=== PATIENT | female | born 1960 | race Hispanic/Latino ===

== ENCOUNTER 2018-02-24 02:24 | Emergency (ER) | payer OTHER ==
[2018-02-24 02:32] VITALS: BP 124/80; PULSE 82; RESP 18; TEMP 98.3; O2SAT 97; BMI 18.1
--- NOTE | 2018-02-24 02:50 | ED PDOC ---
Arrival/HPI - General Chief Complaint: Alcohol Ingestion Time Seen by Provider: 02/24/18 02:27 Historian: Patient - History of Present Illness Narrative History of Present Illness (Text): 02/24/18 02:48 57 year old patient, with past medical history of alcohol abuse, presents to the emergency department via EMS after being found intoxicated in the street. Patient is walking around the emergency department normally and would like to go home. Patient denies any fever, chills, headache, dizziness, chest pain, shortness of breath, cough, abdominal pain, nausea, vomiting, diarrhea, back pain, neck pain, urinary/bowel changes, or any other complaint. Time/Duration: Prior to Arrival Past Medical History - Provider Review Nursing Documentation Reviewed: Yes - Infectious Disease Hx of Infectious Diseases: None - Tetanus Immunization Tetanus Immunization: Unknown - Past Medical History Past Medical History: No Previous - Cardiac Hx Cardiac Disorders: No - Pulmonary Hx Respiratory Disorders: No - Neurological Hx Neurological Disorder: No - HEENT Hx HEENT Disorder: No - Renal Hx Renal Disorder: No - Endocrine/Metabolic Hx Endocrine Disorders: No - Hematological/Oncological Hx Blood Disorders: No - Integumentary Hx Dermatological Disorder: No - Musculoskeletal/Rheumatological Hx Musculoskeletal Disorders: No - Gastrointestinal Hx Gastrointestinal Disorders: No - Genitourinary/Gynecological Hx Genitourinary Disorders: No - Psychiatric Hx Psychophysiologic Disorder: No Hx Substance Use: No - Past Surgical History Past Surgical History: Unable to Obtain - Surgical History Hx Section: Yes - Anesthesia Hx Anesthesia: Yes Hx Anesthesia Reactions: No Hx Malignant Hyperthermia: No - Suicidal Assessment Feels Threatened In Home Enviroment: No Family/Social History - Physician Review Nursing Documentation Reviewed: Yes Family/Social History: No Known Family HX Smoking Status: Heavy Smoker > 10 Cigarettes Daily 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) Hx Substance Use: No Hx Substance Use Treatment: No Allergies/Home Meds Allergies/Adverse Reactions: Allergies No Known Allergies Allergy (Verified 07/23/15 20:13) Home Medications: Home Meds Medication Instructions Recorded Confirmed Unobtainable 07/23/15 07/23/15 Review of Systems - Physician Review All systems were reviewed & negative as marked: Yes - Review of Systems Constitutional: absent: Fevers, Night Sweats Respiratory: absent: SOB, Cough Cardiovascular: absent: Chest Pain Gastrointestinal: absent: Abdominal Pain, Diarrhea, Nausea, Vomiting Genitourinary Female: absent: Urine Output Changes Musculoskeletal: absent: Back Pain, Neck Pain Neurological: absent: Headache, Dizziness Physical Exam Vital Signs Reviewed: Yes Vital Signs Temp Pulse Resp BP Pulse Ox 02/24/18 02:31 98.3 F 82 18 124/80 97 Temperature: Afebrile Blood Pressure: Normal Pulse: Regular Respiratory Rate: Normal Appearance: Positive for: Well-Appearing, Non-Toxic, Comfortable Pain Distress: None Mental Status: Positive for: Alert and Oriented X 3 - Systems Exam Head: Present: Atraumatic, Normocephalic Pupils: Present: PERRL Extroacular Muscles: Present: EOMI Conjunctiva: Present: Normal Mouth: Present: Moist Mucous Membranes Neck: Present: Normal Range of Motion Respiratory/Chest: Present: Clear to Auscultation, Good Air Exchange. No: Respiratory Distress, Accessory Muscle Use Cardiovascular: Present: Regular Rate and Rhythm, Normal S1, S2. No: Murmurs Abdomen: No: Tenderness, Distention, Peritoneal Signs Back: Present: Normal Inspection Upper Extremity: Present: Normal Inspection. No: Cyanosis, Edema Lower Extremity: Present: Normal Inspection. No: Edema Neurological: Present: GCS=15, CN II-XII Intact, Speech Normal Skin: Present: Warm, Dry, Normal Color. No: Rashes Medical Decision Making ED Course and Treatment: 02/24/18 02:51 Impression: 57 year old female presents to the emergency department via EMS after being found intoxicated in the street. Plan: -- Reassess and disposition Prior Visits: Notes and results from previous visits were reviewed. Progress Notes: - Scribe Statement The provider has reviewed the documentation as recorded by the Tg Huynh Provider Scribe Attestation: All medical record entries made by the Meganibole were at my direction and personally dictated by me. I have reviewed the chart and agree that the record accurately reflects my personal performance of the history, physical exam, medical decision making, and the department course for this patient. I have also personally directed, reviewed, and agree with the discharge instructions and disposition. Disposition/Present on Arrival - Present on Arrival Any Indicators Present on Arrival: No History of DVT/PE: No History of Uncontrolled Diabetes: No Urinary Catheter: No History of Decub. Ulcer: No History Surgical Site Infection Following: None - Disposition Have Diagnosis and Disposition been Completed?: Yes Diagnosis: Alcohol use Disposition: HOME/ ROUTINE Disposition Time: 02:40 Condition: IMPROVED Discharge Instructions (ExitCare): Alcohol Use - When Is Drinking a Problem? Additional Instructions: DONOVAN DIALLO, thank you for letting us take care of you today. Your provider was Mike Hollins DO and you were treated for ETOH. The emergency medical care you received today was directed at your acute symptoms. If you were prescribed any medication, please fill it and take as directed. It may take several days for your symptoms to resolve. Return to the Emergency Department if your symptoms worsen, do not improve, or if you have any other problems. Please contact your doctor or call one of the physicians/clinics you have been referred to that are listed on the Patient Visit Information form that is included in your discharge packet. Bring any paperwork you were given at discharge with you along with any medications you are taking to your follow up visit. Our treatment cannot replace ongoing medical care by a primary care provider outside of the emergency department. Thank you for allowing the [facility] team to be part of your care today. Follow up with your primary care doctor in 2-3 days for re-evaluation. Referrals: Winsome Mar MD [Primary Care Provider] - Follow up with primary Forms: [employer] (Georgian)
== END 2018-02-24 02:40 | disposition home or self-care (01) ==
LOC: ED 02:24
DX: Z72.89 Other problems related to lifestyle (principal); F17.210 Nicotine dependence, cigarettes, uncomplicated

== ENCOUNTER 2018-03-21 11:34 | Emergency (ER) | payer OTHER ==
[2018-03-21 11:50] VITALS: BMI 26.2
[2018-03-21 11:56] VITALS: RESP 18
--- NOTE | 2018-03-21 12:45 | ED PDOC ---
Arrival/HPI - General Chief Complaint: Alcohol Ingestion Time Seen by Provider: 03/21/18 12:40 Historian: EMS - History of Present Illness Narrative History of Present Illness (Text): 57yo female, history of hypertension, copd, brought to Emergency room by EMS due to public intoxication. Patient denies any medical complaints at this time and wants to leave the Emergency room. A full HPI is unavailable due to patient's drunken state. Symptom Onset: Gradual Past Medical History - Provider Review Nursing Documentation Reviewed: Yes - Infectious Disease Hx of Infectious Diseases: None - Tetanus Immunization Tetanus Immunization: Unknown - Reproductive Menopause: Yes - Past Medical History Past Medical History: No Previous - Cardiac Hx Cardiac Disorders: No - Pulmonary Hx Respiratory Disorders: No - Neurological Hx Neurological Disorder: No - HEENT Hx HEENT Disorder: No - Renal Hx Renal Disorder: No - Endocrine/Metabolic Hx Endocrine Disorders: No - Hematological/Oncological Hx Blood Disorders: No - Integumentary Hx Dermatological Disorder: No - Musculoskeletal/Rheumatological Hx Musculoskeletal Disorders: No - Gastrointestinal Hx Gastrointestinal Disorders: No - Genitourinary/Gynecological Hx Genitourinary Disorders: No - Psychiatric Hx Psychophysiologic Disorder: No Hx Substance Use: No - Past Surgical History Past Surgical History: Unable to Obtain - Surgical History Hx Section: Yes - Anesthesia Hx Anesthesia: Yes Hx Anesthesia Reactions: No Hx Malignant Hyperthermia: No - Suicidal Assessment Feels Threatened In Home Enviroment: No Family/Social History - Physician Review Nursing Documentation Reviewed: Yes Smoking Status: Heavy Smoker > 10 Cigarettes Daily 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 ENT: normal pharynx Eye: EOMI, PERRL Neck: no JVD, supple, no adenopathy CV: regular rate, regular rhythm, no rubs, no murmur, no gallops, S1, S2, pulses equal and strong Pulm: no distress, clear to auscultation, no wheeze, no rhonchi, breath sounds equal, no rales Abd: soft, nontender, no guarding, no rebound, no rigidity, normal bowel sounds Ext: no edema Skin: good color, no rash, no cyanosis Psych: Intoxicated Neuro: oriented x 3, CN2-12 intact grossly, motor intact, sensation intact Vital Signs Temp Pulse Resp BP Pulse Ox 03/21/18 11:34 98.3 F 48 L 18 136/85 93 L Medical Decision Making ED Course and Treatment: Impression: 57yo female, brought to Emergency room due to intoxication Plan: -- Patient placed in 4 point restraints due to concerns of safety -- Reassess and disposition Prior Visits: Notes and results from previous visits were reviewed. Patient seen in Emergency room on 02/24/18 due to intoxication and was discharged home. Progress Notes: 03/21/18 15:42 patient is awake and alert, clinically sober, clear speech and witnessed to have steady gait. patient denies HI or SI and appears stable for dc. - Scribe Statement The provider has reviewed the documentation as recorded by the Tg Kang Provider Scribe Attestation: All medical record entries made by the Meganibole were at my direction and personally dictated by me. I have reviewed the chart and agree that the record accurately reflects my personal performance of the history, physical exam, medical decision making, and the department course for this patient. I have also personally directed, reviewed, and agree with the discharge instructions and disposition. Disposition/Present on Arrival - Present on Arrival Any Indicators Present on Arrival: No History of DVT/PE: No History of Uncontrolled Diabetes: No Urinary Catheter: No History of Decub. Ulcer: No History Surgical Site Infection Following: None - Disposition Have Diagnosis and Disposition been Completed?: Yes Diagnosis: Alcohol intoxication Disposition: HOME/ ROUTINE Disposition Time: 15:43 Patient Plan: Discharge Discharge Instructions (ExitCare): Alcohol Abuse and Alcoholism (DC) Forms: [employer] (Nepali)
[2018-03-21 15:32] VITALS: O2SAT 95
[2018-03-21 15:52] VITALS: BP 132/75; PULSE 52; TEMP 98
== END 2018-03-21 15:50 | disposition home or self-care (01) ==
LOC: ED 11:34
DX: F10.129 Alcohol abuse with intoxication, unspecified (principal)

== ENCOUNTER 2018-05-22 23:40 | Inpatient (IN) | payer MEDICAID, OTHER ==
--- NOTE | 2018-05-23 00:36 | ED PDOC ---
Arrival/HPI - General Historian: Patient - History of Present Illness Narrative History of Present Illness (Text): Yasmin Kent is a 57 year old female smoker, whose past medical history includes alcohol abuse, COPD, hypertension, and anemia, who presents to the Emergency department complaining of shortness of breath for the past 4 hours. Patient reports associated chest tightness and productive cough with yellow sputum over the last few days. Patient admits to drinking 1 beer with lunch today. Patient takes her medications as prescribed. Patient denies any fever, chills, chest pain, diaphoresis, palpitation, jaw pain, arm pain, dizziness, headache, hemoptysis, abdominal pain, nausea, vomiting, diarrhea, or any other complaints, Symptom Onset: Gradual Symptom Course: Unchanged Activities at Onset: Light Context: Home <Katya Dangelo - Last Filed: 05/23/18 02:29> <Steve Cruz - Last Filed: 05/23/18 02:31> - General Chief Complaint: Shortness Of Breath Time Seen by Provider: 05/22/18 23:54 Past Medical History - Provider Review Nursing Documentation Reviewed: Yes - Infectious Disease Hx of Infectious Diseases: None - Tetanus Immunization Tetanus Immunization: Unknown - Past Medical History Past Medical History: No Previous - Cardiac Hx Cardiac Disorders: No - Pulmonary Hx Respiratory Disorders: No - Neurological Hx Neurological Disorder: No - HEENT Hx HEENT Disorder: No - Renal Hx Renal Disorder: No - Endocrine/Metabolic Hx Endocrine Disorders: No - Hematological/Oncological Hx Blood Disorders: No - Integumentary Hx Dermatological Disorder: No - Musculoskeletal/Rheumatological Hx Musculoskeletal Disorders: No - Gastrointestinal Hx Gastrointestinal Disorders: No - Genitourinary/Gynecological Hx Genitourinary Disorders: No - Psychiatric Hx Psychophysiologic Disorder: No Hx Substance Use: No - Past Surgical History Past Surgical History: Unable to Obtain - Surgical History Hx Section: Yes - Anesthesia Hx Anesthesia: Yes Hx Anesthesia Reactions: No Hx Malignant Hyperthermia: No - Suicidal Assessment Feels Threatened In Home Enviroment: No <Katya Dangelo - Last Filed: 05/23/18 02:29> Family/Social History - Physician Review Nursing Documentation Reviewed: Yes Family/Social History: Unknown Family HX Smoking Status: Heavy Smoker > 10 Cigarettes Daily 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 absent: Fevers Eyes: Normal ENT: Normal Respiratory: SOB, Cough, Sputum Cardiovascular: absent: Chest Pain Gastrointestinal: Normal. absent: Abdominal Pain, Diarrhea, Nausea, Vomiting Genitourinary Female: Normal. absent: Dysuria, Frequency, Hematuria, Urine Output Changes Musculoskeletal: Normal. absent: Back Pain, Neck Pain Skin: Normal. absent: Rash Neurological: Normal. absent: Headache, Dizziness Endocrine: Normal Hemo/Lymphatic: Normal Psychiatric: Normal <Reynaldo Dangeloyssa - Last Filed: 05/23/18 02:29> Physical Exam Vital Signs Reviewed: Yes Vital Signs Temp Pulse Resp BP Pulse Ox 05/23/18 00:06 97.6 F 74 20 133/86 100 Temperature: Afebrile Blood Pressure: Normal Pulse: Regular Respiratory Rate: Normal Appearance: Positive for: Non-Toxic, Unkept, Other (Smells of tobacco) Pain Distress: None Mental Status: Positive for: Alert and Oriented X 3 - Systems Exam Head: Present: Atraumatic, Normocephalic Pupils: Present: PERRL Extroacular Muscles: Present: EOMI Conjunctiva: Present: Normal Ears: Present: Normal, NORMAL TM, Normal Canal. No: Erythema, TM Bulging, Fluid, TM Perf Mouth: Present: Moist Mucous Membranes Pharnyx: Present: Normal. No: ERYTHEMA, EXUDATE, TONSILS ENLARGED, Peritonsilar Swelling, Uvular Deviation, Muffled/Hoarse Voice, Strider, Soft Palate/Uvular Edema Nose (External): Present: Atraumatic Nose (Internal): Present: Normal Inspection Neck: Present: Normal Range of Motion. No: Meningeal Signs, MIDLINE TENDERNESS, Paraspinal Tenderness Respiratory/Chest: Present: Wheezes (Diffuse inspiratory and expiratory wheezing bilaterally, R>L). No: Respiratory Distress, Accessory Muscle Use Cardiovascular: Present: Regular Rate and Rhythm, Normal S1, S2. No: Murmurs Abdomen: No: Tenderness, Distention, Peritoneal Signs Back: Present: Normal Inspection. No: CVA Tenderness, Midline Tenderness, Paraspinal Tenderness Upper Extremity: Present: Normal Inspection. No: Cyanosis, Edema Lower Extremity: Present: Normal Inspection. No: Edema Neurological: Present: GCS=15, CN II-XII Intact, Speech Normal Skin: Present: Warm, Dry, Normal Color. No: Rashes Psychiatric: Present: Alert, Oriented x 3, Normal Insight, Normal Concentration <Katya Dangelo - Last Filed: 05/23/18 02:29> Vital Signs Temp Pulse Resp BP Pulse Ox 05/23/18 00:06 97.6 F 74 20 133/86 100 <Steve Cruz - Last Filed: 05/23/18 02:31> Medical Decision Making ED Course and Treatment: Impression: 57 year old female complaining of shortness of breath, productive cough with yellow sputum. Plan: -- CBC, CMP -- Cardiac Iso -- BNP -- Alcohol serum -- EKG -- Chest X-ray -- Aspirin -- Solu-medrol -- Duoneb -- Reassess and disposition Prior Visits: Notes and results from previous visits were reviewed. Progress Notes: Reviewed EKG, NSR at 79 bpm. Normal intervals. Non-specific ST changes. CXR Impression: As read by me, flattened diaphragm, otherwise no acute processes. 05/23/18 02:[address] Bryan, who is aware and agrees with plan. Accepts pt in to hospitalist service. resident care provider notified. 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 Physician - EKG Interpretation Interpreted by ED Physician: Yes Type: 12 lead EKG - Medication Orders Current Medication Orders: Albuterol/Ipratropium (Duoneb 3 Mg/0.5 Mg (3 Ml) Ud) 3 ml IH Q15M ALBA Stop: 05/23/18 01:16 Methylprednisolone (Solu-Medrol) 125 mg IVP STAT STA Stop: 05/23/18 00:33 <Katya Dangelo - Last Filed: 05/23/18 02:29> - Lab Interpretations Lab Results: 05/23/18 00:50 05/23/18 00:50 Lab Results 05/23/18 00:50: Sodium 143, Potassium 3.6, Chloride 112 H, Carbon Dioxide 22, Anion Gap 12, BUN 15, Creatinine 0.7, Est GFR ( Amer) > 60, Est GFR (Non- Af Amer) > 60, Random Glucose 84, Calcium 8.9, Total Bilirubin 0.1 L, AST 39 H, ALT 27, Alkaline Phosphatase 71, Lactate Dehydrogenase 545, Total Creatine Kinase 161, Troponin I < 0.01, NT-Pro-B Natriuret Pep 87.3, Total Protein 7.1, Albumin 4.0, Globulin 3.2, Albumin/Globulin Ratio 1.2 05/23/18 00:50: WBC 6.8, RBC 3.21 L, Hgb 10.6 L, Hct 32.9 L, MCV 102.5, MCH 33.0, MCHC 32.2, RDW 15.1 H, Plt Count 368, MPV 8.3, Gran % 55.0, Lymph % (Auto) 33.0, [place] % (Auto) 8.1 H, Eos % (Auto) 2.6, Baso % (Auto) 1.3, Gran # 3.75, Lymph # (Auto) 2.3, [place] # (Auto) 0.6, Eos # (Auto) 0.2, Baso # (Auto) 0.09 - RAD Interpretation Radiology Orders: 05/23/18 00:05 CXR (PA/LAT) [CHEST TWO VIEWS (PA/LAT)] [RAD] Stat - Medication Orders Current Medication Orders: Discontinued Medications Albuterol/Ipratropium (Duoneb 3 Mg/0.5 Mg (3 Ml) Ud) 3 ml IH Q15M ALBA Stop: 05/23/18 01:16 Last Admin: 05/23/18 01:20 Dose: 3 ml Aspirin (Aspirin) 325 mg PO STAT STA Stop: 05/23/18 00:35 Last Admin: 05/23/18 01:37 Dose: 325 mg Methylprednisolone (Solu-Medrol) 125 mg IVP STAT STA Stop: 05/23/18 00:33 Last Admin: 05/23/18 01:00 Dose: 125 mg IVP Administration Document 05/23/18 01:00 MILLY (Rec: 05/23/18 01:38 RG [id number]) Charges for Administration # of IVP Administrations 1 <Steve Cruz - Last Filed: 05/23/18 02:31> - Scribe Statement The provider has reviewed the documentation as recorded by the Tg Son Provider Scribe Attestation: All medical record entries made by the Scribe were at my direction and personally dictated by me. I have reviewed the chart and agree that the record accurately reflects my personal performance of the history, physical exam, medical decision making, and the department course for this patient. I have also personally directed, reviewed, and agree with the discharge instructions and disposition. <Katya Dangelo - Last Filed: 05/23/18 02:29> - PA / BILINGUAL INSTRUCTOR / Resident Statement / has reviewed & agrees with the documentation as recorded. / has examined the patient and agrees with the treatment plan. <Steve Cruz - Last Filed: 05/23/18 02:31> Disposition/Present on Arrival - Present on Arrival History of DVT/PE: No History of Uncontrolled Diabetes: No Urinary Catheter: No History of Decub. Ulcer: No History Surgical Site Infection Following: None <Katya Dangelo - Last Filed: 05/23/18 02:29> - Present on Arrival Any Indicators Present on Arrival: No History of DVT/PE: No History of Uncontrolled Diabetes: No Urinary Catheter: No History of Decub. Ulcer: No History Surgical Site Infection Following: None - Disposition Have Diagnosis and Disposition been Completed?: Yes Disposition Time: 02:31 <Steve Cruz - Last Filed: 05/23/18 02:31> - Disposition Diagnosis: COPD exacerbation Disposition: HOSPITALIZED Condition: STABLE Referrals: Winsome Mar MD [Primary Care Provider] - Follow up with primary Forms: [employer] (Tajik)
[2018-05-23] MEDS: Albuterol-Ipratrop 3 mg / 0.5 (3 ml) UD IH SCH ×6 (00:46→20:26)
[2018-05-23 01:54] LABS: ALB/GLOB RATIO 1.2 (1.1-1.8); ALT/SGPT 27 U/L (7-56); AST/SGOT 39 U/L (14-36); BLOOD UREA NITROGEN 15 mg/dL (7-21); CALCIUM 8.9 mg/dL (8.4-10.5); GFR NON-AFRICAN AMERICAN > 60
[2018-05-23 02:05] LABS: B-TYPE NATRIURETIC PEPTIDE 87.3 pg/mL (0-450); TROPONIN I < 0.01 ng/mL
[2018-05-23 02:13] LABS: BASO # 0.09 K/mm3 (0.0-2.0); BASO % 1.3 % (0.0-3.0); EOS # 0.2 (0.0-0.7); EOS % 2.6 % (1.5-5.0); GRAN # 3.75 (1.4-6.5); HEMOGLOBIN 10.6 g/dL (12.0-16.0); LYMPH # 2.3 (1.2-3.4); MEAN CELL VOLUME 102.5 fl (80.0-105.0); MEAN CORPUSCULAR HGB CONC 32.2 g/dl (31.0-37.0); MEAN PLATELET VOLUME 8.3 fl (7.0-11.0); MONO # 0.6 (0.1-0.6); MONO % 8.1 % (1.0-6.0); RBC 3.21 10^6/uL (3.5-6.1); RED CELL DISTRIBUTION WIDTH 15.1 % (11.5-14.5); WHITE BLOOD COUNT 6.8 10^3/uL (4.5-11.0)
--- NOTE | 2018-05-23 03:17 | CP.PCM.HP ---
<Sharon Pablo - Last Filed: 05/23/18 03:48> History of Present Illness - History of Present Illness History of Present Illness: Sharon Pablo, PGY1 Hospital H&P This is a 57 year old female with PMH of anemia, HTN, COPD, alcohol abuse with multiple ED visits for public intoxication presenting to the ED for chest pressure, productive cough with yellow sputum and SOB that began Tuesday. Patient states she has been short of breath over the last 3-4 days and started to feel chest pressure with productive cough over the last day. She denies having similar symptoms in the past. She states her last drink was a few days ago when she had 2 beers. She says she is compliant with her medications which consist of an iron pill and an unknown blood pressure medication. She denies chest pain, vomiting, fevers, chills, headaches, runny nose, sinus congestion, hemoptysis back pain, abdominal pain, urinary complaints, numbness, tingling, swelling, diarrhea, constipation, recent travel, sickness, trauma and lifestyle changes. 12 point ROS noted here, otherwise unremarkable. PMD: Dr. Winsome Mar Pharmacy[facility]: iron pill, unknown BP pill PMH: anemia, HTN, COPD, alcohol abuse SH: drinks 3-5 beers per week, sometimes "more" for many years, smokes 1/2 ppd for 40 years, denies drug use Sx: 2 x 30 years ago FH: denies All: antihistimines Present on Admission - Present on Admission Any Indicators Present on Admission: No Past Patient History - Infectious Disease Hx of Infectious Diseases: None - Tetanus Immunizations Tetanus Immunization: Unknown - Past Social History Smoking Status: Heavy Smoker > 10 Cigarettes Daily - CARDIAC Hx Cardiac Disorders: No - PULMONARY Hx Respiratory Disorders: No - NEUROLOGICAL Hx Neurological Disorder: No - HEENT Hx HEENT Problems: No - RENAL Hx Chronic Kidney Disease: No - ENDOCRINE/METABOLIC Hx Endocrine Disorders: No - HEMATOLOGICAL/ONCOLOGICAL Hx Blood Disorders: No - INTEGUMENTARY Hx Dermatological Problems: No - MUSCULOSKELETAL/RHEUMATOLOGICAL Hx Musculoskeletal Disorders: No - GASTROINTESTINAL Hx Gastrointestinal Disorders: No - GENITOURINARY/GYNECOLOGICAL Hx Genitourinary Disorders: No - PSYCHIATRIC Hx Psychophysiologic Disorder: No Hx Substance Use: No - SURGICAL HISTORY Hx Section: Yes - ANESTHESIA Hx Anesthesia: Yes Hx Anesthesia Reactions: No Hx Malignant Hyperthermia: No Meds Allergies/Adverse Reactions: Allergies Allergy/AdvReac Type Severity Reaction Status Date / Time Antihistamines - Alkylamine Allergy RASH Verified 05/22/18 23:48 Physical Exam - Constitutional Appears: No Acute Distress - Head Exam Head Exam: ATRAUMATIC, NORMAL INSPECTION - Eye Exam Eye Exam: EOMI Pupil Exam: PERRL - ENT Exam ENT Exam: Mucous Membranes Moist - Respiratory Exam Respiratory Exam: Wheezes. absent: Accessory Muscle Use, Respiratory Distress Additional comments: expiratory wheezing appreciated in all lung levin - Cardiovascular Exam Cardiovascular Exam: REGULAR RHYTHM, +S1, +S2 - GI/Abdominal Exam GI & Abdominal Exam: Normal Bowel Sounds, Soft. absent: Firm, Guarding, Tenderness - Extremities Exam Extremities exam: Positive for: normal inspection, pedal pulses present. Negative for: calf tenderness - Back Exam Back exam: NORMAL INSPECTION. absent: CVA tenderness (L), CVA tenderness (R) - Neurological Exam Neurological exam: Alert, Oriented x3 - Skin Skin Exam: Normal Color, Warm Results - Vital Signs Recent Vital Signs: Last Vital Signs Temp 97.6 F 05/23/18 00:06 Pulse 74 05/23/18 00:06 Resp 20 05/23/18 00:06 BP 133/86 05/23/18 00:06 Pulse Ox 100 05/23/18 00:06 - Labs Result Diagrams: 05/23/18 00:50 05/23/18 00:50 Labs: Laboratory Results - last 24 hr 05/23/18 05/23/18 05/23/18 00:50 00:50 00:50 WBC 6.8 RBC 3.21 L Hgb 10.6 L Hct 32.9 L MCV 102.5 MCH 33.0 MCHC 32.2 RDW 15.1 H Plt Count 368 MPV 8.3 Gran % 55.0 Lymph % (Auto) 33.0 [place] % (Auto) 8.1 H Eos % (Auto) 2.6 Baso % (Auto) 1.3 Gran # 3.75 Lymph # (Auto) 2.3 [place] # (Auto) 0.6 Eos # (Auto) 0.2 Baso # (Auto) 0.09 Sodium 143 Potassium 3.6 Chloride 112 H Carbon Dioxide 22 Anion Gap 12 BUN 15 Creatinine 0.7 Est GFR ( Amer) > 60 Est GFR (Non-Af Amer) > 60 Random Glucose 84 Calcium 8.9 Total Bilirubin 0.1 L AST 39 H ALT 27 Alkaline Phosphatase 71 Lactate Dehydrogenase 545 Total Creatine Kinase 161 Troponin I < 0.01 NT-Pro-B Natriuret Pep 87.3 Total Protein 7.1 Albumin 4.0 Globulin 3.2 Albumin/Globulin Ratio 1.2 Alcohol, Quantitative 166 H Assessment & Plan - Assessment and Plan (Free Text) Assessment: This is a 57 year old female with PMH of anemia, HTN, COPD, alcohol abuse with multiple ED visits for public intoxication presenting to the ED for chest pressure, productive cough with yellow sputum and SOB that began Tuesday. Plan: Shortness of breath -COPD exacerbation vs URI -ABG pending -CXR shows increased AP diameter and flattened diaphragm consistent with COPD. F/u official read -duonebs prn and chucky -azithromycin and rocephin -solumedrol 40mg IVP BID -UDS pending Hx of alcohol abuse -CIWA protocol -ativan prn -seizure precautions -alcohol level of 166 on admission -bannana bag -social welfare administrator referral for alcohol education Hx of tobacco use -nicotine patch -social welfare administrator referral for tobacco education Hx of HTN -BP currently controlled -patient cannot remember BP med, her pharmacy is [facility] in [place] Hx of anemia -iron studies, B12, folate pending -continue iron tab PPX with protonix and lovenox HHD Patient seen and examined with attending, Dr. Bryan <Daniela Bryan - Last Filed: 05/23/18 05:28> Results - Vital Signs Recent Vital Signs: Last Vital Signs Temp 97.6 F 05/23/18 00:06 Pulse 74 05/23/18 00:06 Resp 20 05/23/18 00:06 BP 133/86 05/23/18 00:06 Pulse Ox 100 05/23/18 00:06 - Labs Result Diagrams: 05/23/18 00:50 05/23/18 00:50 Labs: Laboratory Results - last 24 hr 05/23/18 05/23/18 05/23/18 00:50 00:50 00:50 WBC 6.8 RBC 3.21 L Hgb 10.6 L Hct 32.9 L MCV 102.5 MCH 33.0 MCHC 32.2 RDW 15.1 H Plt Count 368 MPV 8.3 Gran % 55.0 Lymph % (Auto) 33.0 [place] % (Auto) 8.1 H Eos % (Auto) 2.6 Baso % (Auto) 1.3 Gran # 3.75 Lymph # (Auto) 2.3 [place] # (Auto) 0.6 Eos # (Auto) 0.2 Baso # (Auto) 0.09 Sodium 143 Potassium 3.6 Chloride 112 H Carbon Dioxide 22 Anion Gap 12 BUN 15 Creatinine 0.7 Est GFR ( Amer) > 60 Est GFR (Non-Af Amer) > 60 Random Glucose 84 Calcium 8.9 Total Bilirubin 0.1 L AST 39 H ALT 27 Alkaline Phosphatase 71 Lactate Dehydrogenase 545 Total Creatine Kinase 161 Troponin I < 0.01 NT-Pro-B Natriuret Pep 87.3 Total Protein 7.1 Albumin 4.0 Globulin 3.2 Albumin/Globulin Ratio 1.2 Alcohol, Quantitative 166 H Attending/Attestation - Attestation I have personally seen and examined this patient.: Yes I have fully participated in the care of the patient.: Yes I have reviewed all pertinent clinical information: Yes Notes (Text): 05/23/18 05:27 Patient was seen when she was in bed # 4 in the ER. Agree with history, physical examination, assessment and plan.
[2018-05-23] MEDS ORDERED: Albuterol-Ipratrop 3 mg / 0.5 (3 ml) UD IH PRN (03:26)
[2018-05-23] MEDS ORDERED: Multivitamin (MVI) 10 ML, Thiamine 100 MG, Folic Acid 1 MG in Sodium Chloride 0.9% 1,00... IV ONE (03:33)
[2018-05-23 04:58] LABS: ARTERIAL BLOOD GAS HCO3 20.5 mmol/L (21-28); ARTERIAL BLOOD GAS HEMOGLOBIN 10.3 g/dL (11.7-17.4); ARTERIAL BLOOD GAS O2 CAPACITY 13.9 mL/dl (16-24); ARTERIAL BLOOD GAS O2 CONTENT 13.7 ML/dl (15-23); ARTERIAL BLOOD GAS O2 SAT 98.7 % (95-98); ARTERIAL BLOOD GAS PCO2 38 mm/Hg (35-45); ARTERIAL BLOOD GAS PH 7.34 (7.35-7.45); ARTERIAL BLOOD GAS TCO2 21.7 mmol.L (22-28)
[2018-05-23 06:05] LABS: BASO # 0.06 K/mm3 (0.0-2.0); BASO % 0.7 % (0.0-3.0); EOS % 0.2 % (1.5-5.0); GRAN # 7.88 (1.4-6.5); GRAN % 92.2 % (50.0-68.0); HEMOGLOBIN 11.1 g/dL (12.0-16.0); LYMPH # 0.6 (1.2-3.4); LYMPH % 6.5 % (22.0-35.0); MEAN CELL VOLUME 102.4 fl (80.0-105.0); MEAN CORPUSCULAR HEMOGLOBIN 33.2 pg (25.0-35.0); MEAN CORPUSCULAR HGB CONC 32.5 g/dl (31.0-37.0); MEAN PLATELET VOLUME 8.4 fl (7.0-11.0); MONO % 0.4 % (1.0-6.0); PLATELET COUNT 384 10^3/uL (120.0-450.0); RBC 3.34 10^6/uL (3.5-6.1); RED CELL DISTRIBUTION WIDTH 15.1 % (11.5-14.5); WHITE BLOOD COUNT 8.6 10^3/uL (4.5-11.0)
[2018-05-23 06:13] LABS: IRON 35 ug/dL (45-180)
[2018-05-23 06:15] LABS: ALB/GLOB RATIO 1.2 (1.1-1.8); ALBUMIN 4.3 g/dL (3.0-4.8); ALT/SGPT 24 U/L (7-56); AST/SGOT 41 U/L (14-36); BLOOD UREA NITROGEN 15 mg/dL (7-21); CALCIUM 9.2 mg/dL (8.4-10.5); GFR NON-AFRICAN AMERICAN > 60
[2018-05-23 06:22] LABS: % IRON SATURATION 8 % (20-55); TOTAL IRON BINDING CAPACITY 443 ug/dL (265-497)
[2018-05-23 06:39] LABS: BAND 2 % (0-2); BASOPHIL 1 % (0.0-1.0); EOSINOPHIL 1 % (0.0-3.0); LYMPHOCYTE 7 % (22.0-35.0); MONOCYTE 1 % (1.0-6.0); NEUTROPHIL 88 % (50.0-70.0); PLATELET ESTIMATE NORMAL (NORMAL)
[2018-05-23 07:03] LABS: BARBITURATES, UR NEGATIVE (NEGATIVE); BENZODIAZEPINES, UR NEGATIVE (NEGATIVE); OPIATES, UR NEGATIVE (NEGATIVE); PHENCYCLIDINE, UR NEGATIVE (NEGATIVE)
[2018-05-23] MEDS: Pantoprazole 40 mg EC Tab PO SCH (07:14)
--- NOTE | 2018-05-23 08:18 | RAD ---
Date of service: 05/23/2018 HISTORY: SOB COMPARISON: No prior. TECHNIQUE: Chest PA and lateral FINDINGS: LUNGS: No active pulmonary disease. PLEURA: No significant pleural effusion identified. No pneumothorax apparent. CARDIOVASCULAR: No aortic atherosclerotic calcification present. Normal cardiac size. No pulmonary vascular congestion. OSSEOUS STRUCTURES: No significant abnormalities. VISUALIZED UPPER ABDOMEN: Normal. OTHER FINDINGS: None. IMPRESSION: No active disease.
[2018-05-23] MEDS ORDERED: cefTRIAXone 1 gm 1 GM/100 ML BAG IVPB SCH (10:00)
[2018-05-23] MEDS: MethylPREDNISolone 40 mg Vial IVP SCH ×2 (10:33→21:28)
[2018-05-23] MEDS: Azithromycin 500MG/NS 250ml 500 MG/250 ML BAG IVPB SCH (10:33)
[2018-05-23] MEDS: Enoxaparin 40 mg Syringe SC SCH (10:34)
[2018-05-23] MEDS: Iron Complex Polysacch 150mg Cap PO SCH (10:34)
[2018-05-23 12:05] VITALS: BMI 18.1
[2018-05-23 14:04] LABS: FOLATE 10.4 ng/mL
--- NOTE | 2018-05-23 18:50 | CARD ---
APPROVED REPORT Date of service: 05/23/2018 EKG Measurement Heart [id number] <Conclusion> Normal sinus rhythm Possible Left atrial enlargement Anteroseptal infarct, age undetermined Abnormal ECG
[2018-05-24] MEDS: Albuterol-Ipratrop 3 mg / 0.5 (3 ml) UD IH SCH ×4 (01:28→20:53)
[2018-05-24] MEDS: Pantoprazole 40 mg EC Tab PO SCH (05:09)
[2018-05-24 06:37] LABS: GRAN # 12.98 (1.4-6.5); GRAN % 92.1 % (50.0-68.0); HEMOGLOBIN 9.7 g/dL (12.0-16.0); LYMPH # 0.5 (1.2-3.4); LYMPH % 3.8 % (22.0-35.0); MEAN CELL VOLUME 102.3 fl (80.0-105.0); MEAN CORPUSCULAR HEMOGLOBIN 32.2 pg (25.0-35.0); MEAN CORPUSCULAR HGB CONC 31.5 g/dl (31.0-37.0); MEAN PLATELET VOLUME 8.7 fl (7.0-11.0); MONO # 0.6 (0.1-0.6); MONO % 4.1 % (1.0-6.0); RBC 3.01 10^6/uL (3.5-6.1); WHITE BLOOD COUNT 14.1 10^3/uL (4.5-11.0)
[2018-05-24 07:15] LABS: ALB/GLOB RATIO 1.1 (1.1-1.8); ALBUMIN 3.6 g/dL (3.0-4.8); ALT/SGPT 14 U/L (7-56); AST/SGOT 28 U/L (14-36); BLOOD UREA NITROGEN 15 mg/dL (7-21); CALCIUM 8.6 mg/dL (8.4-10.5); GFR NON-AFRICAN AMERICAN > 60
[2018-05-24] MEDS: Multivitamin Therapeutic Tab PO SCH (08:47)
[2018-05-24] MEDS: Iron Complex Polysacch 150mg Cap PO SCH (11:05)
[2018-05-24] MEDS: MethylPREDNISolone 40 mg Vial IVP SCH ×2 (11:06→21:39)
[2018-05-24] MEDS: Azithromycin 500MG/NS 250ml 500 MG/250 ML BAG IVPB SCH (11:06)
[2018-05-24] MEDS: Enoxaparin 40 mg Syringe SC SCH (11:07)
--- NOTE | 2018-05-24 17:15 | CP.PCM.PN ---
Subjective - Date & Time of Evaluation Date of Evaluation: 05/24/18 Time of Evaluation: 09:30 - Subjective Subjective: Cory Parrish, PGY-1 Medicine Progress Note for Dr. Avitia: Pt was seen and examined this AM at bedside. Pt states that she has some SOB when she woke up and is currently on nebulizer treatment. She states that she is already feeling better with the nebulizer treatment. She states that she is still coughing but it is improving from admission. She continues to deny fevers, chills, chest pain, palpitations, abd pain, nausea, vomiting, constipation, diarrhea or dysuria. Objective - Vital Signs/Intake and Output Vital Signs (last 24 hours): Temp Pulse Resp BP Pulse Ox 98.5 F 98 H 20 120/69 95 05/24/18 12:00 05/24/18 14:00 05/24/18 12:00 05/24/18 12:00 05/23/18 06:50 Intake and Output: 05/24/18 05/24/18 06:59 18:59 Intake Total 840 Balance 840 - Medications Medications: Current Medications Acetaminophen (Tylenol 325mg Tab) 650 mg PO Q6H PRN PRN Reason: Pain, Mild (1-3) Last Admin: 05/23/18 15:41 Dose: 650 mg Albuterol/Ipratropium (Duoneb 3 Mg/0.5 Mg (3 Ml) Ud) 3 ml IH Q2H PRN PRN Reason: Shortness of Breath Albuterol/Ipratropium (Duoneb 3 Mg/0.5 Mg (3 Ml) Ud) 3 ml IH [id number] [facility]UCKY Last Admin: 05/24/18 14:08 Dose: 3 ml Enoxaparin Sodium (Lovenox) 40 mg SC DAILY [facility]; Protocol Last Admin: 05/24/18 11:07 Dose: 40 mg Folic Acid (Folic Acid) 1 mg PO DAILY [facility] Last Admin: 05/24/18 11:07 Dose: 1 mg Azithromycin (Zithromax 500mg In Ns) 500 mg in 250 mls @ 167 mls/hr IVPB DAILY [facility]; Protocol Last Admin: 05/24/18 11:06 Dose: 167 mls/hr Lorazepam (Ativan) 2 mg IVP Q4H PRN; Protocol PRN Reason: Symptoms of alcohol withdrawl Last Admin: 05/24/18 11:07 Dose: 2 mg Methylprednisolone (Solu-Medrol) 40 mg IVP Q12 [facility] Last Admin: 05/24/18 11:06 Dose: 40 mg Multivitamins (Thera Tab) 1 tab PO 0800 [facility] Last Admin: 05/24/18 08:47 Dose: 1 tab Nicotine (Nicoderm Cq) 1 patch TD DAILY [facility] Last Admin: 05/24/18 11:06 Dose: 1 patch Pantoprazole Sodium (Protonix Ec Tab) 40 mg PO 0600 [facility] Last Admin: 05/24/18 05:09 Dose: 40 mg Polysaccharide Iron Complex (Ferrex-150) 150 mg PO DAILY [facility] Last Admin: 05/24/18 11:05 Dose: 150 mg Thiamine HCl (Vitamin B1 Tab) 100 mg PO DAILY [facility] Last Admin: 05/24/18 11:06 Dose: 100 mg - Labs Labs: 05/24/18 06:00 05/24/18 06:00 - Constitutional Appears: Well, Non-toxic, No Acute Distress - Head Exam Head Exam: ATRAUMATIC, NORMAL INSPECTION, NORMOCEPHALIC - Eye Exam Eye Exam: EOMI, Normal appearance, PERRL - Respiratory Exam Respiratory Exam: Decreased Breath Sounds, NORMAL BREATHING PATTERN. absent: Accessory Muscle Use, Rales, Rhonchi, Wheezes, Respiratory Distress, Stridor - Cardiovascular Exam Cardiovascular Exam: RRR, +S1, +S2. absent: Gallop, Rubs - GI/Abdominal Exam GI & Abdominal Exam: Soft, Normal Bowel Sounds. absent: Firm, Guarding, Rigid, Tenderness - Extremities Exam Extremities Exam: Normal Inspection. absent: Calf Tenderness, Normal Capillary Refill, Pedal Edema - Back Exam Back Exam: NORMAL INSPECTION. absent: CVA tenderness (L), CVA tenderness (R) - Neurological Exam Neurological Exam: Alert, Awake, Oriented x3 - Psychiatric Exam Psychiatric exam: Normal Affect, Normal Mood - Skin Skin Exam: Dry, Normal Color, Warm Assessment and Plan - Assessment and Plan (Free Text) Assessment: This is a 57 year old female with PMH of anemia, HTN, COPD, alcohol abuse with multiple ED visits for public intoxication presenting to the ED for chest pressure, productive cough with yellow sputum and SOB that began Tuesday. Plan: 1. COPD exacerbation -CXR shows increased AP diameter and flattened diaphragm consistent with COPD -duonebs prn and chucky -azithromycin -solumedrol 40mg IVP BID Hx of alcohol abuse -CIWA protocol -ativan prn -seizure precautions -alcohol level of 166 on admission -velvet linder -outreach and education social worker referral for alcohol education Hx of tobacco use -nicotine patch -outreach and education social worker referral for tobacco education Hx of HTN -BP currently controlled -patient cannot remember BP med, her pharmacy is [facility] in [place] Hx of anemia -iron studies, B12, folate pending -continue iron tab PPX with protonix and lovenox HHD Patient seen and examined with attending, Dr. Sadi Parrish DO Internal Medicine Resident PGY-1
[2018-05-25] MEDS: Albuterol-Ipratrop 3 mg / 0.5 (3 ml) UD IH SCH ×4 (01:53→19:59)
[2018-05-25] MEDS: Pantoprazole 40 mg EC Tab PO SCH (06:26)
[2018-05-25 07:07] LABS: BASO # 0.01 K/mm3 (0.0-2.0); BASO % 0.1 % (0.0-3.0); GRAN # 10.48 (1.4-6.5); GRAN % 89.7 % (50.0-68.0); HEMOGLOBIN 10.8 g/dL (12.0-16.0); LYMPH # 0.7 (1.2-3.4); LYMPH % 6.3 % (22.0-35.0); MEAN CELL VOLUME 102.4 fl (80.0-105.0); MEAN CORPUSCULAR HEMOGLOBIN 32.3 pg (25.0-35.0); MEAN CORPUSCULAR HGB CONC 31.6 g/dl (31.0-37.0); MEAN PLATELET VOLUME 8.8 fl (7.0-11.0); MONO # 0.5 (0.1-0.6); MONO % 3.9 % (1.0-6.0); RBC 3.34 10^6/uL (3.5-6.1); RED CELL DISTRIBUTION WIDTH 15.1 % (11.5-14.5); WHITE BLOOD COUNT 11.7 10^3/uL (4.5-11.0)
[2018-05-25 07:30] LABS: ALB/GLOB RATIO 1.1 (1.1-1.8); ALT/SGPT 23 U/L (7-56); AST/SGOT 40 U/L (14-36); BLOOD UREA NITROGEN 15 mg/dL (7-21); CALCIUM 9.7 mg/dL (8.4-10.5); GFR NON-AFRICAN AMERICAN > 60
[2018-05-25] MEDS: Benzocaine/Menthol (Cepacol) Lozenge MT PRN ×2 (11:50→19:12)
[2018-05-25] MEDS: Enoxaparin 40 mg Syringe SC SCH (11:52)
[2018-05-25] MEDS: Iron Complex Polysacch 150mg Cap PO SCH (11:53)
[2018-05-25] MEDS: Multivitamin Therapeutic Tab PO SCH (11:53)
[2018-05-25] MEDS: guaiFENesin-DM 600-30 mg ER Tab PO SCH (19:12)
--- NOTE | 2018-05-25 22:36 | CP.PCM.PN ---
<Cory Parrish - Last Filed: 05/25/18 22:32> Subjective - Date & Time of Evaluation Date of Evaluation: 05/25/18 Time of Evaluation: 11:00 - Subjective Subjective: Cory Parrish, PGY-1 Medicine Progress Note for Dr. Massey Pt was seen and examined this AM at bedside. Pt states that her SOB is improved from admission and yesterday but still is present at this time. She also states that she is already feeling better with the nebulizer treatment. She states that she is still coughing but it is improving from admission. She continues to deny fevers, chills, chest pain, palpitations, abd pain, nausea, vomiting, constipation, diarrhea or dysuria. Objective - Vital Signs/Intake and Output Vital Signs (last 24 hours): Temp Pulse Resp BP Pulse Ox 98.7 F 98 H 20 148/76 97 05/25/18 18:00 05/25/18 18:00 05/25/18 18:00 05/25/18 18:00 05/25/18 06:00 Intake and Output: 05/25/18 05/26/18 18:59 06:59 Intake Total 3060 Balance 3060 - Medications Medications: Current Medications Acetaminophen (Tylenol 325mg Tab) 650 mg PO Q6H PRN PRN Reason: Pain, Mild (1-3) Last Admin: 05/23/18 15:41 Dose: 650 mg Albuterol/Ipratropium (Duoneb 3 Mg/0.5 Mg (3 Ml) Ud) 3 ml IH Q2H PRN PRN Reason: Shortness of Breath Albuterol/Ipratropium (Duoneb 3 Mg/0.5 Mg (3 Ml) Ud) 3 ml IH [id number] [facility] Last Admin: 05/25/18 19:59 Dose: 3 ml Azithromycin (Zithromax) 500 mg PO DAILY [facility] Benzocaine/Menthol (Cepacol Sore Throat) 1 magali MT Q2H PRN PRN Reason: Sore Throat Last Admin: 05/25/18 19:12 Dose: 1 magali Enoxaparin Sodium (Lovenox) 40 mg SC DAILY [facility]; Protocol Last Admin: 05/25/18 11:52 Dose: 40 mg Folic Acid (Folic Acid) 1 mg PO DAILY [facility] Last Admin: 05/25/18 11:53 Dose: 1 mg Guaifenesin/Dextromethorphan (Mucinex-Dm 600-30 Mg) 1 tab PO BID [facility] Last Admin: 05/25/18 19:12 Dose: 1 tab Multivitamins (Thera Tab) 1 tab PO 0800 [facility] Last Admin: 05/25/18 11:53 Dose: 1 tab Nicotine (Nicoderm Cq) 1 patch TD DAILY [facility] Last Admin: 05/25/18 11:50 Dose: 1 patch Pantoprazole Sodium (Protonix Ec Tab) 40 mg PO 0600 [facility] Last Admin: 05/25/18 06:26 Dose: 40 mg Polysaccharide Iron Complex (Ferrex-150) 150 mg PO DAILY [facility] Last Admin: 05/25/18 11:53 Dose: 150 mg Prednisone (Prednisone Tab) 30 mg PO DAILY [facility] Thiamine HCl (Vitamin B1 Tab) 100 mg PO DAILY [facility] Last Admin: 05/25/18 11:52 Dose: 100 mg - Labs Labs: 05/25/18 06:20 05/25/18 06:20 - Constitutional Appears: Well, Non-toxic, No Acute Distress - Head Exam Head Exam: ATRAUMATIC, NORMAL INSPECTION, NORMOCEPHALIC - Eye Exam Eye Exam: EOMI, Normal appearance, PERRL - Respiratory Exam Respiratory Exam: Accessory Muscle Use, Clear to Ausculation Bilateral, NORMAL BREATHING PATTERN. absent: Rales, Rhonchi, Wheezes, Respiratory Distress, Stridor - Cardiovascular Exam Cardiovascular Exam: RRR, +S1, +S2. absent: Gallop, Rubs - GI/Abdominal Exam GI & Abdominal Exam: Soft, Normal Bowel Sounds. absent: Tenderness - Extremities Exam Extremities Exam: Full ROM, Normal Capillary Refill. absent: Pedal Edema - Back Exam Back Exam: NORMAL INSPECTION. absent: CVA tenderness (L), CVA tenderness (R) - Neurological Exam Neurological Exam: Alert, Awake, Oriented x3 - Psychiatric Exam Psychiatric exam: Normal Affect, Normal Mood - Skin Skin Exam: Dry, Normal Color, Warm Assessment and Plan - Assessment and Plan (Free Text) Assessment: This is a 57 year old female with PMH of anemia, HTN, COPD, alcohol abuse with multiple ED visits for public intoxication presenting to the ED for chest pressure, productive cough with yellow sputum and SOB that began Tuesday. She has been having improving SOB since admission, transitioned from IV to PO zithro and prednisone. Plan: 1. COPD exacerbation - CXR shows increased AP diameter and flattened diaphragm consistent with COPD - duonebs prn and chucky - azithromycin po - day 3 of 5 - solumedrol 40mg po BID - Robitussen DM for cough 2. Hx of alcohol abuse - [facility] protocol - seizure precautions - alcohol level of 166 on admission 3. Hx of tobacco use - nicotine patch 4. Hx of HTN - BP currently controlled 5. Hx of anemia - Fe and % saturation is low - B12, folate are both wnl - continue iron tab 6. PPX: GI: protonix DVT: lovenox HHD Patient seen and examined with attending, Dr. Shilpa Parrish DO Internal Medicine Resident PGY-1 <Alton Massey - Last Filed: 05/26/18 09:23> Objective - Vital Signs/Intake and Output Vital Signs (last 24 hours): Temp Pulse Resp BP Pulse Ox 98.6 F 68 20 177/103 H 97 05/26/18 00:01 05/26/18 07:17 05/26/18 00:01 05/26/18 07:17 05/25/18 06:00 Intake and Output: 05/26/18 05/26/18 06:59 18:59 Intake Total 960 Balance 960 - Medications Medications: Current Medications Acetaminophen (Tylenol 325mg Tab) 650 mg PO Q6H PRN PRN Reason: Pain, Mild (1-3) Last Admin: 05/23/18 15:41 Dose: 650 mg Albuterol/Ipratropium (Duoneb 3 Mg/0.5 Mg (3 Ml) Ud) 3 ml IH Q2H PRN PRN Reason: Shortness of Breath Albuterol/Ipratropium (Duoneb 3 Mg/0.5 Mg (3 Ml) Ud) 3 ml IH [id number] [id number] Last Admin: 05/26/18 08:02 Dose: 3 ml Azithromycin (Zithromax) 500 mg PO DAILY [facility] Last Admin: 05/26/18 09:09 Dose: 500 mg Benzocaine/Menthol (Cepacol Sore Throat) 1 magali MT Q2H PRN PRN Reason: Sore Throat Last Admin: 05/25/18 19:12 Dose: 1 magali Enoxaparin Sodium (Lovenox) 40 mg SC DAILY [facility]; Protocol Last Admin: 05/26/18 09:09 Dose: 40 mg Folic Acid (Folic Acid) 1 mg PO DAILY [facility] Last Admin: 05/26/18 09:08 Dose: 1 mg Guaifenesin/Dextromethorphan (Mucinex-Dm 600-30 Mg) 1 tab PO BID [facility] Last Admin: 05/26/18 09:08 Dose: 1 tab Multivitamins (Thera Tab) 1 tab PO 0800 [facility] Last Admin: 05/26/18 09:09 Dose: 1 tab Nicotine (Nicoderm Cq) 1 patch TD DAILY [facility] Last Admin: 05/26/18 09:09 Dose: 1 patch Pantoprazole Sodium (Protonix Ec Tab) 40 mg PO 0600 [facility] Last Admin: 05/26/18 05:32 Dose: 40 mg Polysaccharide Iron Complex (Ferrex-150) 150 mg PO DAILY [facility] Last Admin: 05/26/18 09:08 Dose: 150 mg Prednisone (Prednisone Tab) 30 mg PO DAILY [facility] Last Admin: 05/26/18 09:08 Dose: 30 mg Thiamine HCl (Vitamin B1 Tab) 100 mg PO DAILY [facility] Last Admin: 05/26/18 09:08 Dose: 100 mg - Labs Labs: 05/26/18 06:00 05/26/18 06:00 Attending/Attestation - Attestation I have personally seen and examined this patient.: Yes I have fully participated in the care of the patient.: Yes I have reviewed all pertinent clinical information, including history, physical exam and plan: Yes Notes (Text): COPD exacerbation: Clinically improving Minimal expiratory wheezing on exam Will change steroids to prednisone taper EtOH abuse: pt was on [facility] protocol Will DC ativan as pt has not required it Pt was counseled on EtOH use cessation 05/26/18 09:21
[2018-05-26] MEDS: Albuterol-Ipratrop 3 mg / 0.5 (3 ml) UD IH SCH ×4 (01:52→20:46)
[2018-05-26] MEDS: Pantoprazole 40 mg EC Tab PO SCH (05:32)
[2018-05-26 06:59] LABS: BASO # 0.01 K/mm3 (0.0-2.0); BASO % 0.1 % (0.0-3.0); EOS % 0.3 % (1.5-5.0); GRAN # 7.03 (1.4-6.5); HEMOGLOBIN 10.7 g/dL (12.0-16.0); LYMPH # 1.7 (1.2-3.4); LYMPH % 17.7 % (22.0-35.0); MEAN CELL VOLUME 102.1 fl (80.0-105.0); MEAN CORPUSCULAR HEMOGLOBIN 32.5 pg (25.0-35.0); MEAN CORPUSCULAR HGB CONC 31.8 g/dl (31.0-37.0); MEAN PLATELET VOLUME 8.5 fl (7.0-11.0); MONO # 0.8 (0.1-0.6); MONO % 7.9 % (1.0-6.0); RBC 3.29 10^6/uL (3.5-6.1); RED CELL DISTRIBUTION WIDTH 14.9 % (11.5-14.5); WHITE BLOOD COUNT 9.5 10^3/uL (4.5-11.0)
[2018-05-26 07:19] LABS: ALB/GLOB RATIO 1.2 (1.1-1.8); ALBUMIN 4.1 g/dL (3.0-4.8); ALT/SGPT 22 U/L (7-56); AST/SGOT 36 U/L (14-36); BLOOD UREA NITROGEN 14 mg/dL (7-21); CALCIUM 9.6 mg/dL (8.4-10.5); GFR NON-AFRICAN AMERICAN > 60
[2018-05-26] MEDS: guaiFENesin-DM 600-30 mg ER Tab PO SCH ×2 (09:08→17:35)
[2018-05-26] MEDS: Iron Complex Polysacch 150mg Cap PO SCH (09:08)
[2018-05-26] MEDS: Enoxaparin 40 mg Syringe SC SCH (09:09)
[2018-05-26] MEDS: Multivitamin Therapeutic Tab PO SCH (09:09)
--- NOTE | 2018-05-26 12:37 | CP.PCM.PN ---
<Cory Parrish - Last Filed: 05/26/18 12:34> Subjective - Date & Time of Evaluation Date of Evaluation: 05/26/18 Time of Evaluation: 12:34 - Subjective Subjective: Cory Parrish, PGY-1 Medicine Progress Note for Dr. Massey Pt was seen and examined this AM at bedside. Pt states that her SOB is improved from admission and yesterday but still is present at this time. She also admits to chest tightness and soreness at this time from her coughing but states that the cough is improving from admission. She continues to deny fevers, chills, chest pain, palpitations, abd pain, nausea, vomiting, constipation, diarrhea or dysuria. Objective - Vital Signs/Intake and Output Vital Signs (last 24 hours): Temp Pulse Resp BP Pulse Ox 98.6 F 99 H 20 131/77 97 05/26/18 00:01 05/26/18 10:00 05/26/18 00:01 05/26/18 09:00 05/25/18 06:00 Intake and Output: 05/26/18 05/26/18 06:59 18:59 Intake Total 960 Balance 960 - Medications Medications: Current Medications Acetaminophen (Tylenol 325mg Tab) 650 mg PO Q6H PRN PRN Reason: Pain, Mild (1-3) Last Admin: 05/23/18 15:41 Dose: 650 mg Albuterol/Ipratropium (Duoneb 3 Mg/0.5 Mg (3 Ml) Ud) 3 ml IH Q2H PRN PRN Reason: Shortness of Breath Albuterol/Ipratropium (Duoneb 3 Mg/0.5 Mg (3 Ml) Ud) 3 ml IH [id number] CHUCKY Last Admin: 05/26/18 08:02 Dose: 3 ml Azithromycin (Zithromax) 500 mg PO DAILY CHUCKY Last Admin: 05/26/18 09:09 Dose: 500 mg Benzocaine/Menthol (Cepacol Sore Throat) 1 magali MT Q2H PRN PRN Reason: Sore Throat Last Admin: 05/25/18 19:12 Dose: 1 magali Enoxaparin Sodium (Lovenox) 40 mg SC DAILY [facility]; Protocol Last Admin: 05/26/18 09:09 Dose: 40 mg Folic Acid (Folic Acid) 1 mg PO DAILY [facility] Last Admin: 05/26/18 09:08 Dose: 1 mg Guaifenesin/Dextromethorphan (Mucinex-Dm 600-30 Mg) 1 tab PO BID [facility] Last Admin: 05/26/18 09:08 Dose: 1 tab Multivitamins (Thera Tab) 1 tab PO 0800 [facility] Last Admin: 05/26/18 09:09 Dose: 1 tab Nicotine (Nicoderm Cq) 1 patch TD DAILY [facility] Last Admin: 05/26/18 09:09 Dose: 1 patch Pantoprazole Sodium (Protonix Ec Tab) 40 mg PO 0600 [facility] Last Admin: 05/26/18 05:32 Dose: 40 mg Polysaccharide Iron Complex (Ferrex-150) 150 mg PO DAILY [facility] Last Admin: 05/26/18 09:08 Dose: 150 mg Prednisone (Prednisone Tab) 30 mg PO DAILY [facility] Last Admin: 05/26/18 09:08 Dose: 30 mg Thiamine HCl (Vitamin B1 Tab) 100 mg PO DAILY [facility] Last Admin: 05/26/18 09:08 Dose: 100 mg - Labs Labs: 05/26/18 06:00 05/26/18 06:00 - Constitutional Appears: Well, Non-toxic, No Acute Distress - Head Exam Head Exam: ATRAUMATIC, NORMAL INSPECTION, NORMOCEPHALIC - Eye Exam Eye Exam: EOMI, Normal appearance, PERRL - Respiratory Exam Respiratory Exam: Clear to Ausculation Bilateral, NORMAL BREATHING PATTERN. absent: Accessory Muscle Use, Decreased Breath Sounds, Rales, Rhonchi, Wheezes, Respiratory Distress - Cardiovascular Exam Cardiovascular Exam: RRR, +S1, +S2. absent: Gallop, Rubs, Murmur - GI/Abdominal Exam GI & Abdominal Exam: Soft, Normal Bowel Sounds. absent: Firm, Guarding, Tenderness - Extremities Exam Extremities Exam: Normal Capillary Refill, Normal Inspection. absent: Calf T enderness, Pedal Edema, Tenderness - Back Exam Back Exam: NORMAL INSPECTION. absent: CVA tenderness (L), CVA tenderness (R) - Neurological Exam Neurological Exam: Alert, Awake, Oriented x3 - Psychiatric Exam Psychiatric exam: Normal Affect, Normal Mood - Skin Skin Exam: Dry, Normal Color, Warm Assessment and Plan - Assessment and Plan (Free Text) Assessment: This is a 57 year old female with PMH of anemia, HTN, COPD, alcohol abuse with multiple ED visits for public intoxication presenting to the ED for chest pressure, productive cough with yellow sputum and SOB that began Tuesday. She has been having improving SOB since admission, transitioned from IV to PO zithro and prednisone. Plan: 1. COPD exacerbation - Pt is clinically improved, but is still complaining of SOB and chest tightness, will continue to monitor for resolution tomorrow. - CXR shows increased AP diameter and flattened diaphragm consistent with COPD - duonebs prn and chucky - azithromycin po - day 4 of 5 - solumedrol 40mg po BID - Robitussen DM for cough 2. Hx of alcohol abuse - CIWA currently 0 - seizure precautions - alcohol level of 166 on admission 3. Hx of tobacco use - nicotine patch 4. Hx of HTN - BP currently controlled 5. Hx of anemia - Fe and % saturation is low - B12, folate are both wnl - continue iron tab 6. PPX: GI: protonix DVT: lovenox HHD Patient seen and examined with attending, Dr. Shilpa Parrish DO Internal Medicine Resident PGY-1 <Alton Massey - Last Filed: 05/26/18 13:52> Objective - Vital Signs/Intake and Output Vital Signs (last 24 hours): Temp Pulse Resp BP Pulse Ox 97.1 F L 93 H 19 127/77 97 05/26/18 12:00 05/26/18 12:00 05/26/18 12:00 05/26/18 12:00 05/25/18 06:00 Intake and Output: 05/26/18 05/26/18 06:59 18:59 Intake Total 960 Balance 960 - Medications Medications: Current Medications Acetaminophen (Tylenol 325mg Tab) 650 mg PO Q6H PRN PRN Reason: Pain, Mild (1-3) Last Admin: 05/23/18 15:41 Dose: 650 mg Albuterol/Ipratropium (Duoneb 3 Mg/0.5 Mg (3 Ml) Ud) 3 ml IH Q2H PRN PRN Reason: Shortness of Breath Albuterol/Ipratropium (Duoneb 3 Mg/0.5 Mg (3 Ml) Ud) 3 ml IH [id number] CHUCKY Last Admin: 05/26/18 08:02 Dose: 3 ml Azithromycin (Zithromax) 500 mg PO DAILY [facility] Last Admin: 05/26/18 09:09 Dose: 500 mg Benzocaine/Menthol (Cepacol Sore Throat) 1 magali MT Q2H PRN PRN Reason: Sore Throat Last Admin: 05/25/18 19:12 Dose: 1 magali Enoxaparin Sodium (Lovenox) 40 mg SC DAILY [facility]; Protocol Last Admin: 05/26/18 09:09 Dose: 40 mg Folic Acid (Folic Acid) 1 mg PO DAILY [facility] Last Admin: 05/26/18 09:08 Dose: 1 mg Guaifenesin/Dextromethorphan (Mucinex-Dm 600-30 Mg) 1 tab PO BID [facility] Last Admin: 05/26/18 09:08 Dose: 1 tab Multivitamins (Thera Tab) 1 tab PO 0800 [facility] Last Admin: 05/26/18 09:09 Dose: 1 tab Nicotine (Nicoderm Cq) 1 patch TD DAILY [facility] Last Admin: 05/26/18 09:09 Dose: 1 patch Pantoprazole Sodium (Protonix Ec Tab) 40 mg PO 0600 [facility] Last Admin: 05/26/18 05:32 Dose: 40 mg Polysaccharide Iron Complex (Ferrex-150) 150 mg PO DAILY [facility] Last Admin: 05/26/18 09:08 Dose: 150 mg Prednisone (Prednisone Tab) 30 mg PO DAILY [facility] Last Admin: 05/26/18 09:08 Dose: 30 mg Thiamine HCl (Vitamin B1 Tab) 100 mg PO DAILY [facility] Last Admin: 05/26/18 09:08 Dose: 100 mg - Labs Labs: 05/26/18 06:00 05/26/18 06:00 Attending/Attestation - Attestation I have personally seen and examined this patient.: Yes I have fully participated in the care of the patient.: Yes I have reviewed all pertinent clinical information, including history, physical exam and plan: Yes Notes (Text): Pt seen and examined, she states she has mild tightness with deep inspiration. Not back to her baseline. Will c/w zithromax for one more day and c/w steroid taper. Tentative DC plan tomorrow 05/26/18 13:41
[2018-05-27] MEDS: Albuterol-Ipratrop 3 mg / 0.5 (3 ml) UD IH SCH ×3 (01:42→13:07)
[2018-05-27] MEDS: Pantoprazole 40 mg EC Tab PO SCH (06:19)
[2018-05-27 08:38] LABS: BASO # 0.01 K/mm3 (0.0-2.0); BASO % 0.1 % (0.0-3.0); EOS # 0.1 (0.0-0.7); EOS % 1.4 % (1.5-5.0); GRAN # 5.29 (1.4-6.5); GRAN % 66.6 % (50.0-68.0); LYMPH # 1.9 (1.2-3.4); LYMPH % 23.5 % (22.0-35.0); MEAN CELL VOLUME 100.9 fl (80.0-105.0); MEAN CORPUSCULAR HEMOGLOBIN 32.1 pg (25.0-35.0); MEAN CORPUSCULAR HGB CONC 31.8 g/dl (31.0-37.0); MEAN PLATELET VOLUME 8.5 fl (7.0-11.0); MONO # 0.7 (0.1-0.6); MONO % 8.4 % (1.0-6.0); RBC 3.43 10^6/uL (3.5-6.1); RED CELL DISTRIBUTION WIDTH 14.8 % (11.5-14.5)
[2018-05-27] MEDS: Multivitamin Therapeutic Tab PO SCH (08:38)
[2018-05-27 08:53] LABS: ALB/GLOB RATIO 1.3 (1.1-1.8); ALBUMIN 4.1 g/dL (3.0-4.8); ALT/SGPT 38 U/L (7-56); AST/SGOT 55 U/L (14-36); BLOOD UREA NITROGEN 19 mg/dL (7-21); CALCIUM 9.3 mg/dL (8.4-10.5); GFR NON-AFRICAN AMERICAN > 60
[2018-05-27] MEDS ORDERED: Potassium Chloride 40 mEq/30 ml LIQ UD PO ONE (09:18)
[2018-05-27] MEDS: Enoxaparin 40 mg Syringe SC SCH (09:43)
[2018-05-27] MEDS: Iron Complex Polysacch 150mg Cap PO SCH (09:44)
[2018-05-27] MEDS: guaiFENesin-DM 600-30 mg ER Tab PO SCH (09:44)
[2018-05-27 13:49] VITALS: BP 140/86; PULSE 77; RESP 20; TEMP 99
[2018-05-27 14:27] VITALS: O2SAT 99
--- NOTE | 2018-05-27 19:19 | CP.PCM.DIS ---
Provider - Provider Date of Admission: 05/24/18 13:16 Attending physician: Mary Lou Sotelo DO Primary care physician: Winsoem Mar MD Time Spent in preparation of Discharge (in minutes): 45 Diagnosis - Discharge Diagnosis (1) COPD exacerbation Status: Acute Hospital Course - Lab Results Lab Results: Most Recent Lab Values WBC 8.0 10^3/uL (4.5-11.0) 05/27/18 08:15 RBC 3.43 10^6/uL (3.5-6.1) L 05/27/18 08:15 Hgb 11.0 g/dL (12.0-16.0) L 05/27/18 08:15 Hct 34.6 % (36.0-48.0) L 05/27/18 08:15 MCV 100.9 fl (80.0-105.0) 05/27/18 08:15 MCH 32.1 pg (25.0-35.0) 05/27/18 08:15 MCHC 31.8 g/dl (31.0-37.0) 05/27/18 08:15 RDW 14.8 % (11.5-14.5) H 05/27/18 08:15 Plt Count 369 10^3/uL (120.0-450.0) 05/27/18 08:15 MPV 8.5 fl (7.0-11.0) 05/27/18 08:15 Gran % 66.6 % (50.0-68.0) 05/27/18 08:15 Lymph % (Auto) 23.5 % (22.0-35.0) 05/27/18 08:15 [place] % (Auto) 8.4 % (1.0-6.0) H 05/27/18 08:15 Eos % (Auto) 1.4 % (1.5-5.0) L 05/27/18 08:15 Baso % (Auto) 0.1 % (0.0-3.0) 05/27/18 08:15 Gran # 5.29 (1.4-6.5) 05/27/18 08:15 Lymph # (Auto) 1.9 (1.2-3.4) 05/27/18 08:15 [place] # (Auto) 0.7 (0.1-0.6) H 05/27/18 08:15 Eos # (Auto) 0.1 (0.0-0.7) 05/27/18 08:15 Baso # (Auto) 0.01 K/mm3 (0.0-2.0) 05/27/18 08:15 Neutrophils % (Manual) 88 % (50.0-70.0) H 05/23/18 05:43 Band Neutrophils % 2 % (0-2) 05/23/18 05:43 Lymphocytes % (Manual) 7 % (22.0-35.0) L 05/23/18 05:43 Monocytes % (Manual) 1 % (1.0-6.0) 05/23/18 05:43 Eosinophils % (Manual) 1 % (0.0-3.0) 05/23/18 05:43 Basophils % (Manual) 1 % (0.0-1.0) 05/23/18 05:43 Platelet Evaluation Normal (NORMAL) 05/23/18 05:43 pCO2 38 mm/Hg (35-45) 05/23/18 04:50 pO2 91.0 mm/Hg (80-100) 05/23/18 04:50 HCO3 20.5 mmol/L (21-28) L 05/23/18 04:50 ABG pH 7.34 (7.35-7.45) L 05/23/18 04:50 ABG Total CO2 21.7 mmol.L (22-28) L 05/23/18 04:50 ABG O2 Saturation 98.7 % (95-98) H 05/23/18 04:50 ABG O2 Content 13.7 ML/dl (15-23) L 05/23/18 04:50 ABG Base Excess -4.8 mmol/L (-2.0-3.0) L 05/23/18 04:50 ABG Hemoglobin 10.3 g/dL (11.7-17.4) L 05/23/18 04:50 ABG Carboxyhemoglobin 4.4 % (0.5-1.5) H 05/23/18 04:50 POC ABG HHb (Measured) 1.2 % (0-5) 05/23/18 04:50 ABG Methemoglobin 1.1 % (0.0-3.0) 05/23/18 04:50 ABG O2 Capacity 13.9 mL/dl (16-24) L 05/23/18 04:50 Hgb O2 Saturation 93.4 % (95.0-98.0) L 05/23/18 04:50 FiO2 32.0 % 05/23/18 04:50 Sodium 138 mmol/L (132-148) 05/27/18 08:15 Potassium 3.1 mmol/L (3.6-5.0) L 05/27/18 08:15 Chloride 101 mmol/L (98-107) 05/27/18 08:15 Carbon Dioxide 28 mmol/L (21-33) 05/27/18 08:15 Anion Gap 12 (10-20) 05/27/18 08:15 BUN 19 mg/dL (7-21) 05/27/18 08:15 Creatinine 0.7 mg/dl (0.7-1.2) 05/27/18 08:15 Est GFR ( Amer) > 60 05/27/18 08:15 Est GFR (Non-Af Amer) > 60 05/27/18 08:15 Random Glucose 108 mg/dL (70-110) 05/27/18 08:15 Calcium 9.3 mg/dL (8.4-10.5) 05/27/18 08:15 Phosphorus 2.8 mg/dL (2.5-4.5) 05/23/18 05:43 Magnesium 1.8 mg/dL (1.7-2.2) 05/23/18 05:43 Iron 35 ug/dL (45-180) L 05/23/18 05:43 TIBC 443 ug/dL (265-497) 05/23/18 05:43 % Saturation 8 % (20-55) L 05/23/18 05:43 Ferritin 23.4 ng/mL 05/23/18 05:43 Total Bilirubin 0.3 mg/dL (0.2-1.3) 05/27/18 08:15 AST 55 U/L (14-36) H D 05/27/18 08:15 ALT 38 U/L (7-56) 05/27/18 08:15 Alkaline Phosphatase 54 U/L (38-126) 05/27/18 08:15 Lactate Dehydrogenase 545 U/L (333-699) 05/23/18 00:50 Total Creatine Kinase 161 U/L (35-230) 05/23/18 00:50 Troponin I < 0.01 ng/mL 05/23/18 00:50 NT-Pro-B Natriuret Pep 87.3 pg/mL (0-450) 05/23/18 00:50 Total Protein 7.3 g/dL (5.8-8.3) 05/27/18 08:15 Albumin 4.1 g/dL (3.0-4.8) 05/27/18 08:15 Globulin 3.2 gm/dL 05/27/18 08:15 Albumin/Globulin Ratio 1.3 (1.1-1.8) 05/27/18 08:15 Vitamin B12 328 pg/mL (239-931) 05/23/18 05:43 Folate 10.4 ng/mL 05/23/18 05:43 Urine Opiates Screen Negative (NEGATIVE) 05/23/18 06:19 Urine Methadone Screen Negative (NEGATIVE) 05/23/18 06:19 Ur Barbiturates Screen Negative (NEGATIVE) 05/23/18 06:19 Ur Phencyclidine Scrn Negative (NEGATIVE) 05/23/18 06:19 Ur Amphetamines Screen Negative (NEGATIVE) 05/23/18 06:19 U Benzodiazepines Scrn Negative (NEGATIVE) 05/23/18 06:19 U Oth Cocaine Metabols Negative (NEGATIVE) 05/23/18 06:19 U Cannabinoids Screen Negative (NEGATIVE) 05/23/18 06:19 Alcohol, Quantitative 166 mg/dL (0-10) H 05/23/18 00:50 - Hospital Course Hospital Course: Hospital Course: Pt was admitted from the ED for COPD exacerbation. The pt was monitored clinically daily to assess whether the pt was improving from the treatment given. Today the pt was noted to be clinically much better and having no wheezes in either lung field. The CXR done in the ED showed increased AP diameter and flattened diaphragm consistent with COPD. For the SOB that the pt complaints about, duonebs prn and chucky were placed to help with her breathing as needed. Finally the pt was placed on abx azithromycin po. The pt was able to complete her total course of abx while inside the hospital, and therefor did not need to be sent home on abx. The pt was also placed solumedrol to help with the exacerbation and began initially IV, but then was slowly transitioned to PO steroids in anticipation of d/c. Pt is also given Warrenitussen DM for cough. The pt was noted to have significant improvement with her SOB, and cough with the treatment methods given above. Medical plan for discharge was explained to the pt and the pt expressed understanding and agreement of the medical plan for discharge. The pt was informed to return to the ED if any new symptoms appear or if old symptoms return. Discharge Exam - Head Exam Head Exam: ATRAUMATIC, NORMAL INSPECTION, NORMOCEPHALIC - Eye Exam Eye Exam: EOMI, Normal appearance, PERRL - Respiratory Exam Respiratory Exam: Clear to PA & Lateral, NORMAL BREATHING PATTERN, UNREMARKABLE. absent: Accessory Muscle Use, Rales, Rhonchi, Wheezes, Respiratory Distress, Stridor - Cardiovascular Exam Cardiovascular Exam: REGULAR RHYTHM, RRR. absent: +S1, +S2 - GI/Abdominal Exam GI & Abdominal Exam: Normal Bowel Sounds, Soft, Unremarkable. absent: Tenderness - Back Exam Back exam: NORMAL INSPECTION. absent: CVA tenderness (L), CVA tenderness (R) - Neurological Exam Neurological exam: Alert, Oriented x3 - Psychiatric Exam Psychiatric exam: Normal Affect, Normal Mood - Skin Skin Exam: Dry, Normal Color, Warm Discharge Plan - Discharge Medications Prescriptions: Albuterol Sulfate [Ventolin Hfa] 1 puff IH Q6H PRN #1 inh PRN Reason: Shortness Of Breath Fluticasone/Salmeterol 250/50 [Advair Diskus] 1 puff IH Q12 #1 inh Folic Acid 1 mg PO DAILY #15 tab Iron Polysaccharide [Ferrex-150] 150 mg PO DAILY #15 cap Methylprednisolone [Medrol Dose Pack (21 tabs)] 4 mg PO DAILY #21 mg Multivitamin Therapeutic Tab [Thera Tab] 1 tab PO 0800 #15 tab Nicotine 14 mg/24 hr [Nicoderm CQ] 1 patch TD DAILY #15 patch Thiamine [Vitamin B1 Tab] 100 mg PO DAILY #15 tab - Follow Up Plan Condition: STABLE Disposition: HOME/ ROUTINE Instructions: Heart Healthy Diet, Quitting Smoking, Exacerbation of COPD (DC), Alcohol Withdrawal (DC), Alcohol Abuse and Alcoholism (DC), Effects of Alcohol on Your Health Additional Instructions: Please follow up with your primary medical doctor in 3-5 days. Please refrain from tobacco and alcohol use. You were given prescriptions for: - Medrol dose pack - take as instructed on packet - Advair inhaler 1 puff TWICE per day EVERY day - Ventolin inhaler 1 puff FOUR times per day NEEDED for SHORTNESS OF BREATH - Thiamine 100mg 1 tab ONCE DAILY - Multivitamin 1 tab ONCE DAILY - Ferrex 150mg 1 tab ONCE DAILY - Nicotine patch 1 patch PER DAY If your symptoms return, please go to the nearest emergency department. Diet: Heart Healthy Diet Patient states she always refuses the flu and the pneumococcal vaccines and continues to refuse. Referrals: Winsome Mar MD [Primary Care Provider] -
== END 2018-05-27 16:01 | disposition home or self-care (01) | DRG 140 ==
LOC: ED 23:40 → ERH 05-23 02:31 → 2RNO 05-23 09:52 → OBSVTOIN 05-24 13:16
PROVIDERS: ADMIT Internal Medicine; ATTEND Hospitalist
DX: J44.1 Chronic obstructive pulmonary disease with (acute) exacerbation (principal); I10 Essential (primary) hypertension; F10.10 Alcohol abuse, uncomplicated; F17.200 Nicotine dependence, unspecified, uncomplicated; D64.9 Anemia, unspecified

== ENCOUNTER 2018-06-13 14:24 | Emergency (ER) | payer MEDICAID ==
[2018-06-13 14:26] VITALS: BMI 20.7
[2018-06-13 14:39] VITALS: BP 132/85; PULSE 86; RESP 18; TEMP 97.8; O2SAT 98
--- NOTE | 2018-06-13 14:57 | ED PDOC ---
Arrival/HPI - General Chief Complaint: Alcohol Ingestion Historian: EMS EM Caveat: Intoxicated - History of Present Illness Narrative History of Present Illness (Text): 06/13/18 15:20 A 57 year old female, whose past medical history includes EtOH abuse, by EMS for intoxication. Patient was found by passerby in the street intoxicated. The HPI is limited due to patient being intoxicated, combative, and uncooperati ve in offering further information. No PMD Time/Duration: Prior to Arrival Symptom Onset: Sudden Symptom Course: Unchanged Activities at Onset: Rest Context: Street Past Medical History - Provider Review Nursing Documentation Reviewed: Yes - Travel History Have you recently traveled outside [place] w/in the past 3 mons?: No - Infectious Disease Hx of Infectious Diseases: None - Tetanus Immunization Tetanus Immunization: Unknown - Past Medical History Past Medical History: No Previous - Cardiac Hx Cardiac Disorders: Yes Hx Hypertension: Yes - Pulmonary Hx Respiratory Disorders: Yes Hx Chronic Obstructive Pulmonary Disease (COPD): Yes - Neurological Hx Neurological Disorder: No - HEENT Hx HEENT Disorder: No - Renal Hx Renal Disorder: No - Endocrine/Metabolic Hx Endocrine Disorders: No - Hematological/Oncological Hx Blood Disorders: Yes Hx Anemia: Yes - Integumentary Hx Dermatological Disorder: No - Musculoskeletal/Rheumatological Hx Musculoskeletal Disorders: No Hx Falls: No - Gastrointestinal Hx Gastrointestinal Disorders: No - Genitourinary/Gynecological Hx Genitourinary Disorders: No - Psychiatric Hx Psychophysiologic Disorder: No Hx Substance Use: No - Past Surgical History Past Surgical History: Unable to Obtain - Surgical History Hx Section: Yes - Anesthesia Hx Anesthesia: Yes Hx Anesthesia Reactions: No Hx Malignant Hyperthermia: No - Suicidal Assessment Feels Threatened In Home Enviroment: No Family/Social History - Physician Review Nursing Documentation Reviewed: Yes Family/Social History: Unknown Family HX Smoking Status: Current Some Days Smoker Hx Alcohol Use: Yes (admits to drinking jus t [employer]) Hx Substance Use: No Hx Substance Use Treatment: No Allergies/Home Meds Allergies/Adverse Reactions: Allergies Antihistamines - Alkylamine Allergy (Verified 05/22/18 23:48) RASH Review of Systems - Review of Systems Systems not reviewed;Unavailable: Intoxicated Physical Exam - Physical Exam Physical Exam Limitations: Uncooperative Vital Signs Reviewed: Yes Vital Signs Temp Pulse Resp BP Pulse Ox 06/13/18 14:24 97.8 F 86 18 132/85 98 Temperature: Afebrile Blood Pressure: Normal Pulse: Regular Respiratory Rate: Normal Appearance: Positive for: Other (intoxicated and combative, uncooperative.) Pain Distress: None Mental Status: Positive for: Alert and Oriented X 3 - Systems Exam Head: Present: Atraumatic, Normocephalic Conjunctiva: Present: Injected Mouth: Present: Dry Psychiatric: Present: Alert Medical Decision Making ED Course and Treatment: 06/13/18 15:31 Impression: 57 year old female brought in for intoxication. Plan: -- Cervical Spinal CT -- Head CT -- Labs -- Reassess and disposition Progress Notes: 06/13/18 15:32 Patient eloped from ER. - Scribe Statement The provider has reviewed the documentation as recorded by the Scribe Marty Pastor Provider Scribe Attestation: All medical record entries made by the Scribe were at my direction and personally dictated by me. I have reviewed the chart and agree that the record accurately reflects my personal performance of the history, physical exam, medical decision making, and the department course for this patient. I have also personally directed, reviewed, and agree with the discharge instructions and disposition. Disposition/Present on Arrival - Present on Arrival Any Indicators Present on Arrival: No History of DVT/PE: No History of Uncontrolled Diabetes: No Urinary Catheter: No History of Decub. Ulcer: No History Surgical Site Infection Following: Orthopedic Procedures - Disposition Have Diagnosis and Disposition been Completed?: Yes Diagnosis: Alcohol abuse Disposition: ELOPEMENT - ER ONLY Disposition Time: 15:30 Condition: FAIR Discharge Instructions (ExitCare): Alcohol Abuse and Alcoholism (DC) Print Language: LUXEMBOURGER Additional Instructions: All medical record entries made by the Scribe were at my direction and personally dictated by me. I have reviewed the chart and agree that the record accurately reflects my personal performance of the history, physical exam, medical decision making, and the department course for this patient. I have also personally directed, reviewed, and agree with the discharge instructions and disposition. Referrals: [facility] at [facility] [place] [Outside] - Follow up with primary Sola Gonsalez MD [Medical Doctor] - Follow up with primary Forms: [employer] (Telugu)
== END 2018-06-13 15:45 | disposition home or self-care (01) ==
LOC: ED 14:24
DX: F10.10 Alcohol abuse, uncomplicated (principal); I10 Essential (primary) hypertension; F17.210 Nicotine dependence, cigarettes, uncomplicated

== ENCOUNTER 2018-06-28 20:55 | Inpatient (IN) | payer MEDICAID ==
[2018-06-28 21:04] VITALS: BMI 18.5
--- NOTE | 2018-06-28 21:05 | ED PDOC ---
Arrival/HPI - General Time Seen by Provider: 06/28/18 21:01 Historian: Patient - History of Present Illness Narrative History of Present Illness (Text): 06/28/18 21:05 Yasmin Kent is a 57 year old female, whose past medical history includes anemia, hypertension, COPD, and alcohol abuse, who presents to the Emergency department complaining of shortness of breath. Patient states she has been experiencing shortness of breath and chest tightness tonight, consistent with previous episodes of COPD. Patient states she has been using her inhalers at home with no significant relief. Patient denies any fever, chills, nausea, vomiting, diarrhea, urinary symptoms, back pain, neck pain, headache, dizziness, or any other complaints. Symptom Onset: Gradual Symptom Course: Unchanged Activities at Onset: Light Context: Home Past Medical History - Provider Review Nursing Documentation Reviewed: Yes - Infectious Disease Hx of Infectious Diseases: None - Tetanus Immunization Tetanus Immunization: Unknown - Past Medical History Past Medical History: No Previous - Cardiac Hx Cardiac Disorders: Yes Hx Hypertension: Yes - Pulmonary Hx Respiratory Disorders: Yes Hx Chronic Obstructive Pulmonary Disease (COPD): Yes - Neurological Hx Neurological Disorder: No - HEENT Hx HEENT Disorder: No - Renal Hx Renal Disorder: No - Endocrine/Metabolic Hx Endocrine Disorders: No - Hematological/Oncological Hx Blood Disorders: Yes Hx Anemia: Yes - Integumentary Hx Dermatological Disorder: No - Musculoskeletal/Rheumatological Hx Musculoskeletal Disorders: No Hx Falls: No - Gastrointestinal Hx Gastrointestinal Disorders: No - Genitourinary/Gynecological Hx Genitourinary Disorders: No - Psychiatric Hx Psychophysiologic Disorder: No Hx Substance Use: No - Past Surgical History Past Surgical History: Unable to Obtain - Surgical History Hx Section: Yes - Anesthesia Hx Anesthesia: Yes Hx Anesthesia Reactions: No Hx Malignant Hyperthermia: No - Suicidal Assessment Feels Threatened In Home Enviroment: No Family/Social History - Physician Review Nursing Documentation Reviewed: Yes Family/Social History: Unknown Family HX Smoking Status: Current Some Days Smoker Hx Alcohol Use: Yes (admits to drinking jus t [employer]) Hx Substance Use: No Hx Substance Use Treatment: No Allergies/Home Meds Allergies/Adverse Reactions: Allergies Antihistamines - Alkylamine Allergy (Unknown, Verified 06/29/18 05:19) RASH patient states an MD told her after an allergy test that she was allergic to antihistamine. She states that she never had a drug reaction Review of Systems - Physician Review All systems were reviewed & negative as marked: Yes - Review of Systems Constitutional: Normal. absent: Fevers Eyes: Normal ENT: Normal Respiratory: SOB Cardiovascular: Chest Pain Gastrointestinal: Normal. absent: Abdominal Pain, Diarrhea, Nausea, Vomiting Genitourinary Female: Normal. absent: Dysuria, Frequency, Hematuria, Urine Output Changes Musculoskeletal: Normal. absent: Back Pain, Neck Pain Skin: Normal. absent: Rash Neurological: Normal. absent: Headache, Dizziness Endocrine: Normal Hemo/Lymphatic: Normal Psychiatric: Normal Physical Exam Vital Signs Reviewed: Yes Temperature: Afebrile Blood Pressure: Normal Pulse: Regular Respiratory Rate: Normal Appearance: Positive for: Well-Appearing, Non-Toxic, Comfortable Pain Distress: None Mental Status: Positive for: Alert and Oriented X 3 - Systems Exam Head: Present: Atraumatic, Normocephalic Pupils: Present: PERRL Extroacular Muscles: Present: EOMI Conjunctiva: Present: Normal Mouth: Present: Moist Mucous Membranes Neck: Present: Normal Range of Motion Respiratory/Chest: Present: Wheezes (Wheezing bilaterally). No: Respiratory Distress, Accessory Muscle Use Cardiovascular: Present: Regular Rate and Rhythm, Normal S1, S2. No: Murmurs Abdomen: No: Tenderness, Distention, Peritoneal Signs Back: Present: Normal Inspection Upper Extremity: Present: Normal Inspection. No: Cyanosis, Edema Lower Extremity: Present: Normal Inspection. No: Edema Neurological: Present: GCS=15, CN II-XII Intact, Speech Normal Skin: Present: Warm, Dry, Normal Color. No: Rashes Psychiatric: Present: Alert, Oriented x 3, Normal Insight, Normal Concentration Medical Decision Making ED Course and Treatment: 06/28/18 21:05 Impression: 57 year old female complaining of shortness of breath and chest tightness/ Plan: -- EKG -- Chest X-ray -- Rapid influenza -- Labs, cardiac enzymes, BNP -- Duoneb -- Solu-medrol -- Reassess and disposition Prior Visits: Notes and results from previous visits were reviewed. Progress Notes: Reviewed EKG, NSR at 95 bpm[address] Non-specific ST/T wave changes. 06/28/18 21:48 Chest X-ray reviewed, shows hyper-inflated lung levin, otherwise no acute processes. 06/28/18 23:26 Case discussed with medical observer exhibition designer, who is aware and agrees with plan. 06/28/18 23:[address] Zhou, who is aware and agrees with plan. Accepts pt in to hospitalist service. Pt will go to [facility] observation for COPD exacerbation. - Lab Interpretations I have reviewed the lab results: Yes - RAD Interpretation Helicopter Dispatcher: ED Physician - EKG Interpretation Interpreted by ED Physician: Yes Type: 12 lead EKG - Scribe Statement The provider has reviewed the documentation as recorded by the Tg Son Provider Scribe Attestation: All medical record entries made by the Meganibole were at my direction and personally dictated by me. I have reviewed the chart and agree that the record accurately reflects my personal performance of the history, physical exam, medical decision making, and the department course for this patient. I have also personally directed, reviewed, and agree with the discharge instructions and disposition. Disposition/Present on Arrival - Present on Arrival Any Indicators Present on Arrival: No History of DVT/PE: No History of Uncontrolled Diabetes: No Urinary Catheter: No History of Decub. Ulcer: No History Surgical Site Infection Following: Orthopedic Procedures - Disposition Have Diagnosis and Disposition been Completed?: Yes Diagnosis: COPD exacerbation Disposition: HOSPITALIZED Disposition Time: 23:35 Condition: STABLE
[2018-06-28] MEDS ORDERED: Albuterol-Ipratrop 3 mg / 0.5 (3 ml) UD IH STA ×3 (21:06→23:09)
[2018-06-28 21:46] LABS: ALB/GLOB RATIO 1.3 (1.1-1.8); ALBUMIN 4.3 g/dL (3.0-4.8); ALT/SGPT 26 U/L (7-56); AST/SGOT 35 U/L (14-36); BLOOD UREA NITROGEN 19 mg/dL (7-21); CALCIUM 9.3 mg/dL (8.4-10.5); GFR NON-AFRICAN AMERICAN > 60; HEMOGLOBIN 10.3 g/dL (12.0-16.0); MEAN PLATELET VOLUME 8.5 fl (7.0-11.0); RBC 3.32 10^6/uL (3.5-6.1); RED CELL DISTRIBUTION WIDTH 15.1 % (11.5-14.5); WHITE BLOOD COUNT 8.3 10^3/uL (4.5-11.0)
[2018-06-28 21:58] LABS: INR 0.95; PARTIAL THROMBOPLASTIN TIME 28.5 Seconds (25.1-36.5); PROTHROMBIN TIME 10.8 SECONDS (9.4-12.5)
[2018-06-28 21:59] LABS: B-TYPE NATRIURETIC PEPTIDE 36.6 pg/mL (0-450); TROPONIN I < 0.01 ng/mL
[2018-06-29] MEDS ORDERED: Albuterol-Ipratrop 3 mg / 0.5 (3 ml) UD IH PRN ×2 (01:33→12:58)
[2018-06-29] MEDS ORDERED: Budesonide 0.25 mg/2 ml Inhal Susp UD IH SCH (01:34)
[2018-06-29] MEDS ORDERED: Azithromycin 250 MG in Sodium Chloride 0.9% 250 ML IVPB SCH (01:35)
[2018-06-29] MEDS ORDERED: Budesonide 0.5 mg/2 ml Inhal Susp UD IH SCH (01:45)
[2018-06-29] MEDS ORDERED: Arformoterol 15 mcg/2 ml Inh Sol IH SCH ×2 (01:45→08:00)
--- NOTE | 2018-06-29 01:47 | CP.PCM.HP ---
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 She reported SOB and chest tightness this evening w/some episodes of nausea/vomiting (NBNB) as well as stomach pain. She also reported some sore throat and mild cough as well. She reports she takes pulmicort at home as well as inhaler at home. She reported no significant improvement w/ use of her inhaler. Of note patient does report she drinks alcohol and had one drink earlier in the day prior to coming to ED. She reports that she has never had seizure 2/2 withdrawal; denies any s/s of withdrawal and does not undergo withdrawal if she does not drink. Of note she denies sick contacts, reports compliance w/ rx, however reports she still smokes daily. Denies fevers/chills, chest pain, palpitations, abd pain, remainder 12 system ROS otherwise negative. PMD: Dr. Winsome Mar Pharmacy: [facility] Meds: unknown to patient; PMH: anemia, HTN, COPD, alcohol abuse SH: Daily EtOH 1-2 beers, 80 pack year smoking hx, no illicit drug use Sx: 2 x 30 years ago FH: denies All: antihistimines Present on Admission - Present on Admission Any Indicators Present on Admission: No Review of Systems - Review of Systems All systems: reviewed and no additional remarkable complaints except Review of Systems: as per HPI Past Patient History - Infectious Disease Hx of Infectious Diseases: None - Tetanus Immunizations Tetanus Immunization: Unknown - Past Social History Smoking Status: Current Some Days Smoker - CARDIAC Hx Cardiac Disorders: Yes Hx Angina: Yes Hx Hypertension: Yes - PULMONARY Hx Respiratory Disorders: Yes Hx Bronchitis: Yes Hx Chronic Obstructive Pulmonary Disease (COPD): Yes - NEUROLOGICAL Hx Neurological Disorder: No - HEENT Hx HEENT Problems: Yes Hx Cataracts: Yes (sx ou) - RENAL Hx Chronic Kidney Disease: No - ENDOCRINE/METABOLIC Hx Endocrine Disorders: No - HEMATOLOGICAL/ONCOLOGICAL Hx Blood Disorders: Yes Hx Anemia: Yes - INTEGUMENTARY Hx Dermatological Problems: No - MUSCULOSKELETAL/RHEUMATOLOGICAL Hx Musculoskeletal Disorders: No Hx Arthritis: Yes Hx Back Pain: Yes Hx Falls: No Hx Fractures: Yes (fx L 2-3-4 fx R wrist) - GASTROINTESTINAL Hx Gastrointestinal Disorders: No - GENITOURINARY/GYNECOLOGICAL Hx Genitourinary Disorders: No - PSYCHIATRIC Hx Psychophysiologic Disorder: No Hx Anxiety: Yes - SURGICAL HISTORY Hx Surgeries: Yes ( x2) - ANESTHESIA Hx Anesthesia: Yes Hx Anesthesia Reactions: No Hx Malignant Hyperthermia: No Meds Allergies/Adverse Reactions: Allergies Allergy/AdvReac Type Severity Reaction Status Date / Time Antihistamines - Alkylamine Allergy Unknown RASH Verified 06/29/18 05:19 Physical Exam - Constitutional Appears: Well, Non-toxic, No Acute Distress - Head Exam Head Exam: ATRAUMATIC, NORMOCEPHALIC - Eye Exam Eye Exam: EOMI, Normal appearance, PERRL. absent: Scleral icterus - ENT Exam ENT Exam: Mucous Membranes Moist Additional comments: Poor dentition - Respiratory Exam Respiratory Exam: Decreased Breath Sounds, Prolonged Expiratory Phase, Wheezes - Cardiovascular Exam Cardiovascular Exam: Tachycardia, +S1, +S2 - GI/Abdominal Exam GI & Abdominal Exam: Normal Bowel Sounds, Soft. absent: Tenderness - Extremities Exam Extremities exam: Positive for: pedal pulses present. Negative for: tenderness - Neurological Exam Neurological exam: Alert, Oriented x3 Additional comments: No astrexis noted No tremor noted - Psychiatric Exam Psychiatric exam: Normal Affect, Normal Mood - Skin Skin Exam: Dry, Intact, Normal Color, Warm Results - Vital Signs Recent Vital Signs: Last Vital Signs Temp 98.7 F 06/28/18 21:04 Pulse 89 06/28/18 22:21 Resp 22 06/28/18 22:21 BP 113/66 06/28/18 22:21 Pulse Ox 96 06/28/18 22:21 - Labs Result Diagrams: 06/28/18 21:25 06/28/18 21:25 Labs: Laboratory Results - last 24 hr 06/28/18 06/28/18 06/28/18 21:00 21:05 21:25 WBC RBC Hgb Hct MCV MCH MCHC RDW Plt Count MPV PT 10.8 INR 0.95 APTT 28.5 Sodium Potassium Chloride Carbon Dioxide Anion Gap BUN Creatinine Est GFR ( Amer) Est GFR (Non-Af Amer) Random Glucose Calcium Total Bilirubin AST ALT Alkaline Phosphatase Lactate Dehydrogenase Total Creatine Kinase Troponin I NT-Pro-B Natriuret Pep Total Protein Albumin Globulin Albumin/Globulin Ratio Alcohol, Quantitative 21 H Influenza Typ A,B (EIA) Negative for flu a/b 06/28/18 06/28/18 21:25 21:25 WBC 8.3 RBC 3.32 L Hgb 10.3 L Hct 32.2 L MCV 97.0 D MCH 31.0 MCHC 32.0 RDW 15.1 H Plt Count 320 MPV 8.5 PT INR APTT Sodium 134 Potassium 4.2 Chloride 98 Carbon Dioxide 24 Anion Gap 16 BUN 19 Creatinine 0.9 Est GFR ( Amer) > 60 Est GFR (Non-Af Amer) > 60 Random Glucose 93 Calcium 9.3 Total Bilirubin 0.2 AST 35 ALT 26 Alkaline Phosphatase 75 Lactate Dehydrogenase 477 Total Creatine Kinase 120 Troponin I < 0.01 NT-Pro-B Natriuret Pep 36.6 Total Protein 7.6 Albumin 4.3 Globulin 3.4 Albumin/Globulin Ratio 1.3 Alcohol, Quantitative Influenza Typ A,B (EIA) Assessment & Plan - Assessment and Plan (Free Text) Assessment: 57F w/ past medical history includes anemia, hypertension, COPD (not on home O2), and alcohol abuse; presented to [facility] [place] on 06/29 for SOB. Patient admitted for COPD Exacerbation Plan: COPD Exacerbation most likely 2/2 Group B Strep Pharyngitis vs Smoking Saturating well on 2L NC 06/28 - CXR shows no significant infiltrate, hyper inflated lungs, Rapid Flu Negative; Group B Strep Positive Duoneb Q6 chucky / Q4 PRN Start Doxy 100 Q12 Start Solumedrol 40 Q8 C/w Pulmicort Q12 Hold Home Advair Nicotine Patch Hx EtOH Abuse EtOH Level 21; No S/S withdrawal on presentation Thiamine Folic Multivit Hx HTN Normotensive at this time; no home anti HTN on file; Reassess as necessary Hx Fe Def Anemia c/w Fe PO supplement PPX: Lovenox Protonix Patient was seen, examined, and discussed w/ attending physician Dr. 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 - Date & Time Date: 06/29/18 Time: 04:58 <Jae Zhou - Last Filed: 06/29/18 06:03> Results - Vital Signs Recent Vital Signs: Last Vital Signs Temp 97.5 F L 06/29/18 01:30 Pulse 90 06/29/18 02:09 Resp 20 06/29/18 01:31 BP 108/70 06/29/18 01:30 Pulse Ox 94 L 06/29/18 01:30 - Labs Result Diagrams: 06/28/18 21:25 06/28/18 21:25 Labs: Laboratory Results - last 24 hr 06/28/18 06/28/18 06/28/18 21:00 21:05 21:12 WBC RBC Hgb Hct MCV MCH MCHC RDW Plt Count MPV PT INR APTT Sodium Potassium Chloride Carbon Dioxide Anion Gap BUN Creatinine Est GFR ( Amer) Est GFR (Non-Af Amer) Random Glucose Calcium Total Bilirubin AST ALT Alkaline Phosphatase Lactate Dehydrogenase Total Creatine Kinase Troponin I NT-Pro-B Natriuret Pep Total Protein Albumin Globulin Albumin/Globulin Ratio Alcohol, Quantitative 21 H Influenza Typ A,B (EIA) Negative for flu a/b Grp A Beta Strep Ag Positive H 06/28/18 06/28/18 06/28/18 21:25 21:25 21:25 WBC 8.3 RBC 3.32 L Hgb 10.3 L Hct 32.2 L MCV 97.0 D MCH 31.0 MCHC 32.0 RDW 15.1 H Plt Count 320 MPV 8.5 PT 10.8 INR 0.95 APTT 28.5 Sodium 134 Potassium 4.2 Chloride 98 Carbon Dioxide 24 Anion Gap 16 BUN 19 Creatinine 0.9 Est GFR ( Amer) > 60 Est GFR (Non-Af Amer) > 60 Random Glucose 93 Calcium 9.3 Total Bilirubin 0.2 AST 35 ALT 26 Alkaline Phosphatase 75 Lactate Dehydrogenase 477 Total Creatine Kinase 120 Troponin I < 0.01 NT-Pro-B Natriuret Pep 36.6 Total Protein 7.6 Albumin 4.3 Globulin 3.4 Albumin/Globulin Ratio 1.3 Alcohol, Quantitative Influenza Typ A,B (EIA) Grp A Beta Strep Ag Attending/Attestation - Attestation I have personally seen and examined this patient.: Yes I have fully participated in the care of the patient.: Yes I have reviewed all pertinent clinical information: Yes
[2018-06-29] MEDS: Albuterol-Ipratrop 3 mg / 0.5 (3 ml) UD IH SCH ×5 (02:08→23:36)
[2018-06-29] MEDS ORDERED: Influenza Vaccine 60 mcg/0.5 mL SYR (4YR UP) IM ONE (03:05)
[2018-06-29] MEDS ORDERED: Pneumococcal 23-Valent Vaccine IM ONE (03:05)
[2018-06-29] MEDS ORDERED: MethylPREDNISolone 40 mg Vial IVP SCH (06:00)
[2018-06-29] MEDS: Pantoprazole 40 mg EC Tab PO SCH (06:08)
[2018-06-29] MEDS: MethylPREDNISolone 40 mg Vial IVP SCH ×3 (06:09→21:08)
[2018-06-29 07:05] LABS: BASO # 0.01 K/mm3 (0.0-2.0); BASO % 0.1 % (0.0-3.0); GRAN # 8.09 (1.4-6.5); GRAN % 92.7 % (50.0-68.0); HEMOGLOBIN 10.4 g/dL (12.0-16.0); LYMPH # 0.5 (1.2-3.4); LYMPH % 5.6 % (22.0-35.0); MEAN CELL VOLUME 97.3 fl (80.0-105.0); MEAN CORPUSCULAR HGB CONC 31.9 g/dl (31.0-37.0); MEAN PLATELET VOLUME 8.8 fl (7.0-11.0); MONO # 0.1 (0.1-0.6); MONO % 1.6 % (1.0-6.0); PLATELET COUNT 314 10^3/uL (120.0-450.0); RBC 3.35 10^6/uL (3.5-6.1); RED CELL DISTRIBUTION WIDTH 15.3 % (11.5-14.5); WHITE BLOOD COUNT 8.7 10^3/uL (4.5-11.0)
[2018-06-29 07:13] LABS: ALB/GLOB RATIO 1.2 (1.1-1.8); ALBUMIN 4.3 g/dL (3.0-4.8); ALT/SGPT 28 U/L (7-56); AST/SGOT 36 U/L (14-36); BLOOD UREA NITROGEN 19 mg/dL (7-21); CALCIUM 9.6 mg/dL (8.4-10.5); GFR NON-AFRICAN AMERICAN > 60
--- NOTE | 2018-06-29 07:54 | RAD ---
Date of service: 06/28/2018 HISTORY: sob COMPARISON: Chest radiographs 05/23/2018. FINDINGS: LUNGS: No active pulmonary disease. PLEURA: No significant pleural effusion identified, no pneumothorax apparent. CARDIOVASCULAR: No aortic atherosclerotic calcification present. Normal cardiac size. No pulmonary vascular congestion. OSSEOUS STRUCTURES: No significant abnormalities. VISUALIZED UPPER ABDOMEN: Normal. OTHER FINDINGS: None. IMPRESSION: No interval acute cardiopulmonary disease appreciated.
[2018-06-29 08:14] LABS: ATYPICAL LYMPHOCYTE 2 % (0.0-0.0); BAND 3 % (0-2); BASOPHIL 2 % (0.0-1.0); LYMPHOCYTE 2 % (22.0-35.0); MONOCYTE 0 % (1.0-6.0); NEUTROPHIL 91 % (50.0-70.0)
[2018-06-29 08:15] LABS: PLATELET ESTIMATE NORMAL (NORMAL)
[2018-06-29] MEDS: Multivitamin Therapeutic Tab PO SCH (09:45)
[2018-06-29] MEDS: Iron Complex Polysacch 150mg Cap PO SCH (09:45)
[2018-06-29] MEDS: Enoxaparin 40 mg Syringe SC SCH (09:45)
[2018-06-29] MEDS: cefTRIAXone 1 gm 1 GM/100 ML BAG IVPB SCH (09:47)
[2018-06-29] MEDS: Azithromycin 250 MG in Sodium Chloride 0.9% 250 ML IVPB SCH (14:52)
[2018-06-29] MEDS: guaiFENesin 100 mg/5 ml Syrup UD PO PRN (15:35)
--- NOTE | 2018-06-29 20:29 | CARD ---
APPROVED REPORT Date of service: 06/28/2018 EKG Measurement Heart [id number] <Conclusion> Normal sinus rhythm Biatrial enlargement Pulmonary disease pattern Abnormal ECG
[2018-06-29] MEDS: Benzocaine/Menthol (Cepacol) Lozenge MT PRN (21:15)
[2018-06-30] MEDS: Albuterol-Ipratrop 3 mg / 0.5 (3 ml) UD IH SCH ×5 (04:00→20:02)
[2018-06-30] MEDS: MethylPREDNISolone 40 mg Vial IVP SCH ×3 (05:38→22:26)
[2018-06-30] MEDS: Pantoprazole 40 mg EC Tab PO SCH (05:38)
[2018-06-30 06:44] LABS: BASO # 0.01 K/mm3 (0.0-2.0); BASO % 0.1 % (0.0-3.0); GRAN # 14.29 (1.4-6.5); GRAN % 88.8 % (50.0-68.0); HEMOGLOBIN 10.6 g/dL (12.0-16.0); LYMPH # 0.7 (1.2-3.4); LYMPH % 4.2 % (22.0-35.0); MEAN CELL VOLUME 97.9 fl (80.0-105.0); MEAN CORPUSCULAR HEMOGLOBIN 31.3 pg (25.0-35.0); MEAN CORPUSCULAR HGB CONC 31.9 g/dl (31.0-37.0); MEAN PLATELET VOLUME 8.8 fl (7.0-11.0); MONO # 1.1 (0.1-0.6); MONO % 6.9 % (1.0-6.0); RBC 3.39 10^6/uL (3.5-6.1); WHITE BLOOD COUNT 16.1 10^3/uL (4.5-11.0)
[2018-06-30] MEDS: guaiFENesin 100 mg/5 ml Syrup UD PO PRN (07:04)
[2018-06-30 07:18] LABS: ALB/GLOB RATIO 1.2 (1.1-1.8); ALBUMIN 4.1 g/dL (3.0-4.8); ALT/SGPT 18 U/L (7-56); AST/SGOT 33 U/L (14-36); BLOOD UREA NITROGEN 16 mg/dL (7-21); CALCIUM 9.7 mg/dL (8.4-10.5); GFR NON-AFRICAN AMERICAN > 60
[2018-06-30] MEDS: Enoxaparin 40 mg Syringe SC SCH (09:00)
[2018-06-30] MEDS: Multivitamin Therapeutic Tab PO SCH (09:00)
[2018-06-30] MEDS: Iron Complex Polysacch 150mg Cap PO SCH (09:00)
[2018-06-30] MEDS: cefTRIAXone 1 gm 1 GM/100 ML BAG IVPB SCH (09:01)
[2018-06-30] MEDS: Azithromycin 250 MG in Sodium Chloride 0.9% 250 ML IVPB SCH (09:44)
[2018-06-30] MEDS ORDERED: Sodium Chloride 0.9% 20 ML IV ONE (13:22)
--- NOTE | 2018-06-30 15:16 | CP.PCM.PN ---
<Jamel Ibrahim - Last Filed: 06/30/18 15:29> Subjective - Date & Time of Evaluation Date of Evaluation: 06/30/18 Time of Evaluation: 07:00 - Subjective Subjective: Pt seen and examined. Admits to phlegm production and cough with some associated SOB and headache Objective - Vital Signs/Intake and Output Vital Signs (last 24 hours): Temp Pulse Resp BP Pulse Ox 98.1 F 80 20 122/77 96 06/30/18 06:00 06/30/18 06:00 06/30/18 06:00 06/30/18 06:00 06/30/18 06:00 - Medications Medications: Current Medications Acetaminophen (Tylenol 325mg Tab) 650 mg PO Q6H PRN PRN Reason: Headache Last Admin: 06/30/18 13:40 Dose: 650 mg Albuterol/Ipratropium (Duoneb 3 Mg/0.5 Mg (3 Ml) Ud) 3 ml IH Q4 ALBA Last Admin: 06/30/18 11:28 Dose: 3 ml Albuterol/Ipratropium (Duoneb 3 Mg/0.5 Mg (3 Ml) Ud) 3 ml IH Q2H PRN PRN Reason: Shortness of Breath Benzocaine/Menthol (Cepacol Sore Throat) 1 magali MT Q2H PRN PRN Reason: Sore Throat Last Admin: 06/29/18 21:15 Dose: 1 magali Budesonide (Pulmicort Respules) 0.5 mg IH [id number] ALBA Enoxaparin Sodium (Lovenox) 40 mg SC DAILY ALBA; Protocol Last Admin: 06/30/18 09:00 Dose: 40 mg Folic Acid (Folic Acid) 1 mg PO DAILY ALBA Last Admin: 06/30/18 09:00 Dose: 1 mg Guaifenesin (Robitussin) 100 mg PO Q4H ALBA Ceftriaxone Sodium (Rocephin 1 Gram Ivpb) 1 gm in 100 mls @ 100 mls/hr IVPB DAILY ALBA; Protocol Last Admin: 06/30/18 09:01 Dose: 100 mls/hr Azithromycin 250 mg/ Sodium (Chloride) 250 mls @ 167 mls/hr IVPB DAILY ALBA; Protocol Last Admin: 06/30/18 09:44 Dose: 167 mls/hr Ibuprofen (Motrin Tab) 600 mg PO Q6H PRN PRN Reason: Pain, moderate (4-7) Lorazepam (Ativan) 1 mg IVP Q6H PRN; Protocol PRN Reason: Seizure activity Last Admin: 06/30/18 08:58 Dose: 1 mg Methylprednisolone (Solu-Medrol) 40 mg IVP Q8 [facility] Last Admin: 06/30/18 13:44 Dose: 40 mg Multivitamins (Thera Tab) 1 tab PO 0800 [facility] Last Admin: 06/30/18 09:00 Dose: 1 tab Nicotine (Nicoderm Cq) 1 patch TD DAILY [facility] Last Admin: 06/30/18 09:01 Dose: 1 patch Pantoprazole Sodium (Protonix Ec Tab) 40 mg PO 0600 [facility] Last Admin: 06/30/18 05:38 Dose: 40 mg Polysaccharide Iron Complex (Ferrex-150) 150 mg PO DAILY [facility] Last Admin: 06/30/18 09:00 Dose: 150 mg Thiamine HCl (Vitamin B1 Tab) 100 mg PO DAILY [facility] Last Admin: 06/30/18 09:00 Dose: 100 mg - Labs Labs: 06/30/18 06:00 06/30/18 06:00 PT 10.8 SECONDS (9.4-12.5) 06/28/18 21:25 INR 0.95 06/28/18 21:25 APTT 28.5 Seconds (25.1-36.5) 06/28/18 21:25 - Constitutional Appears: No Acute Distress - Head Exam Head Exam: ATRAUMATIC, NORMOCEPHALIC - Eye Exam Eye Exam: EOMI - ENT Exam ENT Exam: Mucous Membranes Moist Additional comments: white exudates in posterior pharynx - Neck Exam Neck Exam: Full ROM - Respiratory Exam Respiratory Exam: Rhonchi, Wheezes. absent: Accessory Muscle Use, Respiratory Distress - Cardiovascular Exam Cardiovascular Exam: RRR, +S1, +S2. absent: Diastolic murmur, Murmur - GI/Abdominal Exam GI & Abdominal Exam: Soft, Normal Bowel Sounds - Extremities Exam Extremities Exam: Full ROM. absent: Pedal Edema - Neurological Exam Neurological Exam: Alert, Awake, Oriented x3 - Psychiatric Exam Psychiatric exam: Normal Affect, Normal Mood - Skin Skin Exam: Dry, Intact, Warm Assessment and Plan - Assessment and Plan (Free Text) Assessment: Pt is a 57 yo female with a PMH of anemia, hypertension, COPD (not on home O2), and alcohol abuse; [place] [facility] [place] for SOB. Plan: Group A Strep Pharyngitis - Group A Strep Positive - worsened by COPD history - afebrile, no tachycarida - O2 2L NC - Duoneb ALBA and PRN - Pulmicort Q12 - guaifenesin 100mg PO q4 - Solumedrol 40 Q8 - Doxy discontinued - ceftriaxone - azithromycin Headache - motrin History of Alcohol Use Disorder - EtOH Level 21 - Thiamine - Folic - Multivit - no signs of withdrawal at this time - will continue to monitor History of Tobacco Abuse - nicotine patch HTN - Normotensive at this time - continue to monitor History of Iron Def Anemia - continue Fe supplement Ppx, diet - Lovenox - Protonix Pt seen, examined, assessment and plan discussed with Dr Glenis Ibrahim PGY1, Internal Medicine Resident <Carola Galvin - Last Filed: 06/30/18 18:33> Objective - Vital Signs/Intake and Output Vital Signs (last 24 hours): Temp Pulse Resp BP Pulse Ox 98.1 F 80 20 122/77 96 06/30/18 06:00 06/30/18 06:00 06/30/18 06:00 06/30/18 06:00 06/30/18 06:00 - Medications Medications: Current Medications Acetaminophen (Tylenol 325mg Tab) 650 mg PO Q6H PRN PRN Reason: Headache Last Admin: 06/30/18 13:40 Dose: 650 mg Albuterol/Ipratropium (Duoneb 3 Mg/0.5 Mg (3 Ml) Ud) 3 ml IH Q4 ALBA Last Admin: 06/30/18 15:30 Dose: 3 ml Albuterol/Ipratropium (Duoneb 3 Mg/0.5 Mg (3 Ml) Ud) 3 ml IH Q2H PRN PRN Reason: Shortness of Breath Benzocaine/Menthol (Cepacol Sore Throat) 1 magali MT Q2H PRN PRN Reason: Sore Throat Last Admin: 06/30/18 18:13 Dose: 1 magali Budesonide (Pulmicort Respules) 0.5 mg IH [id number] ALBA Enoxaparin Sodium (Lovenox) 40 mg SC DAILY ALBA; Protocol Last Admin: 06/30/18 09:00 Dose: 40 mg Folic Acid (Folic Acid) 1 mg PO DAILY [facility] Last Admin: 06/30/18 09:00 Dose: 1 mg Guaifenesin (Robitussin) 100 mg PO Q4H ALBA Last Admin: 06/30/18 18:13 Dose: 100 mg Ceftriaxone Sodium (Rocephin 1 Gram Ivpb) 1 gm in 100 mls @ 100 mls/hr IVPB DAILY [facility]; Protocol Last Admin: 06/30/18 09:01 Dose: 100 mls/hr Azithromycin 250 mg/ Sodium (Chloride) 250 mls @ 167 mls/hr IVPB DAILY [facility]; Protocol Last Admin: 06/30/18 09:44 Dose: 167 mls/hr Ibuprofen (Motrin Tab) 600 mg PO Q6H PRN PRN Reason: Pain, moderate (4-7) Lorazepam (Ativan) 1 mg IVP Q6H PRN; Protocol PRN Reason: Seizure activity Last Admin: 06/30/18 08:58 Dose: 1 mg Methylprednisolone (Solu-Medrol) 40 mg IVP Q8 [facility] Last Admin: 06/30/18 13:44 Dose: 40 mg Multivitamins (Thera Tab) 1 tab PO 0800 [facility] Last Admin: 06/30/18 09:00 Dose: 1 tab Nicotine (Nicoderm Cq) 1 patch TD DAILY [facility] Last Admin: 06/30/18 09:01 Dose: 1 patch Pantoprazole Sodium (Protonix Ec Tab) 40 mg PO 0600 [facility] Last Admin: 06/30/18 05:38 Dose: 40 mg Polysaccharide Iron Complex (Ferrex-150) 150 mg PO DAILY [facility] Last Admin: 06/30/18 09:00 Dose: 150 mg Thiamine HCl (Vitamin B1 Tab) 100 mg PO DAILY [facility] Last Admin: 06/30/18 09:00 Dose: 100 mg - Labs Labs: 06/30/18 06:00 06/30/18 06:00 PT 10.8 SECONDS (9.4-12.5) 06/28/18 21:25 INR 0.95 06/28/18 21:25 APTT 28.5 Seconds (25.1-36.5) 06/28/18 21:25 Attending/Attestation - Attestation I have personally seen and examined this patient.: Yes I have fully participated in the care of the patient.: Yes I have reviewed all pertinent clinical information, including history, physical exam and plan: Yes Notes (Text): 06/30/18 18:29 Attending note; Patient seen and examined with resident. Patient is lying in bed. Complaining of severe cough and shortness of breath. On oxygen nasal cannula continuously. Patient was not able to ambulate to the bathroom. Denies any fevers, chills. Complaining of sore throat and poor by mouth intake. Patient is a 57-year-old female with a PMH of anemia, hypertension, COPD (not on home O2), and alcohol abuse; presented [place] [facility] [place] for SOB. 1. Acute COPD exacerbation; Continue oxygen, DuoNeb and IV Solu-Medrol. 2. Streptococcus pharyngitis; continue IV Rocephin and Zithromax. Continue Cepacol lozenges. 3. Severe cough; continue Robitussin. 4. Active smoking with worsening of lung function. Complete smoking cessation is strongly advised. Placed on NicoDerm patch. 5. History of alcohol use; complete alcohol cessation is strongly advised. IV Ativan when necessary ordered. 6. Patient with exertional shortness of breath. PT evaluation appreciated. Patient OXYGEN saturation drops with ambulation to 83%. Monitor closely. Patient might need oxygen upon discharge. Upon discharge the patient will follow-up with PMD Dr. Mar. 06/30/18 18:33
[2018-06-30] MEDS: guaiFENesin 100 mg/5 ml Syrup UD PO SCH ×3 (16:40→20:30)
[2018-06-30] MEDS: Benzocaine/Menthol (Cepacol) Lozenge MT PRN (18:13)
[2018-07-01] MEDS: guaiFENesin 100 mg/5 ml Syrup UD PO SCH ×7 (00:20→22:33)
[2018-07-01] MEDS: Albuterol-Ipratrop 3 mg / 0.5 (3 ml) UD IH SCH ×7 (00:45→23:17)
[2018-07-01] MEDS: MethylPREDNISolone 40 mg Vial IVP SCH ×3 (06:18→22:33)
[2018-07-01] MEDS: Pantoprazole 40 mg EC Tab PO SCH (06:20)
[2018-07-01 07:03] LABS: BASO # 0.01 K/mm3 (0.0-2.0); BASO % 0.1 % (0.0-3.0); GRAN # 10.71 (1.4-6.5); GRAN % 86.5 % (50.0-68.0); HEMOGLOBIN 10.4 g/dL (12.0-16.0); LYMPH # 0.5 (1.2-3.4); LYMPH % 3.9 % (22.0-35.0); MEAN CELL VOLUME 99.1 fl (80.0-105.0); MEAN CORPUSCULAR HEMOGLOBIN 31.5 pg (25.0-35.0); MEAN CORPUSCULAR HGB CONC 31.8 g/dl (31.0-37.0); MEAN PLATELET VOLUME 8.7 fl (7.0-11.0); MONO # 1.2 (0.1-0.6); MONO % 9.5 % (1.0-6.0); RBC 3.3 10^6/uL (3.5-6.1); WHITE BLOOD COUNT 12.4 10^3/uL (4.5-11.0)
[2018-07-01 07:08] LABS: ALB/GLOB RATIO 1.2 (1.1-1.8); ALBUMIN 3.9 g/dL (3.0-4.8); ALT/SGPT 16 U/L (7-56); AST/SGOT 34 U/L (14-36); BLOOD UREA NITROGEN 13 mg/dL (7-21); CALCIUM 9.7 mg/dL (8.4-10.5); GFR NON-AFRICAN AMERICAN > 60
[2018-07-01] MEDS: cefTRIAXone 1 gm 1 GM/100 ML BAG IVPB SCH (09:54)
[2018-07-01] MEDS: Enoxaparin 40 mg Syringe SC SCH (09:54)
[2018-07-01] MEDS: Iron Complex Polysacch 150mg Cap PO SCH (09:54)
[2018-07-01] MEDS: Multivitamin Therapeutic Tab PO SCH (09:55)
[2018-07-01] MEDS: Azithromycin 250 MG in Sodium Chloride 0.9% 250 ML IVPB SCH (10:40)
--- NOTE | 2018-07-01 11:12 | CP.PCM.PN ---
<Kathy Shepard - Last Filed: 07/01/18 12:15> Subjective - Date & Time of Evaluation Date of Evaluation: 07/01/18 Time of Evaluation: 11:12 - Subjective Subjective: PGY1 Progress Note for Dr. Galvin Patient was seen and evaluated at bedside this morning. Patient denies chest pain, SOB, nausea, vomiting, fever, and/or chills. Patient complains of headache and continues to complain of cough. Patient otherwise has no compl aints. Objective - Vital Signs/Intake and Output Vital Signs (last 24 hours): Temp Pulse Resp BP Pulse Ox 98.2 F 83 20 151/93 H 95 07/01/18 09:03 07/01/18 09:03 07/01/18 09:03 07/01/18 09:03 07/01/18 09:03 - Medications Medications: Current Medications Acetaminophen (Tylenol 325mg Tab) 650 mg PO Q6H PRN PRN Reason: Headache Last Admin: 06/30/18 13:40 Dose: 650 mg Albuterol/Ipratropium (Duoneb 3 Mg/0.5 Mg (3 Ml) Ud) 3 ml IH Q4 [facility] Last Admin: 07/01/18 08:16 Dose: 3 ml Albuterol/Ipratropium (Duoneb 3 Mg/0.5 Mg (3 Ml) Ud) 3 ml IH Q2H PRN PRN Reason: Shortness of Breath Benzocaine/Menthol (Cepacol Sore Throat) 1 magali MT Q2H PRN PRN Reason: Sore Throat Last Admin: 06/30/18 18:13 Dose: 1 magali Budesonide (Pulmicort Respules) 0.5 mg IH [id number] [facility] Enoxaparin Sodium (Lovenox) 40 mg SC DAILY [facility]; Protocol Last Admin: 07/01/18 09:54 Dose: 40 mg Folic Acid (Folic Acid) 1 mg PO DAILY [facility] Last Admin: 07/01/18 09:55 Dose: 1 mg Guaifenesin (Robitussin) 100 mg PO Q4H [facility] Last Admin: 07/01/18 09:53 Dose: 100 mg Ceftriaxone Sodium (Rocephin 1 Gram Ivpb) 1 gm in 100 mls @ 100 mls/hr IVPB DAILY [facility]; Protocol Last Admin: 07/01/18 09:54 Dose: 100 mls/hr Azithromycin 250 mg/ Sodium (Chloride) 250 mls @ 167 mls/hr IVPB DAILY [facility]; Protocol Last Admin: 07/01/18 10:40 Dose: 167 mls/hr Ibuprofen (Motrin Tab) 600 mg PO Q6H PRN PRN Reason: Pain, moderate (4-7) Last Admin: 07/01/18 09:55 Dose: 600 mg Lorazepam (Ativan) 1 mg IVP Q6H PRN; Protocol PRN Reason: Seizure activity Last Admin: 06/30/18 08:58 Dose: 1 mg Methylprednisolone (Solu-Medrol) 40 mg IVP Q8 [facility] Last Admin: 07/01/18 06:18 Dose: 40 mg Multivitamins (Thera Tab) 1 tab PO 0800 [facility] Last Admin: 07/01/18 09:55 Dose: 1 tab Nicotine (Nicoderm Cq) 1 patch TD DAILY [facility] Last Admin: 06/30/18 09:01 Dose: 1 patch Pantoprazole Sodium (Protonix Ec Tab) 40 mg PO 0600 [facility] Last Admin: 07/01/18 06:20 Dose: 40 mg Polysaccharide Iron Complex (Ferrex-150) 150 mg PO DAILY [facility] Last Admin: 07/01/18 09:54 Dose: 150 mg Thiamine HCl (Vitamin B1 Tab) 100 mg PO DAILY [facility] Last Admin: 07/01/18 09:55 Dose: 100 mg - Labs Labs: 07/01/18 05:30 07/01/18 05:30 PT 10.8 SECONDS (9.4-12.5) 06/28/18 21:25 INR 0.95 06/28/18 21:25 APTT 28.5 Seconds (25.1-36.5) 06/28/18 21:25 - Additional Findings Additional findings: - Constitutional Appears: No Acute Distress - Head Exam Head Exam: ATRAUMATIC, NORMOCEPHALIC - Eye Exam Eye Exam: EOMI - ENT Exam ENT Exam: Mucous Membranes Moist Additional comments: white exudates in posterior pharynx - Neck Exam Neck Exam: Full ROM - Respiratory Exam Respiratory Exam: Rhonchi, Wheezes. absent: Accessory Muscle Use, Respiratory Distress - Cardiovascular Exam Cardiovascular Exam: RRR, +S1, +S2. absent: Diastolic murmur, Murmur - GI/Abdominal Exam GI & Abdominal Exam: Soft, Normal Bowel Sounds - Extremities Exam Extremities Exam: Full ROM. absent: Pedal Edema - Neurological Exam Neurological Exam: Alert, Awake, Oriented x3 - Psychiatric Exam Psychiatric exam: Normal Affect, Normal Mood - Skin Skin Exam: Dry, Intact, Warm Assessment and Plan - Assessment and Plan (Free Text) Assessment: Patient is a 57-year-old Female with a PMH of anemia, hypertension, COPD (not on home O2), and alcohol abuse; presented to [facility] on 06/[facility] for SOB. Plan: Group A Strep Pharyngitis - Group A Strep Positive - Influenza a/b Negative - Underlying COPD - Afebrile, no tachycarida - O2 2L NC - Continue: Duoneb [facility] and PRN, Pulmicort Q12H, Guaifenesin 100mg PO Q4H - Continue solumedrol 40 Q8H - Continue ceftriaxone - Continue azithromycin Headache - Continue motrin PRN History of Alcohol Use Disorder - EtOH Level 21 on admission - Continue Thiamine - Continue Folic Acid - Continue Multivit - No signs of withdrawal at this time - Monitor History of Tobacco Abuse - Continue Nicotine patch - Educated patient on importance of complete cessation of tobacco products HTN - Normotensive at this time - Continue to monitor History of Iron Def Anemia - Continue Fe supplement Ppx, diet - DVT: Lovenox - GI: Protonix Patient seen and case discussed in detail with Dr Glenis Shepard PGY1 <Carola Galvin - Last Filed: 07/01/18 13:56> Objective - Vital Signs/Intake and Output Vital Signs (last 24 hours): Temp Pulse Resp BP Pulse Ox 98.2 F 83 20 151/93 H 95 07/01/18 09:03 07/01/18 09:03 07/01/18 09:03 07/01/18 09:03 07/01/18 09:03 - Medications Medications: Current Medications Acetaminophen (Tylenol 325mg Tab) 650 mg PO Q6H PRN PRN Reason: Headache Last Admin: 06/30/18 13:40 Dose: 650 mg Albuterol/Ipratropium (Duoneb 3 Mg/0.5 Mg (3 Ml) Ud) 3 ml IH Q4 [facility] Last Admin: 07/01/18 11:46 Dose: 3 ml Albuterol/Ipratropium (Duoneb 3 Mg/0.5 Mg (3 Ml) Ud) 3 ml IH Q2H PRN PRN Reason: Shortness of Breath Benzocaine/Menthol (Cepacol Sore Throat) 1 magali MT Q2H PRN PRN Reason: Sore Throat Last Admin: 06/30/18 18:13 Dose: 1 magali Budesonide (Pulmicort Respules) 0.5 mg IH [id number] [id number] Enoxaparin Sodium (Lovenox) 40 mg SC DAILY [facility]; Protocol Last Admin: 07/01/18 09:54 Dose: 40 mg Folic Acid (Folic Acid) 1 mg PO DAILY [facility] Last Admin: 07/01/18 09:55 Dose: 1 mg Guaifenesin (Robitussin) 100 mg PO Q4H [facility] Last Admin: 07/01/18 11:41 Dose: Not Given Ceftriaxone Sodium (Rocephin 1 Gram Ivpb) 1 gm in 100 mls @ 100 mls/hr IVPB DAILY [facility]; Protocol Last Admin: 07/01/18 09:54 Dose: 100 mls/hr Azithromycin 250 mg/ Sodium (Chloride) 250 mls @ 167 mls/hr IVPB DAILY [facility]; Pro tocol Last Admin: 07/01/18 10:40 Dose: 167 mls/hr Ibuprofen (Motrin Tab) 600 mg PO Q6H PRN PRN Reason: Pain, moderate (4-7) Last Admin: 07/01/18 09:55 Dose: 600 mg Lorazepam (Ativan) 1 mg IVP Q6H PRN; Protocol PRN Reason: Seizure activity Last Admin: 06/30/18 08:58 Dose: 1 mg Methylprednisolone (Solu-Medrol) 40 mg IVP Q8 [facility] Last Admin: 07/01/18 06:18 Dose: 40 mg Multivitamins (Thera Tab) 1 tab PO 0800 [facility] Last Admin: 07/01/18 09:55 Dose: 1 tab Nicotine (Nicoderm Cq) 1 patch TD DAILY [facility] Last Admin: 07/01/18 10:40 Dose: 1 patch Pantoprazole Sodium (Protonix Ec Tab) 40 mg PO 0600 [facility] Last Admin: 07/01/18 06:20 Dose: 40 mg Polysaccharide Iron Complex (Ferrex-150) 150 mg PO DAILY [facility] Last Admin: 07/01/18 09:54 Dose: 150 mg Thiamine HCl (Vitamin B1 Tab) 100 mg PO DAILY [facility] Last Admin: 07/01/18 09:55 Dose: 100 mg - Labs Labs: 07/01/18 05:30 07/01/18 05:30 PT 10.8 SECONDS (9.4-12.5) 06/28/18 21:25 INR 0.95 06/28/18 21:25 APTT 28.5 Seconds (25.1-36.5) 06/28/18 21:25 Attending/Attestation - Attestation I have personally seen and examined this patient.: Yes I have fully participated in the care of the patient.: Yes I have reviewed all pertinent clinical information, including history, physical exam and plan: Yes Notes (Text): 07/01/18 13:55 Attending note; Patient seen and examined with resident. Patient is lying in bed. still Complaining of cough and shortness of breath. On oxygen nasal cannula continuously. Denies any fevers, chills. Patient is a 57-year-old female with a PMH of anemia, hypertension, COPD (not on home O2), and alcohol abuse; presented to [facility] on 06/29 for SOB. 1. Acute COPD exacerbation; Continue oxygen, DuoNeb and IV Solu-Medrol. still significant wheezing and cough. 2. Streptococcus pharyngitis; continue IV Rocephin and Zithromax. Continue Cepacol lozenges. 3. Severe cough; continue Robitussin [id number]. 4. Active smoking with worsening of lung function. Complete smoking cessation is strongly advised. Placed on NicoDerm patch. CT chest ordered. 5. History of alcohol use; complete alcohol cessation is strongly advised. IV A tivan when necessary ordered. 6. Patient with exertional shortness of breath. PT evaluation appreciated. Patient OXYGEN saturation drops with ambulation to 83%. Patient might need oxygen upon discharge. Upon discharge the patient will follow-up with PMD Dr. Mar.
--- NOTE | 2018-07-01 17:55 | CT ---
Date of service: 07/01/2018 PROCEDURE: CT Chest without contrast HISTORY: copd COMPARISON: None available. TECHNIQUE: Contiguous axial images were obtained through the chest without intravenous contrast enhancement. Sagittal and coronal reconstructions were performed. High-resolution algorithm employed Radiation dose: Total exam DLP = 181.06 mGy-cm. This CT exam was performed using one or more of the following dose reduction techniques: Automated exposure control, adjustment of the mA and/or kV according to patient size, and/or use of iterative reconstruction technique. FINDINGS: LUNGS: Volume loss limited to the right middle lobe. This is likely related to endobronchial lesion. There appears to be a right hilar mass. Although the findings are apparent on axial images, the irregularity and narrowing of the bronchus is best seen on sagittal series 601/image 49. The finding is marked on the study for review. Hyperinflation/manifestations of COPD. Centrilobular emphysematous changes noted. Linear scarring/atelectasis identified in the lateral segment the left lower. Bronchial thickening without mucous plugging indicative of mild bronchitis. MEDIASTINUM: Unremarkable thoracic aorta. No aneurysm. Normal sized heart. Main pulmonary artery unremarkable. No vascular congestion. Atherosclerotic calcification and mural plaque present. Findings are seen throughout the aorta PLEURA: No pleural fluid. No pneumothorax. BONES: No fracture. No destructive lesion. UPPER ABDOMEN: Grossly unremarkable. OTHER FINDINGS: None. IMPRESSION: Postobstructive atelectasis right middle lobe related to narrowing of the right middle lobe bronchus. These findings would be better seen with contrast-enhanced CT of the thorax. Additional benign and/or incidental findings described above.
[2018-07-01] MEDS: Benzocaine/Menthol (Cepacol) Lozenge MT PRN (18:35)
[2018-07-02] MEDS: guaiFENesin 100 mg/5 ml Syrup UD PO SCH ×6 (04:00→23:34)
[2018-07-02] MEDS: Albuterol-Ipratrop 3 mg / 0.5 (3 ml) UD IH SCH ×6 (04:56→23:15)
[2018-07-02] MEDS: Pantoprazole 40 mg EC Tab PO SCH (06:03)
[2018-07-02] MEDS: MethylPREDNISolone 40 mg Vial IVP SCH ×3 (06:04→21:39)
[2018-07-02 06:45] LABS: BASO # 0.02 K/mm3 (0.0-2.0); BASO % 0.3 % (0.0-3.0); GRAN # 5.96 (1.4-6.5); HEMOGLOBIN 10.4 g/dL (12.0-16.0); LYMPH # 0.8 (1.2-3.4); LYMPH % 9.9 % (22.0-35.0); MEAN CELL VOLUME 98.5 fl (80.0-105.0); MEAN CORPUSCULAR HEMOGLOBIN 30.8 pg (25.0-35.0); MEAN CORPUSCULAR HGB CONC 31.2 g/dl (31.0-37.0); MEAN PLATELET VOLUME 8.5 fl (7.0-11.0); MONO % 12.8 % (1.0-6.0); RBC 3.38 10^6/uL (3.5-6.1); RED CELL DISTRIBUTION WIDTH 15.1 % (11.5-14.5); WHITE BLOOD COUNT 7.7 10^3/uL (4.5-11.0)
[2018-07-02 06:52] LABS: ALB/GLOB RATIO 1.1 (1.1-1.8); ALBUMIN 3.7 g/dL (3.0-4.8); ALT/SGPT 27 U/L (7-56); AST/SGOT 38 U/L (14-36); BLOOD UREA NITROGEN 17 mg/dL (7-21); CALCIUM 9.5 mg/dL (8.4-10.5); GFR NON-AFRICAN AMERICAN > 60
--- NOTE | 2018-07-02 10:01 | CP.PCM.PN ---
<Kathy Shepard - Last Filed: 07/02/18 14:17> Subjective - Date & Time of Evaluation Date of Evaluation: 07/02/18 Time of Evaluation: 10:01 - Subjective Subjective: PGY1 Progress Note for Dr. Galvin Patient was seen and evaluated at bedside this morning. Patient denies chest pain, SOB, nausea, vomiting, fever, and/or chills. Patient complains of persistent productive cough. Patient otherwise has no complaints. Objective - Vital Signs/Intake and Output Vital Signs (last 24 hours): Temp Pulse Resp BP Pulse Ox 97.9 F 85 18 152/93 H 97 07/02/18 07:45 07/02/18 07:45 07/02/18 07:45 07/02/18 07:45 07/02/18 07:45 - Medications Medications: Current Medications Acetaminophen (Tylenol 325mg Tab) 650 mg PO Q6H PRN PRN Reason: Headache Last Admin: 06/30/18 13:40 Dose: 650 mg Albuterol/Ipratropium (Duoneb 3 Mg/0.5 Mg (3 Ml) Ud) 3 ml IH Q4 [facility] Last Admin: 07/02/18 08:19 Dose: 3 ml Albuterol/Ipratropium (Duoneb 3 Mg/0.5 Mg (3 Ml) Ud) 3 ml IH Q2H PRN PRN Reason: Shortness of Breath Benzocaine/Menthol (Cepacol Sore Throat) 1 magali MT Q2H PRN PRN Reason: Sore Throat Last Admin: 07/01/18 18:35 Dose: 1 magali Budesonide (Pulmicort Respules) 0.5 mg IH [id number] [facility] Enoxaparin Sodium (Lovenox) 40 mg SC DAILY [facility]; Protocol Last Admin: 07/01/18 09:54 Dose: 40 mg Folic Acid (Folic Acid) 1 mg PO DAILY [facility] Last Admin: 07/01/18 09:55 Dose: 1 mg Guaifenesin (Robitussin) 100 mg PO Q4H [facility] Last Admin: 07/02/18 04:00 Dose: Not Given Azithromycin 250 mg/ Sodium (Chloride) 250 mls @ 167 mls/hr IVPB DAILY [facility]; Protocol Last Admin: 07/01/18 10:40 Dose: 167 mls/hr Ibuprofen (Motrin Tab) 600 mg PO Q6H PRN PRN Reason: Pain, moderate (4-7) Last Admin: 07/01/18 18:35 Dose: 600 mg Lorazepam (Ativan) 1 mg IVP Q6H PRN; Protocol PRN Reason: Seizure activity Last Admin: 06/30/18 08:58 Dose: 1 mg Methylprednisolone (Solu-Medrol) 40 mg IVP Q8 [facility] Last Admin: 07/02/18 06:04 Dose: 40 mg Multivitamins (Thera Tab) 1 tab PO 0800 [facility] Last Admin: 07/01/18 09:55 Dose: 1 tab Nicotine (Nicoderm Cq) 1 patch TD DAILY [facility] Last Admin: 07/01/18 10:40 Dose: 1 patch Pantoprazole Sodium (Protonix Ec Tab) 40 mg PO 0600 [facility] Last Admin: 07/02/18 06:03 Dose: 40 mg Polysaccharide Iron Complex (Ferrex-150) 150 mg PO DAILY [facility] Last Admin: 07/01/18 09:54 Dose: 150 mg Thiamine HCl (Vitamin B1 Tab) 100 mg PO DAILY [facility] Last Admin: 07/01/18 09:55 Dose: 100 mg - Labs Labs: 07/02/18 05:00 07/02/18 05:00 PT 10.8 SECONDS (9.4-12.5) 06/28/18 21:25 INR 0.95 06/28/18 21:25 APTT 28.5 Seconds (25.1-36.5) 06/28/18 21:25 - Additional Findings Additional findings: - Constitutional Appears: No Acute Distress - Head Exam Head Exam: ATRAUMATIC, NORMOCEPHALIC - Eye Exam Eye Exam: EOMI - ENT Exam ENT Exam: Mucous Membranes Moist Additional comments: white exudates in posterior pharynx - Neck Exam Neck Exam: Full ROM - Respiratory Exam Respiratory Exam: Rhonchi, Wheezes. absent: Accessory Muscle Use, Respiratory Distress - Cardiovascular Exam Cardiovascular Exam: RRR, +S1, +S2. absent: Diastolic murmur, Murmur - GI/Abdominal Exam GI & Abdominal Exam: Soft, Normal Bowel Sounds - Extremities Exam Extremities Exam: Full ROM. absent: Pedal Edema - Neurological Exam Neurological Exam: Alert, Awake, Oriented x3 - Psychiatric Exam Psychiatric exam: Normal Affect, Normal Mood - Skin Skin Exam: Dry, Intact, Warm Assessment and Plan - Assessment and Plan (Free Text) Assessment: Patient is a 57-year-old Female with a PMH of anemia, hypertension, COPD (not on home O2), and alcohol abuse; presented to [facility] on 06/29 for SOB. Plan: SOB likely due to COPD Exacerbation - Possible Hilar Mass, rule-out Lung Ca vs endobronchial lesion on imaging - Patient afebrile - Diffuse expiratory wheezing and rhonchi on exam - Pulmonology was consulted (Dr. Cheek); Patient may need bronchoscopy with +/- EBUS, but would hold off for the time being given active COPD exacerbation with bronchospasm - agrees with current medical management Group A Strep Pharyngitis - Group A Strep Positive - Influenza a/b Negative - Underlying COPD - Afebrile, no tachycarida - O2 2L NC - Continue: Duoneb [facility] and PRN, Pulmicort Q12H, Guaifenesin 100mg PO Q4H - Continue solumedrol 40 Q8H - Continue ceftriaxone - Continue azithromycin Headache - Continue motrin PRN History of Alcohol Use Disorder - EtOH Level 21 on admission - Continue Thiamine - Continue Folic Acid - Continue Multivit - No signs of withdrawal at this time - Monitor History of Tobacco Abuse - Continue Nicotine patch - Educated patient on importance of complete cessation of tobacco products HTN - Normotensive at this time - Continue to monitor History of Iron Def Anemia - Continue Fe supplement Ppx, diet - DVT: Lovenox - GI: Protonix Patient seen and case discussed in detail with Dr Glenis Shepard PGY1 <Carola Galvin - Last Filed: 07/02/18 14:49> Objective - Vital Signs/Intake and Output Vital Signs (last 24 hours): Temp Pulse Resp BP Pulse Ox 97.9 F 85 18 152/93 H 97 07/02/18 07:45 07/02/18 07:45 07/02/18 07:45 07/02/18 07:45 07/02/18 07:45 - Medications Medications: Current Medications Acetaminophen (Tylenol 325mg Tab) 650 mg PO Q6H PRN PRN Reason: Headache Last Admin: 06/30/18 13:40 Dose: 650 mg Albuterol/Ipratropium (Duoneb 3 Mg/0.5 Mg (3 Ml) Ud) 3 ml IH Q4 [facility] Last Admin: 07/02/18 11:30 Dose: 3 ml Albuterol/Ipratropium (Duoneb 3 Mg/0.5 Mg (3 Ml) Ud) 3 ml IH Q2H PRN PRN Reason: Shortness of Breath Benzocaine/Menthol (Cepacol Sore Throat) 1 magali MT Q2H PRN PRN Reason: Sore Throat Last Admin: 07/02/18 10:15 Dose: 1 magali Budesonide (Pulmicort Respules) 0.5 mg IH [id number] [facility] Enoxaparin Sodium (Lovenox) 40 mg SC DAILY [facility]; Protocol Last Admin: 07/02/18 10:29 Dose: 40 mg Folic Acid (Folic Acid) 1 mg PO DAILY [facility] Last Admin: 07/02/18 10:16 Dose: 1 mg Guaifenesin (Robitussin) 100 mg PO Q4H [facility] Last Admin: 07/02/18 12:34 Dose: 100 mg Ibuprofen (Motrin Tab) 600 mg PO Q6H PRN PRN Reason: Pain, moderate (4-7) Last Admin: 07/01/18 18:35 Dose: 600 mg Lorazepam (Ativan) 1 mg IVP Q6H PRN; Protocol PRN Reason: Seizure activity Last Admin: 06/30/18 08:58 Dose: 1 mg Methylprednisolone (Solu-Medrol) 40 mg IVP Q8 [facility] Last Admin: 07/02/18 06:04 Dose: 40 mg Multivitamins (Thera Tab) 1 tab PO 0800 [facility] Last Admin: 07/02/18 10:15 Dose: 1 tab Nicotine (Nicoderm Cq) 1 patch TD DAILY [facility] Last Admin: 07/02/18 10:14 Dose: 1 patch Pantoprazole Sodium (Protonix Ec Tab) 40 mg PO 0600 [facility] Last Admin: 07/02/18 06:03 Dose: 40 mg Polysaccharide Iron Complex (Ferrex-150) 150 mg PO DAILY [facility] Last Admin: 07/02/18 10:15 Dose: 150 mg Thiamine HCl (Vitamin B1 Tab) 100 mg PO DAILY [facility] Last Admin: 07/02/18 10:15 Dose: 100 mg - Labs Labs: 07/02/18 05:00 07/02/18 05:00 PT 10.8 SECONDS (9.4-12.5) 06/28/18 21:25 INR 0.95 06/28/18 21:25 APTT 28.5 Seconds (25.1-36.5) 06/28/18 21:25 Attending/Attestation - Attestation I have personally seen and examined this patient.: Yes I have fully participated in the care of the patient.: Yes I have reviewed all pertinent clinical information, including history, physical exam and plan: Yes Notes (Text): 07/02/18 14:44 Attending note; Patient seen and examined with resident. Patient is lying in bed. still Complaining of cough and shortness of breath. On oxygen nasal cannula continuously. Denies any fevers, chills. Patient is a 57-year-old female with a PMH of anemia, hypertension, COPD (not on home O2), and alcohol abuse; presented to [facility] on 06/29 for SOB. 1. Acute COPD exacerbation; Continue oxygen, DuoNeb and IV Solu-Medrol. still significant wheezing and cough . 2. Streptococcus pharyngitis; continue IV Rocephin and Zithromax. Continue Cepacol lozenges. 3. cough; continue Robitussin [id number]. 4. Active smoking with worsening of lung function. Complete smoking cessation is strongly advised. Placed on NicoDerm patch. CT chest showed possible endobronchial lesion and post obstructive atelectasis. Patient was evaluated by pulmonary today. Patient might need bronchoscopy and EBUS once stabilized. Echocardiogram ordered. 5. History of alcohol use; complete alcohol cessation is strongly advised. IV Ativan when necessary ordered. 6. Patient with exertional shortness of breath. PT evaluation appreciated. Follow-up oxygen saturation closely. Will follow up with pulmonary for further plan. Upon discharge the patient will follow-up with PMD Dr. Mar. 07/02/18 14:48
[2018-07-02] MEDS: Iron Complex Polysacch 150mg Cap PO SCH (10:15)
[2018-07-02] MEDS: Multivitamin Therapeutic Tab PO SCH (10:15)
[2018-07-02] MEDS: Benzocaine/Menthol (Cepacol) Lozenge MT PRN (10:15)
[2018-07-02] MEDS: Azithromycin 250 MG in Sodium Chloride 0.9% 250 ML IVPB SCH (10:16)
[2018-07-02] MEDS: Enoxaparin 40 mg Syringe SC SCH (10:29)
[2018-07-02] MEDS: cefTRIAXone 1 gm 1 GM/100 ML BAG IVPB SCH (12:34)
--- NOTE | 2018-07-02 13:34 | CP.PCM.CON ---
History of Present Illness - History of Present Illness History of Present Illness: Pulmonary Consult Reason for Consult: ?Hilar Mass, COPD, SOB HPI Patient is 57yo female with PMhx of cahexia, COPD on Advair, Ventolin PRN, HTN, presented with 3-4 day history of sputum production, with SOB. Pt reports SOB began 34 days ago, characterized by congestion, wheezing, and associated with cough productive of yellow sputum. Pt denies fever, chills, CP, palpitations. Pt notes she cannot gain weight, but denies weight loss, hemoptysis. No other constitutional symptoms. 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 CT chest with ?hilar mass, ? endobronchial lesion. PMH: anemia, HTN, COPD, alcohol abuse SH: Daily EtOH 1-2 beers, 80 pack year smoking hx, no illicit drug use Sx: 2 x 30 years ago FH: NC All: antihistimines Meds: as per EMR Review of Systems - Review of Systems Review of Systems: as per HPI Past Patient History - Infectious Disease Hx of Infectious Diseases: None - Tetanus Immunizations Tetanus Immunization: Unknown - Past Social History Smoking Status: Current Some Days Smoker - CARDIAC Hx Cardiac Disorders: Yes Hx Hypertension: Yes - PULMONARY Hx Chronic Obstructive Pulmonary Disease (COPD): Yes - NEUROLOGICAL Hx Neurological Disorder: No - HEENT Hx HEENT Problems: No - RENAL Hx Chronic Kidney Disease: No - ENDOCRINE/METABOLIC Hx Endocrine Disorders: No - HEMATOLOGICAL/ONCOLOGICAL Hx Blood Disorders: Yes Hx Anemia: Yes - INTEGUMENTARY Hx Dermatological Problems: No - MUSCULOSKELETAL/RHEUMATOLOGICAL Hx Musculoskeletal Disorders: No Hx Falls: No - GASTROINTESTINAL Hx Gastrointestinal Disorders: No - GENITOURINARY/GYNECOLOGICAL Hx Genitourinary Disorders: No - PSYCHIATRIC Hx Psychophysiologic Disorder: No Hx Substance Use: No - SURGICAL HISTORY Hx Section: Yes - ANESTHESIA Hx Anesthesia: Yes Hx Anesthesia Reactions: No Hx Malignant Hyperthermia: No Meds Allergies/Adverse Reactions: Allergies Allergy/AdvReac Type Severity Reaction Status Date / Time Antihistamines - Alkylamine Allergy Unknown RASH Verified 06/29/18 05:19 - Medications Medications: Current Medications Acetaminophen (Tylenol 325mg Tab) 650 mg PO Q6H PRN PRN Reason: Headache Last Admin: 06/30/18 13:40 Dose: 650 mg Albuterol/Ipratropium (Duoneb 3 Mg/0.5 Mg (3 Ml) Ud) 3 ml IH Q4 [facility] Last Admin: 07/02/18 11:30 Dose: 3 ml Albuterol/Ipratropium (Duoneb 3 Mg/0.5 Mg (3 Ml) Ud) 3 ml IH Q2H PRN PRN Reason: Shortness of Breath Benzocaine/Menthol (Cepacol Sore Throat) 1 magali MT Q2H PRN PRN Reason: Sore Throat Last Admin: 07/02/18 10:15 Dose: 1 magali Budesonide (Pulmicort Respules) 0.5 mg IH [id number] [facility] Enoxaparin Sodium (Lovenox) 40 mg SC DAILY [facility]; Protocol Last Admin: 07/02/18 10:29 Dose: 40 mg Folic Acid (Folic Acid) 1 mg PO DAILY [facility] Last Admin: 07/02/18 10:16 Dose: 1 mg Guaifenesin (Robitussin) 100 mg PO Q4H [facility] Last Admin: 07/02/18 12:34 Dose: 100 mg Ibuprofen (Motrin Tab) 600 mg PO Q6H PRN PRN Reason: Pain, moderate (4-7) Last Admin: 07/01/18 18:35 Dose: 600 mg Lorazepam (Ativan) 1 mg IVP Q6H PRN; Protocol PRN Reason: Seizure activity Last Admin: 06/30/18 08:58 Dose: 1 mg Methylprednisolone (Solu-Medrol) 40 mg IVP Q8 [facility] Last Admin: 07/02/18 06:04 Dose: 40 mg Multivitamins (Thera Tab) 1 tab PO 0800 [facility] Last Admin: 07/02/18 10:15 Dose: 1 tab Nicotine (Nicoderm Cq) 1 patch TD DAILY [facility] Last Admin: 07/02/18 10:14 Dose: 1 patch Pantoprazole Sodium (Protonix Ec Tab) 40 mg PO 0600 [facility] Last Admin: 07/02/18 06:03 Dose: 40 mg Polysaccharide Iron Complex (Ferrex-150) 150 mg PO DAILY [facility] Last Admin: 07/02/18 10:15 Dose: 150 mg Thiamine HCl (Vitamin B1 Tab) 100 mg PO DAILY [facility] Last Admin: 07/02/18 10:15 Dose: 100 mg Physical Exam - Constitutional Appears: Non-toxic, No Acute Distress, Cachectic - Head Exam Head Exam: NORMAL INSPECTION - Eye Exam Eye Exam: Normal appearance - ENT Exam ENT Exam: Mucous Membranes Moist - Respiratory Exam Respiratory Exam: Wheezes, NORMAL BREATHING PATTERN - Cardiovascular Exam Cardiovascular Exam: REGULAR RHYTHM, +S1, +S2 - GI/Abdominal Exam GI & Abdominal Exam: Normal Bowel Sounds, Soft - Extremities Exam Extremities exam: Positive for: normal inspection - Back Exam Back exam: NORMAL INSPECTION - Neurological Exam Neurological exam: Alert, Oriented x3 - Psychiatric Exam Psychiatric exam: Normal Affect - Skin Skin Exam: Normal Color, Warm Results - Vital Signs Recent Vital Signs: Last Vital Signs Temp 97.9 F 07/02/18 07:45 Pulse 85 07/02/18 07:45 Resp 18 07/02/18 07:45 BP 152/93 H 07/02/18 07:45 Pulse Ox 97 07/02/18 07:45 - Labs Result Diagrams: 07/02/18 05:00 07/02/18 05:00 Labs: Laboratory Results - last 24 hr 07/02/18 07/02/18 05:00 05:00 WBC 7.7 D RBC 3.38 L Hgb 10.4 L Hct 33.3 L MCV 98.5 MCH 30.8 MCHC 31.2 RDW 15.1 H Plt Count 332 MPV 8.5 Gran % 77.0 H Lymph % (Auto) 9.9 L [place] % (Auto) 12.8 H Eos % (Auto) 0.0 L Baso % (Auto) 0.3 Gran # 5.96 Lymph # (Auto) 0.8 L [place] # (Auto) 1.0 H Eos # (Auto) 0.0 Baso # (Auto) 0.02 Sodium 138 Potassium 4.2 Chloride 104 Carbon Dioxide 28 Anion Gap 11 BUN 17 Creatinine 0.7 Est GFR ( Amer) > 60 Est GFR (Non-Af Amer) > 60 Random Glucose 113 H Calcium 9.5 Total Bilirubin 0.1 L AST 38 H ALT 27 Alkaline Phosphatase 60 Total Protein 6.9 Albumin 3.7 Globulin 3.2 Albumin/Globulin Ratio 1.1 - Imaging and Cardiology Chest x-ray Status: Image reviewed by me, Report reviewed by me CT scan - chest Status: Image reviewed by me, Report reviewed by me Assessment & Plan - Assessment and Plan (Free Text) Assessment: 57yo female a/w SOB, COPD exacerbation, ? lung mass SOB COPD exacerbation Rule out Lung Ca Atelectasis rule out Endobronchial lesion - currently afebrile, BP stable, comfortable in NAD, on exam has diffuse end exp wheezing, rhonchi - labs, imaging, chart reviewed - Possible endobronchial lesion with hilar mass - patient may need bronchoscopy with +/- EBUS, but would hold off for the time being given active COPD exacerbation with bronchospasm - Pulmicort 0.5mg BID - Solumedrol 40mg IV TID - Rocephin, Azithro - Obtain ECHO - Duonebs PRN - GI ppx - DVT ppx - Pulmonary will continue to follow
[2018-07-03] MEDS: guaiFENesin 100 mg/5 ml Syrup UD PO SCH ×6 (03:30→22:45)
[2018-07-03] MEDS: Albuterol-Ipratrop 3 mg / 0.5 (3 ml) UD IH SCH ×5 (03:45→20:18)
[2018-07-03] MEDS: Pantoprazole 40 mg EC Tab PO SCH (05:10)
[2018-07-03] MEDS: MethylPREDNISolone 40 mg Vial IVP SCH ×3 (05:10→22:05)
[2018-07-03 06:35] LABS: BASO # 0.01 K/mm3 (0.0-2.0); BASO % 0.1 % (0.0-3.0); GRAN # 6.08 (1.4-6.5); GRAN % 75.1 % (50.0-68.0); HEMOGLOBIN 10.3 g/dL (12.0-16.0); LYMPH # 0.8 (1.2-3.4); LYMPH % 10.4 % (22.0-35.0); MEAN CORPUSCULAR HEMOGLOBIN 30.9 pg (25.0-35.0); MEAN CORPUSCULAR HGB CONC 31.9 g/dl (31.0-37.0); MEAN PLATELET VOLUME 8.6 fl (7.0-11.0); MONO # 1.2 (0.1-0.6); MONO % 14.4 % (1.0-6.0); RBC 3.33 10^6/uL (3.5-6.1); RED CELL DISTRIBUTION WIDTH 14.8 % (11.5-14.5); WHITE BLOOD COUNT 8.1 10^3/uL (4.5-11.0)
[2018-07-03 07:16] LABS: ALB/GLOB RATIO 1.2 (1.1-1.8); ALBUMIN 3.9 g/dL (3.0-4.8); ALT/SGPT 27 U/L (7-56); AST/SGOT 36 U/L (14-36); BLOOD UREA NITROGEN 25 mg/dL (7-21); CALCIUM 9.9 mg/dL (8.4-10.5); GFR NON-AFRICAN AMERICAN > 60
[2018-07-03] MEDS: Multivitamin Therapeutic Tab PO SCH (08:00)
[2018-07-03] MEDS ORDERED: Azithromycin 250 MG in Sodium Chloride 0.9% 250 ML IVPB SCH (10:00)
[2018-07-03] MEDS ORDERED: Iohexol 300 100 ML IJ ONE (10:30)
--- NOTE | 2018-07-03 10:57 | CP.PCM.PN ---
<Jamel Ibrahim - Last Filed: 07/03/18 11:07> Subjective - Date & Time of Evaluation Date of Evaluation: 07/03/18 Time of Evaluation: 06:20 - Subjective Subjective: Pt seen and examined. Pt reports cough with phlegm. Denies chest pain, SOB. Objective - Vital Signs/Intake and Output Vital Signs (last 24 hours): Temp Pulse Resp BP Pulse Ox 97.8 F 77 20 163/99 H 97 07/03/18 08:08 07/03/18 08:08 07/03/18 08:08 07/03/18 08:08 07/03/18 08:08 - Medications Medications: Current Medications Acetaminophen (Tylenol 325mg Tab) 650 mg PO Q6H PRN PRN Reason: Headache Last Admin: 06/30/18 13:40 Dose: 650 mg Albuterol/Ipratropium (Duoneb 3 Mg/0.5 Mg (3 Ml) Ud) 3 ml IH Q4 [facility] Last Admin: 07/03/18 08:20 Dose: 3 ml Albuterol/Ipratropium (Duoneb 3 Mg/0.5 Mg (3 Ml) Ud) 3 ml IH Q2H PRN PRN Reason: Shortness of Breath Benzocaine/Menthol (Cepacol Sore Throat) 1 magali MT Q2H PRN PRN Reason: Sore Throat Last Admin: 07/02/18 10:15 Dose: 1 magali Budesonide (Pulmicort Respules) 0.5 mg IH [id number] [facility] Enoxaparin Sodium (Lovenox) 40 mg SC DAILY [facility]; Protocol Last Admin: 07/02/18 10:29 Dose: 40 mg Folic Acid (Folic Acid) 1 mg PO DAILY [facility] Last Admin: 07/02/18 10:16 Dose: 1 mg Guaifenesin (Robitussin) 100 mg PO Q4H [facility] Last Admin: 07/03/18 03:30 Dose: Not Given Azithromycin 250 mg/ Sodium (Chloride) 250 mls @ 167 mls/hr IVPB DAILY [facility]; Protocol Ceftriaxone Sodium (Rocephin 1 Gram Ivpb) 1 gm in 100 mls @ 100 mls/hr IVPB DAILY [facility]; Protocol Ibuprofen (Motrin Tab) 600 mg PO Q6H PRN PRN Reason: Pain, moderate (4-7) Last Admin: 07/01/18 18:35 Dose: 600 mg Lisinopril (Zestril) 5 mg PO DAILY [facility] Lorazepam (Ativan) 1 mg IVP Q6H PRN; Protocol PRN Reason: Seizure activity Last Admin: 06/30/18 08:58 Dose: 1 mg Methylprednisolone (Solu-Medrol) 40 mg IVP Q8 [facility] Last Admin: 07/03/18 05:10 Dose: 40 mg Multivitamins (Thera Tab) 1 tab PO 0800 [facility] Last Admin: 07/02/18 10:15 Dose: 1 tab Nicotine (Nicoderm Cq) 1 patch TD DAILY [facility] Last Admin: 07/02/18 10:14 Dose: 1 patch Pantoprazole Sodium (Protonix Ec Tab) 40 mg PO 0600 [facility] Last Admin: 07/03/18 05:10 Dose: 40 mg Polysaccharide Iron Complex (Ferrex-150) 150 mg PO DAILY [facility] Last Admin: 07/02/18 10:15 Dose: 150 mg Thiamine HCl (Vitamin B1 Tab) 100 mg PO DAILY [facility] Last Admin: 07/02/18 10:15 Dose: 100 mg - Labs Labs: 07/03/18 06:00 07/03/18 06:00 PT 10.8 SECONDS (9.4-12.5) 06/28/18 21:25 INR 0.95 06/28/18 21:25 APTT 28.5 Seconds (25.1-36.5) 06/28/18 21:25 - Constitutional Appears: No Acute Distress - Head Exam Head Exam: ATRAUMATIC, NORMOCEPHALIC - Eye Exam Eye Exam: EOMI - ENT Exam ENT Exam: Mucous Membranes Moist Additional comments: exudates posterior pharynx - Neck Exam Neck Exam: Full ROM - Respiratory Exam Respiratory Exam: Rhonchi, NORMAL BREATHING PATTERN. absent: Respiratory Distress - Cardiovascular Exam Cardiovascular Exam: RRR, +S1, +S2. absent: Diastolic murmur, Murmur - GI/Abdominal Exam GI & Abdominal Exam: Soft, Normal Bowel Sounds - Extremities Exam Extremities Exam: Full ROM. absent: Calf Tenderness, Pedal Edema - Neurological Exam Neurological Exam: Alert, Awake, Oriented x3 Assessment and Plan - Assessment and Plan (Free Text) Assessment: Pt is a 57yo female with a PMH of anemia, hypertension, COPD (not on home O2), and alcohol abuse; presented to [facility] on 06/29 for SOB. Plan: SOB, COPD Exacerbation - O2 2L NC - Continue: Duoneb [facility] and PRN, Pulmicort Q12H, Guaifenesin 100mg PO Q4H - Continue solumedrol 40 Q8H - Chest CT with contrast to evaluate possible hilar mass, rule-out Lung Ca vs endobronchial lesion - ECHO follow up - Pulmonology consulted, Dr. Cheek; Patient may need bronchoscopy with EBUS, postpone at this time, given active COPD exacerbation with associated bron chospasm Group A Strep Pharyngitis - Group A Strep Positive - Influenza a/b Negative - Continue ceftriaxone - Continue azithromycin Headache - Continue motrin PRN History of Alcohol Use Disorder - EtOH Level 21 on admission - Continue Thiamine, Folic Acid, Multivit - No signs of withdrawal at this time - continue to monitor History of Tobacco Abuse - Continue Nicotine patch - Educated patient on importance of complete cessation of tobacco products HTN - start lisinopril 5mg - Continue to monitor History of Iron Def Anemia - Continue Fe supplement Ppx, diet - Lovenox - Protonix Pt seen, examined, assessment and plan discussed with Dr Mary Lou Ibrahim PGY1, Internal Medicine Resident <Mary Lou Sotelo R - Last Filed: 07/04/18 07:56> Objective - Vital Signs/Intake and Output Vital Signs (last 24 hours): Temp Pulse Resp BP Pulse Ox 97.2 F L 75 18 125/86 99 07/03/18 18:00 07/03/18 18:00 07/03/18 18:00 07/03/18 18:00 07/03/18 18:00 Intake and Output: 07/04/18 07/04/18 06:59 18:59 Intake Total 1560 Balance 1560 - Medications Medications: Current Medications Acetaminophen (Tylenol 325mg Tab) 650 mg PO Q6H PRN PRN Reason: Headache Last Admin: 06/30/18 13:40 Dose: 650 mg Albuterol/Ipratropium (Duoneb 3 Mg/0.5 Mg (3 Ml) Ud) 3 ml IH Q4 [facility] Last Admin: 07/04/18 04:37 Dose: Not Given Albuterol/Ipratropium (Duoneb 3 Mg/0.5 Mg (3 Ml) Ud) 3 ml IH Q2H PRN PRN Reason: Shortness of Breath Azithromycin (Zithromax) 250 mg PO DAILY [facility] Benzocaine/Menthol (Cepacol Sore Throat) 1 magali MT Q2H PRN PRN Reason: Sore Throat Last Admin: 07/02/18 10:15 Dose: 1 magali Budesonide (Pulmicort Respules) 0.5 mg IH [id number] [facility] Enoxaparin Sodium (Lovenox) 40 mg SC DAILY [facility]; Protocol Last Admin: 07/03/18 11:25 Dose: 40 mg Folic Acid (Folic Acid) 1 mg PO DAILY [facility] Last Admin: 07/03/18 11:25 Dose: 1 mg Guaifenesin (Robitussin) 100 mg PO Q4H [facility] Last Admin: 07/04/18 06:37 Dose: 100 mg Ceftriaxone Sodium (Rocephin 1 Gram Ivpb) 1 gm in 100 mls @ 100 mls/hr IVPB DAILY [facility]; Protocol Last Admin: 07/03/18 11:23 Dose: 100 mls/hr Ibuprofen (Motrin Tab) 600 mg PO Q6H PRN PRN Reason: Pain, moderate (4-7) Last Admin: 07/03/18 20:07 Dose: 600 mg Lisinopril (Zestril) 5 mg PO DAILY [facility] Last Admin: 07/03/18 11:23 Dose: 5 mg Lorazepam (Ativan) 1 mg IVP Q6H PRN; Protocol PRN Reason: Seizure activity Last Admin: 06/30/18 08:58 Dose: 1 mg Methylprednisolone (Solu-Medrol) 40 mg IVP Q8 [facility] Last Admin: 07/04/18 06:35 Dose: 40 mg Multivitamins (Thera Tab) 1 tab PO 0800 [facility] Last Admin: 07/03/18 08:00 Dose: 1 tab Nicotine (Nicoderm Cq) 1 patch TD DAILY [facility] Last Admin: 07/03/18 11:25 Dose: 1 patch Pantoprazole Sodium (Protonix Ec Tab) 40 mg PO 0600 [facility] Last Admin: 07/04/18 06:37 Dose: 40 mg Polysaccharide Iron Complex (Ferrex-150) 150 mg PO DAILY [facility] Last Admin: 07/03/18 11:25 Dose: 150 mg Thiamine HCl (Vitamin B1 Tab) 100 mg PO DAILY [facility] Last Admin: 07/03/18 11:22 Dose: 100 mg - Labs Labs: 07/04/18 06:00 07/04/18 06:30 PT 10.8 SECONDS (9.4-12.5) 06/28/18 21:25 INR 0.95 06/28/18 21:25 APTT 28.5 Seconds (25.1-36.5) 06/28/18 21:25 Attending/Attestation - Attestation I have personally seen and examined this patient.: Yes I have fully participated in the care of the patient.: Yes I have reviewed all pertinent clinical information, including history, physical exam and plan: Yes Notes (Text): Patient seen and examined by me with resident at 11:35 AM on 07/03/18. Case including HPI, physical exam, and assessment and plan discussed with resident. Agree with above with following additions/corrections. Patient is a 57 year old female with past medical history significant for anemia, hypertension, COPD, and alcohol abuse that presented to the emergency room with shortness of breath and chest tightness. Patient states that she feels better. Shortness of breath has improved. Patient denies a sore throat. No difficulty swallowing. States she is getting short of breath walking to the bathroom. Nebulizer treatments are helping. Patient denies chest pain and palpitations. No headaches or dizziness. No fevers or chills. No nausea, vomiting, or abdominal pain. No dysuria. No diarrhea or constipation. Physical exam: General: Awake and alert sitting up in bed in no acute distress HEENT: Normocephalic, atraumatic. Extraocular muscles intact, pupils equal and reactive, no scleral icterus. Oropharynx is pink and moist. No pharyngeal erythema appreciated. Neck is supple. Cardiovascular: Regular rhythm. Normal S1 and S2. No murmurs, rubs, or gallops appreciated Pulmonary: Normal respiratory effort. Decreased breath sounds. Mild expiratory wheezing throughout. No rhonchi or rales appreciated. Gastrointestinal: Soft, nondistended. Nontender. Positive bowel sounds all 4 quadrants. No guarding. Musculoskeletal: Moves all extremities. No calf tenderness. No edema appreciated. Central nervous system: AAOx3, CN 2-12 grossly intact. Dermatologic: Skin warm and dry. Assessment and plan: Patient is a 57 year old female with past medical history significant for anemia, hypertension, COPD, and alcohol abuse that presented to the emergency room with shortness of breath and chest tightness. 1.COPD exacerbation. Continue nebulizer treatments. Continue Solumedrol. Continue Pulmicort and Robitussin. Continue O2 via nasal cannula. Pulmonary following, recommendations appreciated. 2. Possible endobronchial lesion on CT. Chest CT per radiologist showed post- obstructive atelectasis right middle lobe related to narrowing of the right middle lobe bronchus. Pulmonary following, may need bronchoscopy as outpatient. Will need repeat chest CT as outpatient per it security manager. 2D echo pending. 3. Group A Beta Strep Pharyngitis. Continue Cepacol as needed. Continue Rocephin and Zithromax. Afebrile. Leukocytosis resolved. 4. Alcohol abuse. Continue thiamine, folic acid, Multivitamin. No alcohol withdrawal symptoms. Patient counseled on cessation. 5. Essential Hypertension. Started on Lisinopril. 6. Iron deficiency anemia. Continue Ferrex. H&H stable. Continue to monitor CBC. 7. Tobacco abuse. Continue Nicotine patch. Patient counseled at length on c essation. 8. GI/DVT prophylaxis. Protonix/Lovenox 9. Paitent is a full code. Case was discussed in detail with the patient regarding current diagnosis and treatment plan. All questions answered.
[2018-07-03] MEDS: cefTRIAXone 1 gm 1 GM/100 ML BAG IVPB SCH (11:23)
[2018-07-03] MEDS: Iron Complex Polysacch 150mg Cap PO SCH (11:25)
[2018-07-03] MEDS: Enoxaparin 40 mg Syringe SC SCH (11:25)
--- NOTE | 2018-07-03 17:53 | PN ---
DATE: 07/03/2018 SUBJECTIVE: The patient is seen and examined at bedside. She is comfortable. She talks full sentences and she reports that her breathing improved; however, she is still coughing with a little bit of whitish phlegm. PHYSICAL EXAMINATION: VITAL SIGNS: Temperature 97.8, blood pressure 163/99, respiratory rate 20, oxygen saturation 97% on 2 liters nasal cannula. ENT: Head and neck atraumatic. LUNGS: Scattered wheezes bilaterally. Heart: Regular rate and rhythm. S1 and S2 normal. ABDOMEN: Soft, nontender, nondistended. MUSCULOSKELETAL: No C/C/E. NEURO: The patient moves all extremities spontaneously. SKIN: Moist. PSYCH: The patient is alert, awake and oriented x3. LABORATORY DATA: WBC 8.1, hemoglobin 10.3, platelet count 339 . Influenza negative. Group A beta strep positive, alcohol slightly elevated. Chemistries sodium 137, potassium 4.2, chloride 99, carbon dioxide 29, BUN 25, creatinine 0.7, glucose 104, AST 36, ALT 27, total bilirubin 0.2. INR 0.95. MEDICATIONS: Tylenol p.r.n., DuoNeb p.r.n., DuoNeb every 4 hours, Pulmicort every 12 hours, Lovenox 40 mg subcu daily, folic acid, morphine p.r.n., Zestril, Ativan p.r.n., Solu-Medrol 40 mg IV every 8 hours, Nicotine patch, Protonix, ceftriaxone, thiamine, azithromycin. ASSESSMENT: This is a 57-year-old lady with chronic obstructive pulmonary disease exacerbation, was found to have some atelectasis in the right middle lobe which were concerning for endobronchial lesion versus mucus block, coinciding with some lymphadenopathy. PLAN: At present time I agree and will continue steroid taper, antibiotics and bronchodilators. The patient subjectively somewhat improved. The patient would need to come back after discharge to pulmonary clinic either the one that recommended by her primary medical doctor or here at [facility] to repeat CT scan with IV contrast to either ascertain resolution of the atelectasis in the right middle lobe or proceed with bronchoscopy to rule out endobronchial lesion. I would continue with maintaining euvolemia, euglycemia, normothermia and oxygen saturation more than 90%. I will continue with DVT, GI prophylaxis. Chest PT would probably be also indicated. We will follow. Mark Washington MD
[2018-07-04] MEDS: Albuterol-Ipratrop 3 mg / 0.5 (3 ml) UD IH SCH ×6 (00:05→20:22)
[2018-07-04] MEDS: guaiFENesin 100 mg/5 ml Syrup UD PO SCH ×5 (02:31→23:30)
[2018-07-04] MEDS: MethylPREDNISolone 40 mg Vial IVP SCH ×2 (06:35→13:25)
[2018-07-04] MEDS: Pantoprazole 40 mg EC Tab PO SCH (06:37)
[2018-07-04 06:56] LABS: BASO # 0.02 K/mm3 (0.0-2.0); BASO % 0.2 % (0.0-3.0); GRAN # 6.65 (1.4-6.5); GRAN % 77.6 % (50.0-68.0); HEMOGLOBIN 10.7 g/dL (12.0-16.0); LYMPH # 0.9 (1.2-3.4); LYMPH % 10.5 % (22.0-35.0); MEAN CELL VOLUME 97.1 fl (80.0-105.0); MEAN CORPUSCULAR HEMOGLOBIN 30.8 pg (25.0-35.0); MEAN CORPUSCULAR HGB CONC 31.8 g/dl (31.0-37.0); MEAN PLATELET VOLUME 8.6 fl (7.0-11.0); MONO % 11.7 % (1.0-6.0); RBC 3.47 10^6/uL (3.5-6.1); RED CELL DISTRIBUTION WIDTH 14.9 % (11.5-14.5); WHITE BLOOD COUNT 8.6 10^3/uL (4.5-11.0)
[2018-07-04 07:26] LABS: ALB/GLOB RATIO 1.1 (1.1-1.8); ALBUMIN 3.7 g/dL (3.0-4.8); ALT/SGPT 25 U/L (7-56); AST/SGOT 45 U/L (14-36); BLOOD UREA NITROGEN 30 mg/dL (7-21); CALCIUM 9.5 mg/dL (8.4-10.5); GFR NON-AFRICAN AMERICAN > 60
[2018-07-04] MEDS: Iron Complex Polysacch 150mg Cap PO SCH (10:03)
[2018-07-04] MEDS: Enoxaparin 40 mg Syringe SC SCH (10:04)
[2018-07-04] MEDS: cefTRIAXone 1 gm 1 GM/100 ML BAG IVPB SCH (10:07)
[2018-07-04] MEDS: Multivitamin Therapeutic Tab PO SCH (10:07)
--- NOTE | 2018-07-04 10:50 | CARD ---
APPROVED REPORT Date of service: 07/03/2018 EXAM: Two-dimensional and M-mode echocardiogram with Doppler and color Doppler. INDICATION COPD 2D DIMENSIONS Left Atrium (2D)3.3 (1.6-4.0cm)IVSd1.1 (0.7-1.1cm) LVDd3.6 (3.9-5.9cm)PWd0.9 (0.7-1.1cm) LVDs2.4 (2.5-4.0cm)FS (%) 34.2 % LVEF (%)64.0 (>50%) M-Mode DIMENSIONS Aortic Root2.30 (2.2-3.7cm)Aortic Cusp Exc.1.50 (1.5-2.0cm) Aortic Valve AoV Peak Qkmqaaqt287.0cm/Joana Peak GR.7mmHg Mitral Valve MV E Sbogzwlw17.8cm/sMV A Ydkjsevl32.4cm/sE/A ratio0.7 TDI E/Lateral E'0.0E/Medial E'0.0 Tricuspid Valve TR Peak [id number]/sRAP [id number] Peak Gr.11mmHg [id number] LEFT VENTRICLE The left ventricle is normal size. There is normal left ventricular wall thickness. The left ventricular function is normal. The left ventricular ejection fraction is within the normal range. There is normal LV segmental wall motion. RIGHT VENTRICLE The right ventricle is normal size. The right ventricular systolic function is normal. ATRIA The left atrium size is normal. The right atrium size is normal. The interatrial septum is intact with no evidence for an atrial septal defect. AORTIC VALVE The aortic valve is mildly thickened. No aortic regurgitation is present. There is no aortic valvular stenosis. MITRAL VALVE The mitral valve is mildly thickened. There is no mitral valve regurgitation noted. TRICUSPID VALVE The tricuspid valve is normal in structure. There is mild tricuspid regurgitation. There is no pulmonary hypertension. PULMONIC VALVE The pulmonary valve is normal in structure. GREAT VESSELS The aortic root is normal in size. The IVC is normal in size and collapses >50% with inspiration. PERICARDIAL EFFUSION There is no pleural effusion. There is no pericardial effusion. <Conclusion> Normal chamber size. Normal LV systolic function. Mild TR. No evidence of pulmonary HTN.
[2018-07-04] MEDS ORDERED: Iohexol 240 (50 ml) ONE (11:23)
--- NOTE | 2018-07-04 13:40 | CP.PCM.PN ---
Subjective - Date & Time of Evaluation Date of Evaluation: 07/04/18 Time of Evaluation: 11:00 - Subjective Subjective: patient much improved having sob with exertion, not at rest improved throat soreness less cough no sputum no fevers Objective - Vital Signs/Intake and Output Vital Signs (last 24 hours): Temp Pulse Resp BP Pulse Ox 97.8 F 77 19 143/92 H 99 07/04/18 08:15 07/04/18 10:08 07/04/18 08:15 07/04/18 10:08 07/04/18 08:15 Intake and Output: 07/04/18 07/04/18 06:59 18:59 Intake Total 1560 Balance 1560 - Medications Medications: Current Medications Acetaminophen (Tylenol 325mg Tab) 650 mg PO Q6H PRN PRN Reason: Headache Last Admin: 06/30/18 13:40 Dose: 650 mg Albuterol/Ipratropium (Duoneb 3 Mg/0.5 Mg (3 Ml) Ud) 3 ml IH Q4 [facility] Last Admin: 07/04/18 11:23 Dose: 3 ml Albuterol/Ipratropium (Duoneb 3 Mg/0.5 Mg (3 Ml) Ud) 3 ml IH Q2H PRN PRN Reason: Shortness of Breath Azithromycin (Zithromax) 250 mg PO DAILY [facility] Last Admin: 07/04/18 10:08 Dose: 250 mg Benzocaine/Menthol (Cepacol Sore Throat) 1 magali MT Q2H PRN PRN Reason: Sore Throat Last Admin: 07/02/18 10:15 Dose: 1 magali Budesonide (Pulmicort Respules) 0.5 mg IH [id number] [facility] Enoxaparin Sodium (Lovenox) 40 mg SC DAILY [facility]; Protocol Last Admin: 07/04/18 10:04 Dose: 40 mg Folic Acid (Folic Acid) 1 mg PO DAILY [facility] Last Admin: 07/04/18 10:03 Dose: 1 mg Guaifenesin (Robitussin) 100 mg PO Q4H [facility] Last Admin: 07/04/18 13:25 Dose: Not Given Ceftriaxone Sodium (Rocephin 1 Gram Ivpb) 1 gm in 100 mls @ 100 mls/hr IVPB DAILY [facility]; Protocol Last Admin: 07/04/18 10:07 Dose: 100 mls/hr Ibuprofen (Motrin Tab) 600 mg PO Q6H PRN PRN Reason: Pain, moderate (4-7) Last Admin: 07/03/18 20:07 Dose: 600 mg Lisinopril (Zestril) 5 mg PO DAILY [facility] Last Admin: 07/04/18 10:08 Dose: 5 mg Lorazepam (Ativan) 1 mg IVP Q6H PRN; Protocol PRN Reason: Seizure activity Last Admin: 06/30/18 08:58 Dose: 1 mg Methylprednisolone (Solu-Medrol) 40 mg IVP Q8 [facility] Last Admin: 07/04/18 13:25 Dose: 40 mg Multivitamins (Thera Tab) 1 tab PO 0800 [facility] Last Admin: 07/04/18 10:07 Dose: 1 tab Nicotine (Nicoderm Cq) 1 patch TD DAILY [facility] Last Admin: 07/04/18 10:06 Dose: 1 patch Pantoprazole Sodium (Protonix Ec Tab) 40 mg PO 0600 [facility] Last Admin: 07/04/18 06:37 Dose: 40 mg Polysaccharide Iron Complex (Ferrex-150) 150 mg PO DAILY [facility] Last Admin: 07/04/18 10:03 Dose: 150 mg Thiamine HCl (Vitamin B1 Tab) 100 mg PO DAILY [facility] Last Admin: 07/04/18 10:08 Dose: 100 mg - Labs Labs: 07/04/18 06:00 07/04/18 06:30 PT 10.8 SECONDS (9.4-12.5) 06/28/18 21:25 INR 0.95 06/28/18 21:25 APTT 28.5 Seconds (25.1-36.5) 06/28/18 21:25 - Constitutional Appears: Well, Unkempt, Older Than Stated Age - Head Exam Head Exam: ATRAUMATIC, NORMAL INSPECTION, NORMOCEPHALIC - Eye Exam Eye Exam: EOMI, Normal appearance, PERRL Pupil Exam: NORMAL ACCOMODATION, PERRL - Respiratory Exam Respiratory Exam: Prolonged Expiratory Phase, Wheezes. absent: Accessory Muscle Use, Chest Wall Tenderness, Decreased Breath Sounds, Rhonchi - Cardiovascular Exam Cardiovascular Exam: REGULAR RHYTHM, +S1, +S2. absent: Murmur - GI/Abdominal Exam GI & Abdominal Exam: Soft, Normal Bowel Sounds. absent: Tenderness - Extremities Exam Extremities Exam: Full ROM, Normal Capillary Refill, Normal Inspection. absent: Joint Swelling, Pedal Edema Assessment and Plan - Assessment and Plan (Free Text) Assessment: 57F active smoker admitted with COPD exacerbation found to have Step A positive as well as right hilar lung mass. COPD symptoms are improved. Lung mass diff dx includes lung cancer, inflamm, infectious, sarcoid. SOB COPD exacerbation Rule out Lung Ca Atelectasis rule out Endobronchial lesion currently afebrile, BP stable, comfortable in NAD Possible endobronchial lesion with hilar mass, will need EBUS I am working on setting up either follow up or referral for EBUS as currently not done at [facility] she will need outpt PFTs as well - cont Pulmicort 0.5mg BID - Decrease Solumedrol to 40mg IV BID - RocephinDarrick PRN - GI ppx - DVT ppx - will continue to follow Roosevelt Fox MD Pulm
--- NOTE | 2018-07-04 15:05 | CP.PCM.PN ---
<Jamel Ibrahim - Last Filed: 07/04/18 15:13> Subjective - Date & Time of Evaluation Date of Evaluation: 07/04/18 Time of Evaluation: 08:00 - Subjective Subjective: Pt seen and examined. Admits to cough with phlegm and SOB, denies chest pain. Objective - Vital Signs/Intake and Output Vital Signs (last 24 hours): Temp Pulse Resp BP Pulse Ox 97.8 F 77 19 143/92 H 99 07/04/18 08:15 07/04/18 10:08 07/04/18 08:15 07/04/18 10:08 07/04/18 08:15 Intake and Output: 07/04/18 07/04/18 06:59 18:59 Intake Total 1560 Balance 1560 - Medications Medications: Current Medications Acetaminophen (Tylenol 325mg Tab) 650 mg PO Q6H PRN PRN Reason: Headache Last Admin: 06/30/18 13:40 Dose: 650 mg Albuterol/Ipratropium (Duoneb 3 Mg/0.5 Mg (3 Ml) Ud) 3 ml IH Q4 [facility] Last Admin: 07/04/18 11:23 Dose: 3 ml Albuterol/Ipratropium (Duoneb 3 Mg/0.5 Mg (3 Ml) Ud) 3 ml IH Q2H PRN PRN Reason: Shortness of Breath Azithromycin (Zithromax) 250 mg PO DAILY [facility] Last Admin: 07/04/18 10:08 Dose: 250 mg Benzocaine/Menthol (Cepacol Sore Throat) 1 magali MT Q2H PRN PRN Reason: Sore Throat Last Admin: 07/02/18 10:15 Dose: 1 magali Budesonide (Pulmicort Respules) 0.5 mg IH [id number] [facility] Cefpodoxime Proxetil (Vantin) 200 mg PO Q12 [facility] Stop: 07/06/18 10:01 Enoxaparin Sodium (Lovenox) 40 mg SC DAILY [facility]; Protocol Last Admin: 07/04/18 10:04 Dose: 40 mg Folic Acid (Folic Acid) 1 mg PO DAILY [facility] Last Admin: 07/04/18 10:03 Dose: 1 mg Guaifenesin (Robitussin) 100 mg PO Q4H [facility] Last Admin: 07/04/18 13:25 Dose: Not Given Ibuprofen (Motrin Tab) 600 mg PO Q6H PRN PRN Reason: Pain, moderate (4-7) Last Admin: 07/04/18 14:32 Dose: 600 mg Lisinopril (Zestril) 5 mg PO DAILY [facility] Last Admin: 07/04/18 10:08 Dose: 5 mg Lorazepam (Ativan) 1 mg IVP Q6H PRN; Protocol PRN Reason: Seizure activity Last Admin: 06/30/18 08:58 Dose: 1 mg Methylprednisolone (Solu-Medrol) 40 mg IVP Q12 [facility] Multivitamins (Thera Tab) 1 tab PO 0800 [facility] Last Admin: 07/04/18 10:07 Dose: 1 tab Nicotine (Nicoderm Cq) 1 patch TD DAILY [facility] Last Admin: 07/04/18 10:06 Dose: 1 patch Pantoprazole Sodium (Protonix Ec Tab) 40 mg PO 0600 [facility] Last Admin: 07/04/18 06:37 Dose: 40 mg Polysaccharide Iron Complex (Ferrex-150) 150 mg PO DAILY [facility] Last Admin: 07/04/18 10:03 Dose: 150 mg Thiamine HCl (Vitamin B1 Tab) 100 mg PO DAILY [facility] Last Admin: 07/04/18 10:08 Dose: 100 mg - Labs Labs: 07/04/18 06:00 07/04/18 06:30 PT 10.8 SECONDS (9.4-12.5) 06/28/18 21:25 INR 0.95 06/28/18 21:25 APTT 28.5 Seconds (25.1-36.5) 06/28/18 21:25 - Constitutional Appears: No Acute Distress - Head Exam Head Exam: ATRAUMATIC, NORMOCEPHALIC - Eye Exam Eye Exam: EOMI - ENT Exam ENT Exam: Mucous Membranes Moist - Neck Exam Neck Exam: Full ROM - Respiratory Exam Respiratory Exam: Wheezes, NORMAL BREATHING PATTERN. absent: Accessory Muscle Use - Cardiovascular Exam Cardiovascular Exam: RRR, +S1, +S2. absent: Diastolic murmur, Murmur - GI/Abdominal Exam GI & Abdominal Exam: Soft, Normal Bowel Sounds - Extremities Exam Extremities Exam: Full ROM. absent: Calf Tenderness, Pedal Edema - Neurological Exam Neurological Exam: Alert, Awake, Oriented x3 - Psychiatric Exam Psychiatric exam: Normal Affect, Normal Mood - Skin Skin Exam: Dry, Intact, Warm Assessment and Plan - Assessment and Plan (Free Text) Assessment: Pt is a 57yo female with a PMH of anemia, hypertension, COPD (not on home O2), and alcohol abuse; presented to [facility] on 06/29 for SOB. Plan: SOB, COPD Exacerbation - O2 2L NC - Continue: Duoneb ALBA and PRN, Pulmicort Q12H, Guaifenesin 100mg PO Q4H - Continue solumedrol 40 Q12H - ECHO EF 64% - Pulmonology consulted, Dr. Cheek; Patient may need bronchoscopy with EBUS, postpone at this time, given active COPD exacerbation with associated bro nchospasm Group A Strep Pharyngitis - Group A Strep Positive - Influenza a/b Negative - Continue ceftriaxone - Continue vantin 200mg q12 Headache - Continue motrin PRN HTN - start lisinopril 5mg - Controlled well at this time History of Iron Def Anemia - Continue Fe supplement History of Alcohol Use Disorder - EtOH Level 21 on admission - Continue Thiamine, Folic Acid, Multivit History of Tobacco Abuse - Continue Nicotine patch - Educated patient on importance of complete cessation of tobacco products Ppx, diet - Lovenox - Protonix - HHD Pt seen, examined, assessment and plan discussed with Dr Mary Lou Ibrahim PGY1, Internal Medicine Resident <Mary Lou Sotelo R - Last Filed: 07/05/18 09:09> Objective - Vital Signs/Intake and Output Vital Signs (last 24 hours): Temp Pulse Resp BP Pulse Ox 98.1 F 76 18 121/79 98 07/05/18 06:00 07/05/18 06:00 07/05/18 06:00 07/05/18 06:00 07/05/18 06:00 Intake and Output: 07/05/18 07/05/18 06:59 18:59 Intake Total 1920 Balance 1920 - Medications Medications: Current Medications Acetaminophen (Tylenol 325mg Tab) 650 mg PO Q6H PRN PRN Reason: Headache Last Admin: 06/30/18 13:40 Dose: 650 mg Albuterol/Ipratropium (Duoneb 3 Mg/0.5 Mg (3 Ml) Ud) 3 ml IH Q4 [facility] Last Admin: 07/05/18 08:15 Dose: 3 ml Albuterol/Ipratropium (Duoneb 3 Mg/0.5 Mg (3 Ml) Ud) 3 ml IH Q2H PRN PRN Reason: Shortness of Breath Azithromycin (Zithromax) 250 mg PO DAILY [facility] Last Admin: 07/04/18 10:08 Dose: 250 mg Benzocaine/Menthol (Cepacol Sore Throat) 1 magali MT Q2H PRN PRN Reason: Sore Throat Last Admin: 07/02/18 10:15 Dose: 1 magali Budesonide (Pulmicort Respules) 0.5 mg IH [id number] [facility] Cefpodoxime Proxetil (Vantin) 200 mg PO Q12 [facility] Stop: 07/06/18 10:01 Enoxaparin Sodium (Lovenox) 40 mg SC DAILY [facility]; Protocol Last Admin: 07/04/18 10:04 Dose: 40 mg Folic Acid (Folic Acid) 1 mg PO DAILY [facility] Last Admin: 07/04/18 10:03 Dose: 1 mg Guaifenesin (Robitussin) 100 mg PO Q4H [facility] Last Admin: 07/05/18 04:43 Dose: Not Given Ibuprofen (Motrin Tab) 600 mg PO Q6H PRN PRN Reason: Pain, moderate (4-7) Last Admin: 07/04/18 14:32 Dose: 600 mg Lisinopril (Zestril) 5 mg PO DAILY [facility] Last Admin: 07/04/18 10:08 Dose: 5 mg Lorazepam (Ativan) 1 mg IVP Q6H PRN; Protocol PRN Reason: Seizure activity Last Admin: 06/30/18 08:58 Dose: 1 mg Methylprednisolone (Solu-Medrol) 30 mg IVP DAILY [facility] Multivitamins (Thera Tab) 1 tab PO 0800 [facility] Last Admin: 07/04/18 10:07 Dose: 1 tab Nicotine (Nicoderm Cq) 1 patch TD DAILY [facility] Last Admin: 07/04/18 10:06 Dose: 1 patch Pantoprazole Sodium (Protonix Ec Tab) 40 mg PO 0600 [facility] Last Admin: 07/05/18 05:15 Dose: 40 mg Polysaccharide Iron Complex (Ferrex-150) 150 mg PO DAILY [facility] Last Admin: 07/04/18 10:03 Dose: 150 mg Thiamine HCl (Vitamin B1 Tab) 100 mg PO DAILY [facility] Last Admin: 07/04/18 10:08 Dose: 100 mg - Labs Labs: 07/05/18 07:00 07/05/18 07:00 PT 10.8 SECONDS (9.4-12.5) 06/28/18 21:25 INR 0.95 06/28/18 21:25 APTT 28.5 Seconds (25.1-36.5) 06/28/18 21:25 Attending/Attestation - Attestation I have personally seen and examined this patient.: Yes I have fully participated in the care of the patient.: Yes I have reviewed all pertinent clinical information, including history, physical exam and plan: Yes Notes (Text): Patient seen and examined by me with resident at 10:45AM on 07/04/18. Case including HPI, physical exam, and assessment and plan discussed with resident. Agree with above with following additions/corrections. Patient is a 57 year old female with past medical history significant for anemia, hypertension, COPD, and alcohol abuse that presented to the emergency room with shortness of breath and chest tightness. Patient states she is feeling ok. Patient has been walking to the bathroom. States she seems to get short of breath when she comes back to the bed and feels like she needs to use the O2 via nasal cannula. Patient denies a sore throat. No difficulty swallowing. Patient denies chest pain and palpitations. No headaches or dizziness. No fevers or chills. No nausea, vomiting, or abdominal pain. No dysuria. No diarrhea or constipation. Physical exam: General: Awake and alert sitting up in bed in no acute distress HEENT: Normocephalic, atraumatic. Extraocular muscles intact, pupils equal and reactive, no scleral icterus. Oropharynx is pink and moist. No pharyngeal emma thema appreciated. Neck is supple. Cardiovascular: Regular rhythm. Normal S1 and S2. No murmurs, rubs, or gallops appreciated Pulmonary: Normal respiratory effort. Improved breath sounds. Mild expiratory wheezing throughout. No rhonchi or rales appreciated. Gastrointestinal: Soft, nondistended. Nontender. Positive bowel sounds all 4 quadrants. No guarding. Musculoskeletal: Moves all extremities. No calf tenderness. No edema appreciated. Central nervous system: AAOx3, CN 2-12 grossly intact. Dermatologic: Skin warm and dry. Assessment and plan: Patient is a 57 year old female with past medical history significant for anemia, hypertension, COPD, and alcohol abuse that presented to the emergency room with shortness of breath and chest tightness. 1.COPD exacerbation. Improving. Continue nebulizer treatments. Continue Solumedrol. Continue Pulmicort and Robitussin. Continue O2 via nasal cannula. Pulmonary following, recommendations appreciated. Pending 6 minute walk test with physical therapy to monitor O2 levels. 2. Possible endobronchial lesion on CT. Chest CT per radiologist showed post- obstructive atelectasis right middle lobe related to narrowing of the right middle lobe bronchus. Pulmonary following, may need bronchoscopy as outpatient. Will need repeat chest CT as outpatient per marketing database analyst. 2D echo results pending. 3. Group A Beta Strep Pharyngitis. Continue Cepacol as needed. Continue Rocephin and Zithromax. Afebrile. Leukocytosis resolved. 4. Alcohol abuse. Continue thiamine, folic acid, Multivitamin. No alcohol withdrawal symptoms. Patient counseled on cessation. 5. Essential Hypertension. Continue Lisinopril. 6. Iron deficiency anemia. Continue Ferrex. H&H stable. Continue to monitor CBC. 7. Tobacco abuse. Continue Nicotine patch. Patient counseled at length on cessation. 8. GI/DVT prophylaxis. Protonix/Lovenox 9. Johntent is a full code. Case was discussed in detail with the patient regarding current diagnosis and treatment plan. All questions answered.
[2018-07-04] MEDS ORDERED: MethylPREDNISolone 40 mg Vial IVP SCH (22:00)
[2018-07-05] MEDS: Albuterol-Ipratrop 3 mg / 0.5 (3 ml) UD IH SCH ×5 (00:06→16:19)
[2018-07-05] MEDS: guaiFENesin 100 mg/5 ml Syrup UD PO SCH ×6 (01:20→16:20)
[2018-07-05] MEDS: Pantoprazole 40 mg EC Tab PO SCH (05:15)
[2018-07-05 06:52] VITALS: RESP 18; O2SAT 98
[2018-07-05 07:28] LABS: BASO # 0.01 K/mm3 (0.0-2.0); BASO % 0.1 % (0.0-3.0); GRAN # 8.1 (1.4-6.5); GRAN % 77.9 % (50.0-68.0); HEMOGLOBIN 10.7 g/dL (12.0-16.0); LYMPH # 1.2 (1.2-3.4); LYMPH % 11.3 % (22.0-35.0); MEAN CELL VOLUME 98.3 fl (80.0-105.0); MEAN CORPUSCULAR HEMOGLOBIN 30.4 pg (25.0-35.0); MEAN CORPUSCULAR HGB CONC 30.9 g/dl (31.0-37.0); MEAN PLATELET VOLUME 8.4 fl (7.0-11.0); MONO # 1.1 (0.1-0.6); MONO % 10.7 % (1.0-6.0); RBC 3.52 10^6/uL (3.5-6.1); RED CELL DISTRIBUTION WIDTH 15.1 % (11.5-14.5); WHITE BLOOD COUNT 10.4 10^3/uL (4.5-11.0)
[2018-07-05] MEDS ORDERED: MethylPREDNISolone 40 mg Vial IVP SCH ×2 (08:38→10:00)
[2018-07-05 08:45] LABS: ALB/GLOB RATIO 1.2 (1.1-1.8); ALT/SGPT 32 U/L (7-56); AST/SGOT 37 U/L (14-36); BLOOD UREA NITROGEN 30 mg/dL (7-21); CALCIUM 9.8 mg/dL (8.4-10.5); GFR NON-AFRICAN AMERICAN > 60
[2018-07-05] MEDS ORDERED: Cefpodoxime (Vantin) 200 mg Tab PO SCH (10:00)
[2018-07-05] MEDS: Enoxaparin 40 mg Syringe SC SCH (11:15)
[2018-07-05] MEDS: Iron Complex Polysacch 150mg Cap PO SCH (11:15)
[2018-07-05] MEDS: Multivitamin Therapeutic Tab PO SCH (11:16)
--- NOTE | 2018-07-05 13:22 | CP.PCM.PN ---
Subjective - Date & Time of Evaluation Date of Evaluation: 07/05/18 Time of Evaluation: 11:25 - Subjective Subjective: no acute events no sob at rest still some with exertions no fevers pt feeling much better Objective - Vital Signs/Intake and Output Vital Signs (last 24 hours): Temp Pulse Resp BP Pulse Ox 98.1 F 76 18 121/79 98 07/05/18 06:00 07/05/18 06:00 07/05/18 06:00 07/05/18 06:00 07/05/18 06:00 Intake and Output: 07/05/18 07/05/18 06:59 18:59 Intake Total 1920 Balance 1920 - Medications Medications: Current Medications Acetaminophen (Tylenol 325mg Tab) 650 mg PO Q6H PRN PRN Reason: Headache Last Admin: 07/05/18 11:14 Dose: 650 mg Albuterol/Ipratropium (Duoneb 3 Mg/0.5 Mg (3 Ml) Ud) 3 ml IH Q4 [facility] Last Admin: 07/05/18 11:08 Dose: 3 ml Albuterol/Ipratropium (Duoneb 3 Mg/0.5 Mg (3 Ml) Ud) 3 ml IH Q2H PRN PRN Reason: Shortness of Breath Azithromycin (Zithromax) 250 mg PO DAILY [facility] Last Admin: 07/05/18 11:15 Dose: 250 mg Benzocaine/Menthol (Cepacol Sore Throat) 1 magali MT Q2H PRN PRN Reason: Sore Throat Last Admin: 07/02/18 10:15 Dose: 1 magali Budesonide (Pulmicort Respules) 0.5 mg IH [id number] [facility] Last Admin: 07/05/18 11:16 Dose: 0.5 mg Cefpodoxime Proxetil (Vantin) 200 mg PO Q12 [facility] Stop: 07/06/18 10:01 Last Admin: 07/05/18 11:15 Dose: 200 mg Enoxaparin Sodium (Lovenox) 40 mg SC DAILY [facility]; Protocol Last Admin: 07/05/18 11:15 Dose: 40 mg Folic Acid (Folic Acid) 1 mg PO DAILY [facility] Last Admin: 07/05/18 11:15 Dose: 1 mg Guaifenesin (Robitussin) 100 mg PO Q4H [facility] Last Admin: 07/05/18 11:19 Dose: 100 mg Ibuprofen (Motrin Tab) 600 mg PO Q6H PRN PRN Reason: Pain, moderate (4-7) Last Admin: 07/04/18 14:32 Dose: 600 mg Lisinopril (Zestril) 5 mg PO DAILY [facility] Last Admin: 07/05/18 11:15 Dose: 5 mg Lorazepam (Ativan) 1 mg IVP Q6H PRN; Protocol PRN Reason: Seizure activity Last Admin: 06/30/18 08:58 Dose: 1 mg Methylprednisolone (Solu-Medrol) 30 mg IVP DAILY [facility] Last Admin: 07/05/18 11:14 Dose: 30 mg Multivitamins (Thera Tab) 1 tab PO 0800 [facility] Last Admin: 07/05/18 11:16 Dose: 1 tab Nicotine (Nicoderm Cq) 1 patch TD DAILY [facility] Last Admin: 07/05/18 11:14 Dose: 1 patch Pantoprazole Sodium (Protonix Ec Tab) 40 mg PO 0600 [facility] Last Admin: 07/05/18 05:15 Dose: 40 mg Polysaccharide Iron Complex (Ferrex-150) 150 mg PO DAILY [facility] Last Admin: 07/05/18 11:15 Dose: 150 mg Thiamine HCl (Vitamin B1 Tab) 100 mg PO DAILY [facility] Last Admin: 07/05/18 11:15 Dose: 100 mg - Labs Labs: 07/05/18 07:00 07/05/18 07:00 PT 10.8 SECONDS (9.4-12.5) 06/28/18 21:25 INR 0.95 06/28/18 21:25 APTT 28.5 Seconds (25.1-36.5) 06/28/18 21:25 - Constitutional Appears: Well - Head Exam Head Exam: ATRAUMATIC, NORMAL INSPECTION, NORMOCEPHALIC - Eye Exam Eye Exam: EOMI, Normal appearance, PERRL Pupil Exam: NORMAL ACCOMODATION, PERRL - ENT Exam ENT Exam: Mucous Membranes Moist, Normal Exam - Neck Exam Neck Exam: Full ROM, Normal Inspection. absent: Lymphadenopathy - Respiratory Exam Respiratory Exam: Clear to Ausculation Bilateral, NORMAL BREATHING PATTERN - Cardiovascular Exam Cardiovascular Exam: REGULAR RHYTHM, +S1, +S2. absent: Murmur - GI/Abdominal Exam GI & Abdominal Exam: Soft, Normal Bowel Sounds. absent: Tenderness - Rectal Exam Rectal Exam: NORMAL INSPECTION - Exam Exam: Circumcision, NORMAL INSPECTION External exam: NORMAL EXTERNAL EXAM Speculum exam: NORMAL SPECULUM EXAM Bimanual exam: NORMAL BIMANUAL EXAM - Extremities Exam Extremities Exam: Full ROM, Normal Capillary Refill, Normal Inspection. absent: Joint Swelling, Pedal Edema - Back Exam Back Exam: NORMAL INSPECTION - Neurological Exam Neurological Exam: Alert, Awake, CN II-XII Intact, Normal Gait, Oriented x3 - Psychiatric Exam Psychiatric exam: Normal Affect, Normal Mood - Skin Skin Exam: Dry, Intact, Normal Color, Warm Assessment and Plan - Assessment and Plan (Free Text) Assessment: 57F active smoker admitted with COPD exacerbation found to have Step A positive as well as right hilar lung mass. COPD symptoms are improved. Lung mass diff dx includes lung cancer, inflamm, infectious, sarcoid. SOB COPD exacerbation Rule out Lung Ca Atelectasis rule out Endobronchial lesion currently afebrile, BP stable, comfortable in NAD Possible endobronchial lesion with hilar mass, will need repeat CT and possible EBUS As an outpatient, I explained to her she will need a repeat CT Chest in 6-8 weeks If there is no change or increase in her hilar mass, she will likely need EBUS If referral not available, I have provided her the information for [facility] as a safety measure to ensure she does not fall through the cracks The above should be set up via her PMD as an outpatient. She will need outpt PFTs as well For now, - cont Pulmicort 0.5mg BID - Decrease Solumedrol to 40mg daily and stop after total 5 days - abx as per primary team - Madibs PRN - GI ppx - DVT ppx Thank you for the consultation Please re-call if you have any further questions Roosevelt Fox MD Pulm
[2018-07-05 16:32] VITALS: BP 118/80; PULSE 72; TEMP 98.3
--- NOTE | 2018-07-05 17:21 | CP.PCM.DIS ---
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 Referral Routine Comment: Physician Instructions: Reason For Exam: hx copd, etoh, htn Transition In Care/Readmission Reduction Routine Comment: Physician Instructions: Reason For Exam: hx copd, etoh, htn 07/01/18 18:34 Consult [Physician Consult] Routine Comment: Consulting Provider: Jacques Mullins Consulting Physician: Jacques Mullins Reason for Consult: postobstructive ateletasis, wheezing Time Spent in preparation of Discharge (in minutes): 45 Diagnosis - Discharge Diagnosis (1) COPD exacerbation Status: Acute Priority: High (2) Group A streptococcal infection Status: Acute Priority: High (3) HTN (hypertension) Status: Chronic Priority: High (4) Alcohol abuse Status: Acute (5) Tobacco abuse Status: Chronic Priority: High Hospital Course - Lab Results Lab Results: Most Recent Lab Values WBC 10.4 10^3/uL (4.5-11.0) D 07/05/18 07:00 RBC 3.52 10^6/uL (3.5-6.1) 07/05/18 07:00 Hgb 10.7 g/dL (12.0-16.0) L 07/05/18 07:00 Hct 34.6 % (36.0-48.0) L 07/05/18 07:00 MCV 98.3 fl (80.0-105.0) 07/05/18 07:00 MCH 30.4 pg (25.0-35.0) 07/05/18 07:00 MCHC 30.9 g/dl (31.0-37.0) L 07/05/18 07:00 RDW 15.1 % (11.5-14.5) H 07/05/18 07:00 Plt Count 383 10^3/uL (120.0-450.0) 07/05/18 07:00 MPV 8.4 fl (7.0-11.0) 07/05/18 07:00 Gran % 77.9 % (50.0-68.0) H 07/05/18 07:00 Lymph % (Auto) 11.3 % (22.0-35.0) L 07/05/18 07:00 [place] % (Auto) 10.7 % (1.0-6.0) H 07/05/18 07:00 Eos % (Auto) 0.0 % (1.5-5.0) L 07/05/18 07:00 Baso % (Auto) 0.1 % (0.0-3.0) 07/05/18 07:00 Gran # 8.10 (1.4-6.5) H 07/05/18 07:00 Lymph # (Auto) 1.2 (1.2-3.4) 07/05/18 07:00 [place] # (Auto) 1.1 (0.1-0.6) H 07/05/18 07:00 Eos # (Auto) 0.0 (0.0-0.7) 07/05/18 07:00 Baso # (Auto) 0.01 K/mm3 (0.0-2.0) 07/05/18 07:00 Neutrophils % (Manual) 91 % (50.0-70.0) H 06/29/18 06:30 Band Neutrophils % 3 % (0-2) H 06/29/18 06:30 Lymphocytes % (Manual) 2 % (22.0-35.0) L 06/29/18 06:30 Atypical Lymphs % 2 % (0.0-0.0) H 06/29/18 06:30 Monocytes % (Manual) 0 % (1.0-6.0) L 06/29/18 06:30 Basophils % (Manual) 2 % (0.0-1.0) H 06/29/18 06:30 Platelet Evaluation Normal (NORMAL) 06/29/18 06:30 PT 10.8 SECONDS (9.4-12.5) 06/28/18 21:25 INR 0.95 06/28/18 21:25 APTT 28.5 Seconds (25.1-36.5) 06/28/18 21:25 Sodium 136 mmol/L (132-148) 07/05/18 07:00 Potassium 4.5 mmol/L (3.6-5.0) 07/05/18 07:00 Chloride 99 mmol/L (98-107) 07/05/18 07:00 Carbon Dioxide 31 mmol/L (21-33) 07/05/18 07:00 Anion Gap 11 (10-20) 07/05/18 07:00 BUN 30 mg/dL (7-21) H 07/05/18 07:00 Creatinine 0.8 mg/dl (0.7-1.2) 07/05/18 07:00 Est GFR ( Amer) > 60 07/05/18 07:00 Est GFR (Non-Af Amer) > 60 07/05/18 07:00 Random Glucose 81 mg/dL (70-110) 07/05/18 07:00 Calcium 9.8 mg/dL (8.4-10.5) 07/05/18 07:00 Phosphorus 4.6 mg/dL (2.5-4.5) H 06/29/18 06:30 Magnesium 1.7 mg/dL (1.7-2.2) 06/29/18 06:30 Total Bilirubin 0.2 mg/dL (0.2-1.3) 07/05/18 07:00 AST 37 U/L (14-36) H 07/05/18 07:00 ALT 32 U/L (7-56) 07/05/18 07:00 Alkaline Phosphatase 55 U/L (38-126) 07/05/18 07:00 Lactate Dehydrogenase 477 U/L (333-699) 06/28/18 21:25 Total Creatine Kinase 120 U/L (35-230) 06/28/18 21:25 Troponin I < 0.01 ng/mL 06/28/18 21:25 NT-Pro-B Natriuret Pep 36.6 pg/mL (0-450) 06/28/18 21:25 Total Protein 7.3 g/dL (5.8-8.3) 07/05/18 07:00 Albumin 4.0 g/dL (3.0-4.8) 07/05/18 07:00 Globulin 3.3 gm/dL 07/05/18 07:00 Albumin/Globulin Ratio 1.2 (1.1-1.8) 07/05/18 07:00 Alcohol, Quantitative 21 mg/dL (0-10) H 06/28/18 21:05 Influenza Typ A,B (EIA) Negative for flu a/b (NEGATIVE) 06/28/18 21:00 Grp A Beta Strep Ag Positive (NEGATIVE) H 06/28/18 21:12 - Hospital Course Hospital Course: Upon Arrival Pt is a 57yo female with a PMH of anemia, hypertension, COPD (not on home O2), and alcohol abuse; presented to [facility] ED on 06/29 for SOB. She reported SOB and chest tightness this evening w/some episodes of nausea/vomiting (NBNB) as well as stomach pain. She also reported some sore throat and mild cough as well. She reports she takes pulmicort at home as well as inhaler at home. She reported no significant improvement w/ use of her inhaler. Hospitalization Pt was SOB and found to be in a COPD exacerbation. She was placed on O2 NC and Duoneb ALBA and PRN, Pulmicort Q12H, Guaifenesin 100mg PO Q4 and solumedrol 40 Q12H. ECHO EF 64%. Pulmonology consulted, Dr. Cheek; Patient may need bronchoscopy with EBUS, postpone at this time, given active COPD exacerbation with associated bronchospasm. Group A Strep Positive, Influenza a/b Negative. Pt was treated with ceftriaxone and vantin. Discharge Pt advised to please follow up with primary medical doctor, Dr. Mar, within 3-5 days of discharge. You will need a repeat CT of your chest to reassess the hilar mass previously seen on our prior scan within 6-8 weeks. Please follow up with either the Pulmonology clinic at [facility] (referral provided) or with a Casino Gaming Worker recommended by your Primary Care Doctor within 1-2 weeks. You will also need to obtain Pulmonology Function Tests (PFTs) with whichever Pulmonology group you follow up with. Please refrain from any further tobacco and alcohol use. You were given prescriptions for: - Prednisone taper - take as instructed on packet - Vantin 200mg by mouth, twice per day, for 3 more doses - Albuterol inhaler - take only as needed, up to every 6 hours - Advair inhaler - twice per day - Nicotine Patch - Daily These scripts were sent to our in-house pharmacy for availability on discharge. Please fill and take only as prescribed. - Date & Time of H&P Date of H&P: 07/05/18 Time of H&P: 06:00 Discharge Exam - Head Exam Head Exam: ATRAUMATIC, NORMAL INSPECTION, NORMOCEPHALIC - Eye Exam Eye Exam: EOMI - ENT Exam ENT Exam: Mucous Membranes Moist - Respiratory Exam Respiratory Exam: NORMAL BREATHING PATTERN. absent: Accessory Muscle Use, Respiratory Distress - Cardiovascular Exam Cardiovascular Exam: RRR, +S1, +S2. absent: Diastolic murmur, Systolic Murmur - GI/Abdominal Exam GI & Abdominal Exam: Normal Bowel Sounds, Soft, Unremarkable - Extremities Exam Extremities exam: full ROM, pedal pulses present - Neurological Exam Neurological exam: Alert, Oriented x3 - Psychiatric Exam Psychiatric exam: Normal Affect, Normal Mood - Skin Skin Exam: Dry, Intact, Warm Discharge Plan - Discharge Medications Prescriptions: Albuterol Sulfate [Ventolin Hfa] 1 puff IH Q6H PRN #1 inh PRN Reason: Shortness Of Breath Cefpodoxime [Vantin] 200 mg PO BID #3 tab Fluticasone/Salmeterol 250/50 [Advair Diskus] 1 puff IH Q12 #1 inh Nicotine 14 mg/24 hr [Nicoderm CQ] 1 patch TD DAILY #15 patch - Follow Up Plan Condition: STABLE Disposition: HOME/ ROUTINE Instructions: Exacerbation of COPD (DC), Alcohol Abuse and Alcoholism (DC) Additional Instructions: Please follow up with your primary medical doctor, Dr. Mar, within 3-5 days of discharge. You will need a repeat CT of your chest to reassess the hilar mass previously seen on our prior scan within 6-8 weeks. Please follow up with either the Pulmonology clinic at [facility] (referral provided) or with a Casino Gaming Worker recommended by your Primary Care Doctor within 1-2 weeks. You will also need to obtain Pulmonology Function Tests (PFTs) with whichever Pulmonology group you follow up with. Please refrain from any further tobacco and alcohol use. You were given prescriptions for: - Prednisone taper - take as instructed on packet - Vantin 200mg by mouth, twice per day, for 3 more doses - Albuterol inhaler - take only as needed, up to every 6 hours - Advair inhaler - twice per day - Nicotine Patch - Daily These scripts were sent to our in-house pharmacy for availability on discharge. Please fill and take only as prescribed. Please resume all home medications and take as previously prescribed. If you experience new or worsening symptoms, please present to the nearest Emergency Department. Referrals: Pulmonology Clinic, [facility] [Other] Winsome Mar MD [Medical Doctor] -
== END 2018-07-05 18:11 | disposition home or self-care (01) | DRG 140 ==
LOC: ED 20:55 → ERH 23:33 → 3RNO 06-29 01:22 → OBSVTOIN 06-30 12:12
PROVIDERS: ADMIT Internal Medicine; ATTEND Internal Medicine
DX: J44.1 Chronic obstructive pulmonary disease with (acute) exacerbation (principal); I10 Essential (primary) hypertension; J98.11 Atelectasis; D50.9 Iron deficiency anemia, unspecified; F10.10 Alcohol abuse, uncomplicated; J02.0 Streptococcal pharyngitis; B95.0 Streptococcus, group A, as the cause of diseases classified elsewhere; R51 Headache; F17.200 Nicotine dependence, unspecified, uncomplicated; Y90.1 Blood alcohol level of 20-39 mg/100 ml

== ENCOUNTER 2018-08-16 20:24 | Emergency (ER) | payer MEDICAID ==
[2018-08-16 20:25] VITALS: BMI 18.5
[2018-08-16 20:44] VITALS: TEMP 97.3
[2018-08-16] MEDS ORDERED: Albuterol-Ipratrop 3 mg / 0.5 (3 ml) UD IH PRN (20:59)
--- NOTE | 2018-08-16 21:21 | ED PDOC ---
Arrival/HPI - General Historian: Patient - History of Present Illness Narrative History of Present Illness (Text): 08/16/18 21:04 57F w/ past medical history includes anemia, hypertension, COPD (not on home O2), active smoker, and alcohol abuse - recently admitted for COPD exacerbation discharged w/ steroids, abx, ICS, PALMER. During previous admission noted to have obstruction in R Middle Lobe on CT Chest. Recommended to follow up w/ CT Chest w/ IV contrast and EBUS. Patient has not done so. Presenting again tonight for complaints of SOB/ Chest tightness/ wheezing ongoing over the past 2-3 days. Patient reports associated cough productive in nature, no fevers/ chills. Patient reported she is compliant w/ medications takes fluticasone Q12, and PALMER - Ventolin Q4. 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 Remainder 12 system ROS otherwise negative. PMD: Dr. Winsome Mar Pharmacy: [facility] Meds: unknown to patient; PMH: anemia, HTN, COPD, alcohol abuse SH: Daily EtOH 1-2 beers, 80 pack year smoking hx, no illicit drug use Sx: 2 x 30 years ago FH: denies All: antihistimines <Elliot Sotelo - Last Filed: 08/17/18 06:00> <Grant Cosby - Last Filed: 08/20/18 18:31> - General Chief Complaint: Shortness Of Breath Time Seen by Provider: 08/16/18 21:04 Past Medical History - Provider Review Nursing Documentation Reviewed: Yes - Infectious Disease Hx of Infectious Diseases: None - Tetanus Immunization Tetanus Immunization: Unknown - Past Medical History Past Medical History: No Previous - Cardiac Hx Cardiac Disorders: Yes Hx Hypertension: Yes - Pulmonary Hx Chronic Obstructive Pulmonary Disease (COPD): Yes - Neurological Hx Neurological Disorder: No - HEENT Hx HEENT Disorder: No - Renal Hx Renal Disorder: No - Endocrine/Metabolic Hx Endocrine Disorders: No - Hematological/Oncological Hx Blood Disorders: Yes Hx Anemia: Yes - Integumentary Hx Dermatological Disorder: No - Musculoskeletal/Rheumatological Hx Arthritis: Yes Hx Falls: No - Gastrointestinal Hx Gastrointestinal Disorders: No - Genitourinary/Gynecological Hx Genitourinary Disorders: No - Psychiatric Hx Psychophysiologic Disorder: No Hx Substance Use: No - Past Surgical History Past Surgical History: Unable to Obtain - Surgical History Hx Section: Yes - Anesthesia Hx Anesthesia: Yes Hx Anesthesia Reactions: No Hx Malignant Hyperthermia: No - Suicidal Assessment Feels Threatened In Home Enviroment: No <Elliot Sotelo - Last Filed: 08/17/18 06:00> Family/Social History - Physician Review Nursing Documentation Reviewed: Yes Family/Social History: Unknown Family HX Smoking Status: Light Smoker < 10 Cigarettes Daily Hx Alcohol Use: Yes Hx Substance Use: No Hx Substance Use Treatment: No <DeepakElliot - Last Filed: 08/17/18 06:00> Allergies/Home Meds <DeepakElliot - Last Filed: 08/17/18 06:00> <Grant Cosby - Last Filed: 08/20/18 18:31> Allergies/Adverse Reactions: Allergies Antihistamines - Alkylamine Allergy (Unknown, Verified 06/29/18 05:19) RASH patient states an MD told her after an allergy test that she was allergic to antihistamine. She states that she never had a drug reaction Review of Systems - Review of Systems Constitutional: Normal Eyes: Normal ENT: Normal Respiratory: SOB, Cough, Sputum, Wheezing Cardiovascular: Normal Gastrointestinal: Normal Genitourinary Female: Normal Musculoskeletal: Normal Skin: Normal Neurological: Normal Endocrine: Normal Hemo/Lymphatic: Normal Psychiatric: Normal <Elliot Sotelo - Last Filed: 08/17/18 06:00> Physical Exam Vital Signs Temp Pulse Resp BP Pulse Ox 08/16/18 20:32 97.3 F L 91 H 18 116/77 95 Temperature: Afebrile Blood Pressure: Normal Pulse: Regular Respiratory Rate: Normal Appearance: Positive for: Well-Appearing, Non-Toxic, Comfortable Pain Distress: None Mental Status: Positive for: Alert and Oriented X 3 - Systems Exam Head: Present: Atraumatic, Normocephalic Pupils: Present: PERRL Extroacular Muscles: Present: EOMI Conjunctiva: Present: Normal Mouth: Present: Moist Mucous Membranes Neck: Present: Normal Range of Motion Respiratory/Chest: Present: Wheezes, Rhonchi, Other (Increased expiratory phase) Cardiovascular: Present: Regular Rate and Rhythm, Normal S1, S2. No: Murmurs Abdomen: No: Tenderness, Distention, Peritoneal Signs Back: Present: Normal Inspection Upper Extremity: Present: Normal Inspection. No: Cyanosis, Edema Lower Extremity: Present: Normal Inspection. No: Edema Neurological: Present: GCS=15, CN II-XII Intact, Speech Normal Skin: Present: Warm, Dry, Normal Color. No: Rashes Psychiatric: Present: Alert, Oriented x 3, Normal Insight, Normal Concentration <Elliot Sotelo - Last Filed: 08/17/18 06:00> Vital Signs Temp Pulse Resp BP Pulse Ox 08/16/18 20:32 97.3 F L 91 H 18 116/77 95 <Grant Cosby - Last Filed: 08/20/18 18:31> Medical Decision Making ED Course and Treatment: 08/16/18 21:53 Impression: 57F w/ recurrent COPD exacerbation, homlessness, continues to smoke, questionable lung mass w/o appropriate follow up. Presenting for Chest tightness, wheezing, SOB. Most likely having COPD exacerbation at this time. Plan: CBC CMP EtOH Level Drug Tox Trop ABG Rapid Flu Duoneb Q15 PRN O2 NC PRN Progress Notes: 08/17/18 06:00 Patient tolerated DUONEB well; significant improvement in symptoms/ wheezing. Will administer one more duoneb and DC patient w/ LAMA as well as appropriate follow up instructions. - Medication Orders Current Medication Orders: Albuterol/Ipratropium (Duoneb 3 Mg/0.5 Mg (3 Ml) Ud) 3 ml IH Q15M PRN PRN Reason: Shortness of Breath Stop: 08/16/18 21:31 Discontinued Medications Methylprednisolone (Solu-Medrol) 125 mg IVP STAT STA Stop: 08/16/18 21:00 <Elliot Sotelo - Last Filed: 08/17/18 06:00> ED Course and Treatment: Impression: Pt seen and evaluated with medical insurance collector. Aware and agree with HPI, clinical findings, plan, and management. Pt, whose past medical history includes anemia, hypertension, COPD, and alcohol/tobacco abuse, presented for shortness of breath, wheezing, chest tightness, and cough. Plan: -- Labs, troponin, ABG -- Rapid influenza -- Urine drug screen -- Solu-medrol -- Duoneb -- Reassess and disposition 08/17/18 01:35 CT Chest: Moderate centrilobular pulmonary emphysema. Chronic subsegmental atelectatic airspace disease in the right middle lobe. Normal enhancement of the main pulmonary artery and right and left pulmonary arteries. Normal enhancement of the bilateral peripheral pulmonary arteries. There is no demonstrated pulmonary embolism. Normal thoracic aorta and visualized great vessels. There is no demonstrated aortic dissection. Normal heart and pericardium. Normal mediastinum. Normal hilar regions. Normal visualized trachea and thickened bronchi. Normal pleura. Normal chest wall structures. Mild benign chronic compression deformities of the lower thoracic vertebral bodies. Normal visualized upper abdomen. IMPRESSION: No demonstrated pulmonary embolism or arterial dissection. Chronic bronchitis/emphysema. Subsegmental atelectatic airspace disease in the right middle lobe. Electronically signed on Aug 17, 2018 1:34:06 AM EST by: Maria Luz Chong M.D., Certified by ABR, MSK, Neuroradiology - Lab Interpretations Lab Results: Troponin I < 0.01 ng/mL 08/16/18 21:40 Total Bilirubin 0.2 mg/dL (0.2-1.3) 08/16/18 21:40 AST 37 U/L (14-36) H 08/16/18 21:40 ALT 10 U/L (7-56) 08/16/18 21:40 Alkaline Phosphatase 68 U/L (38-126) 08/16/18 21:40 Total Protein 7.6 g/dL (5.8-8.3) 08/16/18 21:40 Albumin 4.3 g/dL (3.0-4.8) 08/16/18 21:40 Globulin 3.3 gm/dL 08/16/18 21:40 Albumin/Globulin Ratio 1.3 (1.1-1.8) 08/16/18 21:40 - Medication Orders Current Medication Orders: Discontinued Medications Albuterol/Ipratropium (Duoneb 3 Mg/0.5 Mg (3 Ml) Ud) 3 ml IH Q15M PRN PRN Reason: Shortness of Breath Stop: 08/16/18 21:31 Last Admin: 08/16/18 22:11 Dose: 3 ml Methylprednisolone (Solu-Medrol) 125 mg IVP STAT STA Stop: 08/16/18 21:00 Last Admin: 08/16/18 21:42 Dose: 125 mg IVP Administration Document 08/16/18 21:42 EB (Rec: 08/16/18 21:42 [id number] Charges for Administration # of IVP Administrations 1 <AleaGrant - Last Filed: 08/20/18 18:31> - PA / WET MACHINE CUTTER / Resident Statement [facility]IA has reviewed & agrees with the documentation as recorded. ADIA has examined the patient and agrees with the treatment plan. <AleaGrant - Last Filed: 08/20/18 18:31> Disposition/Present on Arrival - Present on Arrival Any Indicators Present on Arrival: No History of DVT/PE: No History of Uncontrolled Diabetes: No Urinary Catheter: No History of Decub. Ulcer: No History Surgical Site Infection Following: Orthopedic Procedures - Disposition Have Diagnosis and Disposition been Completed?: Yes Disposition Time: 06:16 Patient Plan: Discharge <Elliot Sotelo - Last Filed: 08/17/18 06:00> <Grant Cosby - Last Filed: 08/20/18 18:31> - Disposition Diagnosis: COPD exacerbation Disposition: HOME/ ROUTINE Condition: STABLE Discharge Instructions (ExitCare): Chronic Obstructive Pulmonary Disease (COPD), Including Emphysema, COPD Including Emphysema (DC) Additional Instructions: TAKE YOUR STEROIDS DAILY TAKE YOUR SPIRIVA 2 PUFF DAILY TAKE YOUR ADVAIR TWICE A DAILY USE YOUR VENTOLIN NEEDED FOR SHORTNESS OF BREATH PLEASE FOLLOW UP WITH YOUR POOL PLAYER WITHIN 1 DAY OF DISCHARGE PLEASE FOLLOW UP WITH YOUR PRIMARY CARE DOCTOR WITHIN 1 DAY OF DISCHARGE DONOVAN DIALLO, thank you for letting us take care of you today. Your provider was Grant Cosby MD / Elliot Sotelo DO and you were treated for COPD. The emergency medical care you received today was directed at your acute symptoms. If you were prescribed any medication, please fill it and take as directed. It may take several days for your symptoms to resolve. Return to the Emergency Department if your symptoms worsen, do not improve, or if you have any other problems. Please contact your doctor or call one of the physicians/clinics you have been referred to that are listed on the Patient Visit Information form that is included in your discharge packet. Bring any paperwork you were given at discharge with you along with any medications you are taking to your follow up visit. Our treatment cannot replace ongoing medical care by a primary care provider outside of the emergency department. Thank you for allowing the [facility] team to be part of your care today. If you had an X-Ray or CT scan: A Radiologist will review the ED reading if any change in treatment is needed we will contact you. If you had a blood, urine, or wound culture: It will take several days for the results, if any change in treatment is needed we will contact you. If you had an STI test: It will take 48 hours for the results. Please call after 1 week if you have not heard back. Prescriptions: Prednisone 50 mg PO DAILY #5 tablet Tiotropium [Spiriva] 18 mcg IH DAILY #14 cap Tiotropium [place] Inhaler [Spiriva Inhalation Handihaler Device] 1 inhaler .ROUTE ONCE #1 inhaler Referrals: Winsome Mar MD [Primary Care Provider] - Follow up with primary Sola Gonsalez MD [Medical Doctor] - Follow up with primary Jacques Mullins MD [Staff Provider] - Follow up with primary Crys Fox MD [Staff Provider] - Follow up with primary Forms: [employer] ([employer])
[2018-08-16 22:02] LABS: ALB/GLOB RATIO 1.3 (1.1-1.8); ALBUMIN 4.3 g/dL (3.0-4.8); ALT/SGPT 10 U/L (7-56); AST/SGOT 37 U/L (14-36); BLOOD UREA NITROGEN 14 mg/dL (7-21); CALCIUM 9.7 mg/dL (8.4-10.5); GFR NON-AFRICAN AMERICAN > 60
[2018-08-16 22:13] LABS: TROPONIN I < 0.01 ng/mL
[2018-08-16] MEDS ORDERED: Potassium Chloride 20 mEq ER Tab PO STA (22:16)
[2018-08-16 22:28] LABS: BARBITURATES, UR NEGATIVE (NEGATIVE); BENZODIAZEPINES, UR NEGATIVE (NEGATIVE); OPIATES, UR NEGATIVE (NEGATIVE); PHENCYCLIDINE, UR NEGATIVE (NEGATIVE)
[2018-08-16 23:08] LABS: ARTERIAL BLOOD GAS HCO3 22.8 mmol/L (21-28); ARTERIAL BLOOD GAS HEMOGLOBIN 9.4 g/dL (11.7-17.4); ARTERIAL BLOOD GAS O2 CAPACITY 12.5 mL/dl (16-24); ARTERIAL BLOOD GAS O2 SAT 95.8 % (95-98); ARTERIAL BLOOD GAS PCO2 36 mm/Hg (35-45); ARTERIAL BLOOD GAS PH 7.41 (7.35-7.45); ARTERIAL BLOOD GAS TCO2 23.9 mmol.L (22-28)
[2018-08-16] MEDS ORDERED: Iohexol 350 MG/100 ML VIAL ONE (23:11)
[2018-08-17 03:40] VITALS: RESP 17; O2SAT 100
[2018-08-17 05:52] VITALS: BP 117/75; PULSE 85
[2018-08-17] MEDS ORDERED: Albuterol-Ipratrop 3 mg / 0.5 (3 ml) UD IH STA (06:05)
--- NOTE | 2018-08-17 08:21 | CT ---
Date of service: 08/17/2018 PROCEDURE: CT Chest with contrast HISTORY: previously noted RMLB Mass + COPD sx COMPARISON: Noncontrast chest CT 07/01/2018. TECHNIQUE: Contiguous axial images were obtained through the chest with intravenous contrast enhancement. Sagittal and coronal reconstructions were performed. IV contrast: Omnipaque 350, 100 cc Radiation dose: Total exam DLP = 175.01 mGy-cm. This CT exam was performed using one or more of the following dose reduction techniques: Automated exposure control, adjustment of the mA and/or kV according to patient size, and/or use of iterative reconstruction technique. FINDINGS: LUNGS: There is hyperinflation once again. Fibrosis and volume loss of the right middle lobe is identified with stable bulla at the right lower lobe again evident, stable. Central airway lesion less apparent currently at the right middle lobe with resolution of postobstructive atelectasis. Underlying lesion remains difficult to exclude. Linear atelectasis or fibrosis reiterated the lingula. Linear atelectasis left lower lobe resolved. MEDIASTINUM: Unremarkable thoracic aorta. No aneurysm or dissection. Normal sized heart. Coronary artery calcifications again identified. Main pulmonary artery unremarkable. No vascular congestion. No significant lymphadenopathy. Calcific atherosclerotic changes are seen related to the thoracic and abdominal aorta. PLEURA: No pleural fluid. No pneumothorax. BONES: Stable L1 anterior wedge compression fracture, mild. UPPER ABDOMEN: Grossly unremarkable. OTHER FINDINGS: None. IMPRESSION: 1. Limited volume loss and fibrosis or linear atelectasis right middle lobe with prior endoluminal pathology not identified currently by CT criteria. This argues against neoplasm though bronchoscopy is more definitive. 2. Linear atelectasis or fibrosis minimally affects the lingula once again. 3. COPD reiterated. 4. No acute infiltrate, pleural effusion or pneumothorax identified. Preliminary report provided by Amarilis, 08/17/2018, 1:34 a.m..
--- NOTE | 2018-08-17 09:18 | CARD ---
APPROVED REPORT Date of service: 08/16/2018 EKG Measurement Heart [id number] <Conclusion> Normal sinus rhythm Biatrial enlargement Rightward axis Anteroseptal infarct, age undetermined Abnormal ECG
== END 2018-08-17 06:39 | disposition home or self-care (01) ==
LOC: ED 20:24
DX: J44.1 Chronic obstructive pulmonary disease with (acute) exacerbation (principal); F17.210 Nicotine dependence, cigarettes, uncomplicated; I10 Essential (primary) hypertension
CPT/HCPCS: 71260; 80053; 80320; 80324; 80345; 80346; 80349; 80353; 80358; 80361; 82803; 83992; 84484; 87804; 93005; 96374; 99284; J2930; Q9967

== ENCOUNTER 2018-08-21 15:45 | Emergency (ER) | payer MEDICAID, OTHER ==
[2018-08-21 16:09] VITALS: BMI 21.4
[2018-08-21 16:18] VITALS: RESP 18
--- NOTE | 2018-08-21 16:36 | ED PDOC ---
Arrival/HPI - General Chief Complaint: Alcohol Ingestion Time Seen by Provider: 08/21/18 15:47 Historian: Patient, Police - History of Present Illness Narrative History of Present Illness (Text): 08/21/18 16:33 57 year old female, whose past medical history includes COPD, smoking and alcohol abuse, brought in to the emergency department by police for alcohol intoxication today. Patient denies any trauma or injury. Patient admits to drinking alcohol today, but denies any drug use. She states she is homeless and has no where to stay. Patient denies any complaints at this time. Patient denies any fever, chills, chest pain, shortness of breath, nausea, vomiting, diarrhea, urinary symptoms, back pain, neck pain, headache, dizziness, or any other complaints. Symptom Onset: Gradual Activities at Onset: Light Context: Street Past Medical History - Provider Review Nursing Documentation Reviewed: Yes - Infectious Disease Hx of Infectious Diseases: None - Tetanus Immunization Tetanus Immunization: Unknown - Past Medical History Past Medical History: No Previous - Cardiac Hx Cardiac Disorders: Yes Hx Hypertension: Yes - Pulmonary Hx Chronic Obstructive Pulmonary Disease (COPD): Yes - Neurological Hx Neurological Disorder: No - HEENT Hx HEENT Disorder: No - Renal Hx Renal Disorder: No - Endocrine/Metabolic Hx Endocrine Disorders: No - Hematological/Oncological Hx Blood Disorders: Yes Hx Anemia: Yes - Integumentary Hx Dermatological Disorder: No - Musculoskeletal/Rheumatological Hx Arthritis: Yes Hx Falls: No - Gastrointestinal Hx Gastrointestinal Disorders: No - Genitourinary/Gynecological Hx Genitourinary Disorders: No - Psychiatric Hx Psychophysiologic Disorder: No Hx Substance Use: No - Past Surgical History Past Surgical History: Unable to Obtain - Surgical History Hx Section: Yes - Anesthesia Hx Anesthesia: Yes Hx Anesthesia Reactions: No Hx Malignant Hyperthermia: No - Suicidal Assessment Feels Threatened In Home Enviroment: No Family/Social History - Physician Review Nursing Documentation Reviewed: Yes Family/Social History: No Known Family HX Smoking Status: Current Some Days Smoker Hx Alcohol Use: Yes Hx Substance Use: No Hx Substance Use Treatment: No Allergies/Home Meds Allergies/Adverse Reactions: Allergies Antihistamines - Alkylamine Allergy (Unknown, Verified 06/29/18 05:19) RASH patient states an MD told her after an allergy test that she was allergic to antihistamine. She states that she never had a drug reaction Review of Systems - Physician Review All systems were reviewed & negative as marked: Yes - Review of Systems Constitutional: absent: Fevers, Other (chills) Respiratory: absent: SOB Cardiovascular: absent: Chest Pain Gastrointestinal: absent: Diarrhea, Nausea, Vomiting Genitourinary Female: absent: Dysuria, Frequency, Hematuria Musculoskeletal: absent: Back Pain, Neck Pain Neurological: absent: Headache, Dizziness Physical Exam Vital Signs Reviewed: Yes Vital Signs Temp Pulse Resp BP Pulse Ox 08/21/18 16:17 98.4 F 89 18 117/74 99 Temperature: Afebrile Blood Pressure: Normal Pulse: Regular Respiratory Rate: Normal Appearance: Positive for: Well-Appearing, Non-Toxic, Comfortable Pain Distress: None Mental Status: Positive for: Alert and Oriented X 3 - Systems Exam Head: Present: Atraumatic, Normocephalic Pupils: Present: PERRL Extroacular Muscles: Present: EOMI Conjunctiva: Present: Normal Neck: Present: Normal Range of Motion Respiratory/Chest: Present: Clear to Auscultation, Good Air Exchange. No: Respiratory Distress, Accessory Muscle Use Cardiovascular: Present: Regular Rate and Rhythm, Normal S1, S2. No: Murmurs Abdomen: No: Tenderness, Distention, Peritoneal Signs Upper Extremity: Present: Normal Inspection, Capillary Refill < 2s (to fingers). No: Cyanosis, Edema Lower Extremity: Present: Normal Inspection, Capillary Refill < 2 s (to toes ). No: Edema Neurological: Present: GCS=15, Speech Normal Skin: Present: Warm, Dry, Normal Color. No: Rashes Psychiatric: Present: Alert, Oriented x 3, Intoxicated Medical Decision Making ED Course and Treatment: 08/21/18 16:33 Impression: 57 year old female presents by police for alcohol intoxication today. Plan: -- Observation for sobriety -- Reassess and disposition Prior Visits: Notes and results from previous visits were reviewed. Progress Notes: 08/21/18 18:02 pt reassessment: pt sleeping in er; no distress. 08/21/18 19:24 pt reassessment; resting comfortably no distress. case signed out to dr. kwon pending sobriety - Scribe Statement The provider has reviewed the documentation as recorded by the Scribe Maria R Alfaro Provider Scribe Attestation: All medical record entries made by the Scribe were at my direction and personally dictated by me. I have reviewed the chart and agree that the record accurately reflects my personal performance of the history, physical exam, medical decision making, and the department course for this patient. I have also personally directed, reviewed, and agree with the discharge instructions and disposition. Disposition/Present on Arrival - Present on Arrival Any Indicators Present on Arrival: No History of DVT/PE: No History of Uncontrolled Diabetes: No Urinary Catheter: No History of Decub. Ulcer: No - Disposition Have Diagnosis and Disposition been Completed?: Yes Diagnosis: Alcohol abuse Disposition: HOSPITALIZED Disposition Time: 19:24 Patient Plan: Discharge Condition: GOOD Discharge Instructions (ExitCare): Alcohol Abuse and Alcoholism (DC) Print Language: CITIZEN OF [place] Additional Instructions: Follow up with the primary care physician within the next 2 days Return if symptoms worsen,persist or if new symptoms develop. Referrals: [facility] at [facility] [place] [Outside] - Follow up with primary Sola Gonsalez MD [Medical Doctor] - Follow up with primary Forms: [facility] [facility] ([place] Citizen)
--- NOTE | 2018-08-21 19:25 | ED PDOC ---
Physical Exam Vital Signs Reviewed: Yes Vital Signs Temp Pulse Resp BP Pulse Ox 08/21/18 16:17 98.4 F 89 18 117/74 99 Temperature: Afebrile Blood Pressure: Normal Pulse: Regular Respiratory Rate: Normal Appearance: Positive for: Well-Appearing Mental Status: Positive for: Alert and Oriented X 3 Medical Decision Making ED Course and Treatment: 08/21/18 19:23 Signout received from Fuad. Will reevaluate pending clinical sobriety. 08/22/18 06:04 Patient awakened and shows no signs of tremulousness. She is stable for discharge. Disposition/Present on Arrival - Present on Arrival Any Indicators Present on Arrival: No History of DVT/PE: No History of Uncontrolled Diabetes: No Urinary Catheter: No History of Decub. Ulcer: No History Surgical Site Infection Following: Orthopedic Procedures - Disposition Have Diagnosis and Disposition been Completed?: Yes Diagnosis: Alcohol abuse Disposition Time: 06:06 Patient Plan: Discharge Patient Problems: Current Active Problems Problem Status Onset Alcohol abuse Acute Condition: GOOD Discharge Instructions (ExitCare): Alcohol Abuse and Alcoholism (DC) Print Language: CITIZEN OF [place] Additional Instructions: Follow up with the primary care physician within the next 2 days Return if symptoms worsen,persist or if new symptoms develop. Referrals: Sola Gonsalez MD [Medical Doctor] - Follow up with primary [facility] at [facility] [place] [Outside] - Follow up with primary Forms: [employer] ([place])
[2018-08-22 06:15] VITALS: BP 125/72; PULSE 88; TEMP 98.1; O2SAT 98
== END 2018-08-22 06:14 | disposition home or self-care (01) ==
LOC: ED 15:45
DX: F10.10 Alcohol abuse, uncomplicated (principal)

== ENCOUNTER 2018-09-02 03:41 | Emergency (ER) | payer OTHER ==
[2018-09-02 03:50] VITALS: BMI 18.8
[2018-09-02 04:02] VITALS: RESP 18; TEMP 97.6; O2SAT 100
--- NOTE | 2018-09-02 04:13 | ED PDOC ---
Arrival/HPI - General Historian: Patient - Critical Care Critical Care Minutes: 45 minutes - History of Present Illness Narrative History of Present Illness (Text): 09/02/18 04:11 57 year old female with a past medical history of anemia, hypertension, copd, and etoh abuse presents to the e.d. reporting left lower abdominal quadrant cramping that began about two hours ago. Per EMS, patient was brought in after being intoxicated in front of the supermarket. Patient reports the pain as sharp in nature with no radiation. She rates the pain a 6/10 in severity. Patient denies any fevers, chills, chest pain, shortness of breath, nausea, vomiting, headaches, or any other complaints. PMD: Dr. Winsome Mar PMH: anemia, HTN, COPD, alcohol abuse SH: drinks 3-5 beers per week, sometimes "more" for many years, smokes 1/2 ppd for 40 years, denies drug use Sx: 2 x 30 years ago FH: denies Time/Duration: 4-6 hours Symptom Onset: Sudden Symptom Course: Unchanged Quality: Other Severity Level: 6 Activities at Onset: Rest Context: Sitting, Walking Past Medical History - Provider Review Nursing Documentation Reviewed: Yes - Infectious Disease Hx of Infectious Diseases: None - Tetanus Immunization Tetanus Immunization: Unknown - Past Medical History Past Medical History: No Previous - Cardiac Hx Cardiac Disorders: Yes Hx Hypertension: Yes - Pulmonary Hx Chronic Obstructive Pulmonary Disease (COPD): Yes - Neurological Hx Neurological Disorder: No - HEENT Hx HEENT Disorder: No - Renal Hx Renal Disorder: No - Endocrine/Metabolic Hx Endocrine Disorders: No - Hematological/Oncological Hx Blood Disorders: Yes Hx Anemia: Yes - Integumentary Hx Dermatological Disorder: No - Musculoskeletal/Rheumatological Hx Arthritis: Yes Hx Falls: No - Gastrointestinal Hx Gastrointestinal Disorders: No - Genitourinary/Gynecological Hx Genitourinary Disorders: No - Psychiatric Hx Psychophysiologic Disorder: No Hx Substance Use: No - Past Surgical History Past Surgical History: Unable to Obtain - Surgical History Hx Section: Yes - Anesthesia Hx Anesthesia: Yes Hx Anesthesia Reactions: No Hx Malignant Hyperthermia: No - Suicidal Assessment Feels Threatened In Home Enviroment: No Family/Social History - Physician Review Nursing Documentation Reviewed: Yes Family/Social History: No Known Family HX Smoking Status: Current Some Days Smoker Hx Alcohol Use: Yes Hx Substance Use: No Hx Substance Use Treatment: No Allergies/Home Meds Allergies/Adverse Reactions: Allergies Antihistamines - Alkylamine Allergy (Unknown, Verified 06/29/18 05:19) RASH patient states an MD told her after an allergy test that she was allergic to antihistamine. She states that she never had a drug reaction Review of Systems - Physician Review All systems were reviewed & negative as marked: Yes - Review of Systems Constitutional: Normal. absent: Fatigue, Weight Change Eyes: Normal. absent: Vision Changes, Photophobia ENT: Normal. absent: Hearing Changes, Rhinorrhea Respiratory: Normal. absent: SOB, Cough Cardiovascular: Normal. absent: Chest Pain, Syncope Gastrointestinal: Abdominal Pain. absent: Constipation, Diarrhea, Hematochezia, Hematemesis Genitourinary Female: Normal. absent: Vaginal Discharge Musculoskeletal: Normal. absent: Arthralgias, Back Pain Skin: Normal. absent: Rash Neurological: Normal. absent: Headache Endocrine: Normal. absent: Diaphoresis Hemo/Lymphatic: Normal. absent: Adenopathy Psychiatric: Normal. absent: Anxiety Physical Exam Vital Signs Reviewed: Yes Vital Signs Temp Pulse Resp BP Pulse Ox 09/02/18 04:01 97.6 F 67 18 149/80 100 Temperature: Afebrile Blood Pressure: Normal Pulse: Regular Respiratory Rate: Normal Appearance: Positive for: Well-Appearing, Non-Toxic, Comfortable Pain Distress: None Mental Status: Positive for: Alert and Oriented X 3 - Systems Exam Head: Present: Atraumatic, Normocephalic Pupils: Present: PERRL. No: Sluggish Extroacular Muscles: Present: EOMI. No: Gaze Palsy Conjunctiva: Present: Normal. No: Injected Mouth: Present: Moist Mucous Membranes. No: Normal Teeth Neck: Present: Normal Range of Motion Respiratory/Chest: Present: Wheezes. No: Good Air Exchange, Respiratory Distress Cardiovascular: Present: Regular Rate and Rhythm, Normal S1, S2. No: Tachycardic Abdomen: Present: Normal Bowel Sounds Upper Extremity: Present: Normal Inspection, Edema. No: Cyanosis, Erythema Lower Extremity: Present: Normal Inspection Neurological: Present: CN II-XII Intact, Speech Normal Skin: Present: Dry, Normal Color Psychiatric: Present: Oriented x 3, Normal Insight Medical Decision Making ED Course and Treatment: 09/02/18 04:17 57 year old female presents to the e.d. for lower left quadrant abdominal pain. Plan: -CBC/CMP -Ab/pelvis ct w/iv contrast -Duonebs -IV solumedrol 09/02/18 06:53 Ab/pelvis ct: colonic diverticulosis and constipation Patient re-evaluated and stable for discharge. Disposition/Present on Arrival - Present on Arrival Any Indicators Present on Arrival: No History of DVT/PE: No History of Uncontrolled Diabetes: No Urinary Catheter: No History of Decub. Ulcer: No History Surgical Site Infection Following: None - Disposition Have Diagnosis and Disposition been Completed?: Yes Diagnosis: Constipation Disposition: HOME/ ROUTINE Disposition Time: 06:52 Patient Plan: Discharge Patient Problems: Current Active Problems Problem Status Onset Constipation Acute Condition: IMPROVED Additional Instructions: 1.F/u with PMD within 5 days of discharge. 2.Return to hospital for any new or worsening symptoms.
[2018-09-02] MEDS ORDERED: Albuterol-Ipratrop 3 mg / 0.5 (3 ml) UD IH STA (04:19)
[2018-09-02] MEDS ORDERED: Albuterol-Ipratrop 3 mg / 0.5 (3 ml) UD ONE (04:35)
[2018-09-02 05:03] LABS: BASO # 0.09 K/mm3 (0.0-2.0); BASO % 1.3 % (0.0-3.0); EOS # 0.3 (0.0-0.7); EOS % 4.3 % (1.5-5.0); HEMOGLOBIN 10.8 g/dL (12.0-16.0); LYMPH # 1.5 (1.2-3.4); LYMPH % 21.1 % (22.0-35.0); MEAN CELL VOLUME 93.9 fl (80.0-105.0); MEAN CORPUSCULAR HEMOGLOBIN 28.6 pg (25.0-35.0); MEAN CORPUSCULAR HGB CONC 30.5 g/dl (31.0-37.0); MEAN PLATELET VOLUME 8.4 fl (7.0-11.0); MONO % 14.3 % (1.0-6.0); RBC 3.77 10^6/uL (3.5-6.1)
[2018-09-02 05:08] LABS: ALB/GLOB RATIO 1.2 (1.1-1.8); ALBUMIN 4.1 g/dL (3.0-4.8); ALT/SGPT 12 U/L (7-56); AST/SGOT 33 U/L (14-36); BLOOD UREA NITROGEN 11 mg/dL (7-21); CALCIUM 9.5 mg/dL (8.4-10.5); GFR NON-AFRICAN AMERICAN > 60
[2018-09-02] MEDS ORDERED: Iohexol 350 MG/100 ML VIAL ONE (05:25)
[2018-09-02 07:01] VITALS: BP 137/85; PULSE 70
--- NOTE | 2018-09-02 08:23 | CT ---
Date of service: 09/02/2018 PROCEDURE: CT Abdomen and Pelvis with contrast HISTORY: llq pain COMPARISON: None. TECHNIQUE: Intravenous contrast dose: 100 cc Omnipaque 350. Radiation dose: Total exam DLP = 196.42 mGy-cm. This CT exam was performed using one or more of the following dose reduction techniques: Automated exposure control, adjustment of the mA and/or kV according to patient size, and/or use of iterative reconstruction technique. FINDINGS: LOWER THORAX: Unremarkable. LIVER: Unremarkable. No gross lesion or ductal dilatation. GALLBLADDER AND BILE DUCTS: Unremarkable. PANCREAS: Unremarkable. No gross lesion or ductal dilatation. SPLEEN: Unremarkable. ADRENALS: Unremarkable. No mass. KIDNEYS AND URETERS: Unremarkable. No hydronephrosis. No solid mass. VASCULATURE: Unremarkable. No aortic aneurysm. Atherosclerotic calcification and mural plaque present. Findings are seen throughout the aorta BOWEL: Unremarkable. No obstruction. No gross mural thickening. APPENDIX: Normal appendix. PERITONEUM: Unremarkable. No free fluid. No free air. LYMPH NODES: Unremarkable. No enlarged lymph nodes. BLADDER: Unremarkable. REPRODUCTIVE: Unremarkable. BONES: No acute fracture. Multilevel degenerative changes primarily disc space narrowing. Vacuum disc phenomenon noted multiple levels as well. OTHER FINDINGS: None. IMPRESSION: No significant or acute findings to account for/ related to the clinical presentation. Additional benign and/or incidental findings described above.
== END 2018-09-02 07:00 | disposition home or self-care (01) ==
LOC: ED 03:41
DX: K59.00 Constipation, unspecified (principal); I10 Essential (primary) hypertension; D64.9 Anemia, unspecified; F17.210 Nicotine dependence, cigarettes, uncomplicated
CPT/HCPCS: 74177; 80053; 80320; 85025; 96374; 99283; J2930; Q9967

== ENCOUNTER 2018-09-21 21:52 | Emergency (ER) | payer OTHER ==
[2018-09-21 21:59] VITALS: BMI 23.3
--- NOTE | 2018-09-21 22:26 | ED PDOC ---
Arrival/HPI - General Historian: Patient EM Caveat: Intoxicated - History of Present Illness Narrative History of Present Illness (Text): 09/21/18 22:16 57 y/o female, pmh including htn/anemia/copd, allergic to antihistamines- alkylamine?, post menopausal, biba for etoh intoxication. Pt. stated that she feels well, just wanna sleep, no fall or trauma, no headache/neck/back/extremity pain or injury, no rash, no dizziness, no change in vision, no numbness or tingling, no homocidal/suicidal ideation, no auditory or visual hallucination. <Víctor Millard - Last Filed: 09/22/18 01:19> <Alexys Marti - Last Filed: 09/22/18 06:10> - General Chief Complaint: Alcohol Ingestion Time Seen by Provider: 09/21/18 22:12 Past Medical History - Provider Review Nursing Documentation Reviewed: Yes - Infectious Disease Hx of Infectious Diseases: None - Tetanus Immunization Tetanus Immunization: Unknown - Past Medical History Past Medical History: No Previous - Cardiac Hx Cardiac Disorders: Yes Hx Hypertension: Yes - Pulmonary Hx Chronic Obstructive Pulmonary Disease (COPD): Yes - Neurological Hx Neurological Disorder: No - HEENT Hx HEENT Disorder: No - Renal Hx Renal Disorder: No - Endocrine/Metabolic Hx Endocrine Disorders: No - Hematological/Oncological Hx Blood Disorders: Yes Hx Anemia: Yes - Integumentary Hx Dermatological Disorder: No - Musculoskeletal/Rheumatological Hx Arthritis: Yes Hx Falls: No - Gastrointestinal Hx Gastrointestinal Disorders: No - Genitourinary/Gynecological Hx Genitourinary Disorders: No - Psychiatric Hx Psychophysiologic Disorder: No Hx Substance Use: No - Past Surgical History Past Surgical History: Unable to Obtain - Surgical History Hx Section: Yes - Anesthesia Hx Anesthesia: Yes Hx Anesthesia Reactions: No Hx Malignant Hyperthermia: No - Suicidal Assessment Feels Threatened In Home Enviroment: No <Víctor Millard - Last Filed: 09/22/18 01:19> Family/Social History - Physician Review Nursing Documentation Reviewed: Yes Family/Social History: Unknown Family HX Smoking Status: Current Some Days Smoker Hx Alcohol Use: Yes Hx Substance Use: No Hx Substance Use Treatment: No <Víctor Millard - Last Filed: 09/22/18 01:19> Allergies/Home Meds <Víctor Millard - Last Filed: 09/22/18 01:19> <Alexys Marti - Last Filed: 09/22/18 06:10> Allergies/Adverse Reactions: Allergies Antihistamines - Alkylamine Allergy (Unknown, Verified 09/21/18 21:58) RASH patient states an MD told her after an allergy test that she was allergic to antihistamine. She states that she never had a drug reaction Review of Systems - Review of Systems Constitutional: absent: Fatigue, Fevers Eyes: absent: Vision Changes, Photophobia ENT: absent: Hearing Changes Respiratory: absent: SOB, Cough Cardiovascular: absent: Chest Pain Gastrointestinal: absent: Abdominal Pain, Diarrhea, Nausea, Vomiting Musculoskeletal: absent: Arthralgias, Back Pain Skin: absent: Rash, Pruritis Neurological: absent: Headache, Dizziness Psychiatric: absent: Anxiety, Depression, Suicidal Ideation <Víctor Millard - Last Filed: 09/22/18 01:19> Physical Exam Finger Stick Blood Glucose: 93 - Systems Exam Head: Present: Atraumatic, Normocephalic, Other (no facial bony tenderness). No: Tenderness, Contusion, Swelling, Ecchymosis, Abrasion, Laceration Pupils: Present: PERRL Extroacular Muscles: Present: EOMI Conjunctiva: Present: Normal Ears: Present: NORMAL TM, Normal Canal. No: Erythema Mouth: Present: Moist Mucous Membranes Pharnyx: No: ERYTHEMA, EXUDATE, TONSILS ENLARGED, Peritonsilar Swelling, Uvular Deviation Nose (External): Present: Atraumatic. No: Abrasion, Contusion, Laceration Nose (Internal): Present: Normal Inspection, No Active Bleeding. No: Edematous, Rhinorrhea, Septal Hematoma, Epistaxis Neck: Present: Normal Range of Motion, Trachea Midline. No: Meningeal Signs, MIDLINE TENDERNESS, Paraspinal Tenderness, Lymphadenopathy Respiratory/Chest: Present: Clear to Auscultation, Good Air Exchange. No: Respiratory Distress, Accessory Muscle Use, Wheezes, Decreased Breath Sounds, Rales, Retracting, Rhonchi, Tachypneic, Tender to Palpation Cardiovascular: Present: Regular Rate and Rhythm, Normal S1, S2. No: Murmurs Abdomen: No: Tenderness, Distention, Peritoneal Signs, Rebound, Guarding Back: Present: Normal Inspection. No: CVA Tenderness, Midline Tenderness, Paraspinal Tenderness, Decubitus Ulcer Upper Extremity: Present: Normal Inspection, Normal ROM, NORMAL PULSES, Neurovascularly Intact, Capillary Refill < 2s. No: Cyanosis, Edema, Tenderness, Swelling, Erythema, Deformity Lower Extremity: Present: Normal Inspection, NORMAL PULSES, Normal ROM, Capillary Refill < 2 s. No: Edema, Tenderness, Swelling, Erythema, Deformity Neurological: Present: GCS=15, CN II-XII Intact, Speech Normal, Motor Func Grossly Intact, Memory Normal Skin: Present: Warm, Dry, Normal Color. No: Rashes Psychiatric: Present: Alert, Oriented x 3, Normal Insight, Normal Concentration <Víctor Millard - Last Filed: 09/22/18 01:19> Vital Signs Temp Pulse Resp BP Pulse Ox 09/22/18 04:00 91 H 16 112/68 98 09/22/18 02:49 98.0 F 87 18 109/69 96 09/22/18 00:05 85 18 147/79 96 09/21/18 22:10 97.9 F 89 18 149/80 97 <Alexys Marti - Last Filed: 09/22/18 06:10> Medical Decision Making ED Course and Treatment: 09/21/18 22:30 -Labs -CT head -Case discussed with Dr. Marti, he agreed with the plan of care -Observe and reassess 09/22/18 00:31 -CT Head No acute intracranial abnormality. -Labs are non significant except potassium 3.5 (mildly low, potassium chloride 20meq po ordered), -Alcohol 358, IV banana bag ordered for her -Pending for the patient to be sobered. 09/22/18 01:40am -Case discussed and endorsed to the ER attending DR. Marti for pending sober and final dispo. - RAD Interpretation Radiology Orders: EXAM: CT Head without Intravenous Contrast. CLINICAL HISTORY: ETOH ON BREATH - FOUND ON GRASS TECHNIQUE: Axial computed tomography images of the head/brain without intravenous contrast. 1786.19 mGy-cm COMPARISON: None provided. FINDINGS: BRAIN No acute intraparenchymal hemorrhage. No mass lesion. No CT evidence for acute territorial infarct. No midline shift or extra-axial collections. VENTRICLES: No hydrocephalus. ORBITS: The orbits are unremarkable. SINUSES AND MASTOIDS: The paranasal sinuses and mastoid air cells are clear. BONES: No fracture. SOFT TISSUES: Unremarkable. IMPRESSION: No acute intracranial abnormality. Electronically signed on Sep 21, 2018 11:29:38 PM EDT by: Mike Elias M.D., FAHAD Certified By ABR & CBCCT Fellowship Trained MRI and CT Specialist Relocation Associate: Radiologist <Víctor Millard - Last Filed: 09/22/18 01:19> ED Course and Treatment: 09/22/18 06:09 patient is awake and alert, steady gait and clear speech, no s/s of acute alcohol withdrawal. stable for dc - Lab Interpretations Lab Results: Total Bilirubin 0.1 mg/dL (0.2-1.3) L 09/21/18 23:20 AST 42 U/L (14-36) H D 09/21/18 23:20 ALT 17 U/L (7-56) 09/21/18 23:20 Alkaline Phosphatase 61 U/L (38-126) 09/21/18 23:20 Total Protein 7.5 g/dL (5.8-8.3) 09/21/18 23:20 Albumin 4.3 g/dL (3.0-4.8) 09/21/18 23:20 Globulin 3.2 gm/dL 09/21/18 23:20 Albumin/Globulin Ratio 1.4 (1.1-1.8) 09/21/18 23:20 - RAD Interpretation Radiology Orders: 09/21/18 22:26 HEAD W/O CONTRAST [CT] Stat - Medication Orders Current Medication Orders: Discontinued Medications Multivitamins/Vitamin C 10 ml/Thiamine HCl 100 mg/ Folic Acid 1 mg/ Sodium Ch loride 1,011.2 mls @ 1,000 mls/hr IV .Q1H1M ONE Stop: 09/22/18 01:29 Last Admin: 09/22/18 00:50 Dose: 1,000 mls/hr eMAR Start Stop Document 09/22/18 00:50 KV (Rec: 09/22/18 00:50 KV [id number]) Intravenous Solution Start Date 09/22/18 Start Time 00:50 Potassium Chloride (K-Dur 20 Meq Er Tab) 20 meq PO STAT STA Stop: 09/22/18 00:31 Last Admin: 09/22/18 00:47 Dose: 20 meq <Alexys Marti - Last Filed: 09/22/18 06:10> - PA / [employer]IDE [employer]SEM[employer] SUPERVISOR / Resident Statement MD/DO has reviewed & agrees with the documentation as recorded. <Víctor Millard - Last Filed: 09/22/18 01:19> Disposition/Present on Arrival - Present on Arrival Any Indicators Present on Arrival: No History of DVT/PE: No History of Uncontrolled Diabetes: No Urinary Catheter: No History of Decub. Ulcer: No History Surgical Site Infection Following: None - Disposition Have Diagnosis and Disposition been Completed?: Yes Disposition Time: 00:32 <Víctor Millard - Last Filed: 09/22/18 01:19> - Disposition Disposition Time: 06:10 Patient Plan: Discharge <Alexys Marti - Last Filed: 09/22/18 06:10> - Disposition Diagnosis: Alcohol abuse, Alcohol intoxication, Hypokalemia Disposition: HOME/ ROUTINE Patient Problems: Current Active Problems Problem Status Onset Alcohol abuse Acute Alcohol intoxication Acute Hypokalemia Acute Condition: STABLE Discharge Instructions (ExitCare): Alcohol Abuse and Alcoholism (DC) Additional Instructions: seek help for your alcohol abuse. Referrals: [facility] [Outside] - Follow up with primary Forms: [employer] ([place])
[2018-09-21 23:28] LABS: BASO # 0.05 K/mm3 (0.0-2.0); BASO % 0.8 % (0.0-3.0); EOS # 0.3 (0.0-0.7); EOS % 4.9 % (1.5-5.0); HEMOGLOBIN 9.9 g/dL (12.0-16.0); LYMPH # 2.9 (1.2-3.4); LYMPH % 45.6 % (22.0-35.0); MEAN CELL VOLUME 91.7 fl (80.0-105.0); MEAN CORPUSCULAR HEMOGLOBIN 28.4 pg (25.0-35.0); MEAN PLATELET VOLUME 7.9 fl (7.0-11.0); MONO # 0.5 (0.1-0.6); MONO % 7.9 % (1.0-6.0); RBC 3.48 10^6/uL (3.5-6.1); RED CELL DISTRIBUTION WIDTH 18.2 % (11.5-14.5); WHITE BLOOD COUNT 6.3 10^3/uL (4.5-11.0)
[2018-09-22] MEDS ORDERED: Multivitamin (MVI) 10 ML, Thiamine 100 MG, Folic Acid 1 MG in Sodium Chloride 0.9% 1,00... IV ONE (00:29)
[2018-09-22 00:30] LABS: ALB/GLOB RATIO 1.4 (1.1-1.8); ALBUMIN 4.3 g/dL (3.0-4.8); ALT/SGPT 17 U/L (7-56); AST/SGOT 42 U/L (14-36); BLOOD UREA NITROGEN 15 mg/dL (7-21); CALCIUM 9.2 mg/dL (8.4-10.5); GFR NON-AFRICAN AMERICAN > 60
[2018-09-22] MEDS ORDERED: Potassium Chloride 20 mEq ER Tab PO STA (00:30)
[2018-09-22 02:50] VITALS: TEMP 98
[2018-09-22 05:23] VITALS: BP 112/68; PULSE 91; RESP 16; O2SAT 98
--- NOTE | 2018-09-22 08:29 | CT ---
Date of service: 09/21/2018 PROCEDURE: CT HEAD WITHOUT CONTRAST. HISTORY: etoh on breath, found on the grass COMPARISON: None available. TECHNIQUE: Axial computed tomography images were obtained through the head/brain without intravenous contrast. Radiation dose: Total exam DLP = 1786.2 mGy-cm. This CT exam was performed using one or more of the following dose reduction techniques: Automated exposure control, adjustment of the mA and/or kV according to patient size, and/or use of iterative reconstruction technique. FINDINGS: HEMORRHAGE: No intracranial hemorrhage. BRAIN: No mass effect or edema. The chapa-white matter differentiation appears intact. Please note that MRI with diffusion imaging is more sensitive in the detection of acute ischemic event. VENTRICLES: No hydrocephalus. CALVARIUM: Unremarkable. PARANASAL SINUSES: Unremarkable as visualized. No significant inflammatory changes. MASTOID AIR CELLS: Unremarkable as visualized. No inflammatory changes. OTHER FINDINGS: None. IMPRESSION: No acute intracranial pathology identified. Preliminary impression was provided by [employer].
== END 2018-09-22 06:57 | disposition home or self-care (01) ==
LOC: ED 21:52
DX: F10.129 Alcohol abuse with intoxication, unspecified (principal); E87.6 Hypokalemia; I10 Essential (primary) hypertension; J44.9 Chronic obstructive pulmonary disease, unspecified
CPT/HCPCS: 70450; 80053; 80320; 83735; 85025; 99284; J3411; J7030